=== PATIENT | female | born 1945 | race Caucasian/White ===

== ENCOUNTER 2016-10-05 11:56 | Emergency (ER) | payer MEDICARE, MEDICAID ==
[2016-10-05 12:11] VITALS: BP 107/79
[2016-10-05] MEDS ORDERED: LIDOCAINE 5 APPL TUBE TP ONE (12:59)
--- NOTE | 2016-10-05 13:12 | ERNOTE ---
Integumentary HPI - Narrative Date of Service: 10/05/16 - General Presenting Symptoms: rash Time Seen by Provider: 10/05/16 12:42 Source: patient Exam Limitations: no limitations - Immun/Allergies/Home Medications Immunizations: IMMUNIZATION HX Immunizations Up to Date Yes History of Influenza Vaccine No Hx Pneumococcal Vaccination Yes Allergies/Adverse Reactions: Allergies Allergy/AdvReac Type Severity Reaction Status Date / Time ciprofloxacin Allergy Intermediate BRONCHOSPAS Verified 10/05/16 12:11 M codeine [Codeine] AdvReac Mild ABD PAIN Verified 10/05/16 12:11 codeine phosphate AdvReac Mild ABD PAIN Verified 10/05/16 12:11 [From Codeine Phosphate Soluble] Home Medications: HOME MEDICATIONS Aspirin [Aspirin Chewable] 81 mg PO DAILY 02/05/15 [Last Taken 03/10/15 07:00] DULoxetine HCL [Cymbalta] 60 mg PO DAILY #0 03/06/15 [Last Taken 03/10/15 07:00 ] Acetaminophen [Tylenol] 650 mg PO Q4H PRN 04/18/15 [Last Taken Unknown] Ascorbic Acid [Vitamin C] 500 mg PO DAILY 04/18/15 [Last Taken Unknown] Calcium Carb/D3/Magnesium/Zinc [Ryan Mag Zinc + D Tablet] 1 each PO TID 04/18/15 [Last Taken Unknown] Cholecalciferol [Vitamin D] 1,000 unit PO DAILY 04/18/15 [Last Taken Unknown] Insulin Glargine,Hum.rec.anlog [Lantus] 8 units SC DAILY 04/18/15 [Last Taken Unknown] Insulin Lispro [Humalog] 8 unit SQ 1700 04/18/15 [Last Taken Unknown] Insulin Lispro [Humalog] 16 unit SQ BID 04/18/15 [Last Taken Unknown] oxyCODONE HCL/ACETAMINOPHEN [Percocet 5 MG/325 MG] 1 - 2 tab PO Q4H PRN #30 tab 04/24/15 [Last Taken Unknown] Oxycodone HCl/Acetaminophen [Percocet 10-325 mg Tablet] 1 each PO QID #20 tablet 08/07/15 [Last Taken Unknown] diphenhydrAMINE HCL [Benadryl] 25 mg PO Q6H PRN #30 cap 09/20/16 [Last Taken Unknown] Amlodipine Besylate [Norvasc] 2.5 mg PO DAILY 10/05/16 [Last Taken Unknown] Bisacodyl [Dulcolax] 5 mg PO DAILY PRN 10/05/16 [Last Taken Unknown] Gabapentin [Neurontin] 300 mg PO QID 10/05/16 [Last Taken Unknown] Ibuprofen [Motrin] 800 mg PO QID PRN 10/05/16 [Last Taken Unknown] Lamotrigine [Lamictal Xr] 100 mg PO BID 10/05/16 [Last Taken Unknown] Levothyroxine Sodium [Synthroid] 25 mcg PO DAILY 10/05/16 [Last Taken Unknown] Lidocaine [Lc-5] 45 gm TP BID #1 cream..g. 10/05/16 [Last Taken Unknown] Losartan Potassium [Cozaar] 25 mg PO DAILY 10/05/16 [Last Taken Unknown] Magnesium 250 mg PO TID 10/05/16 [Last Taken Unknown] Methotrexate Sodium [Methotrexate] 2.5 mg PO DAILY 10/05/16 [Last Taken Unknown] Metoprolol Tartrate [Lopressor] 25 mg PO BID 10/05/16 [Last Taken Unknown] Miconazole Nitrate 1 appl TP BID #1 tube 10/05/16 [Last Taken Unknown] Mirtazapine [Mirtazapine (Remeron)] 15 mg PO DAILY 10/05/16 [Last Taken Unknown] Multivitamin [One Daily Essential] 1 each PO DAILY 10/05/16 [Last Taken Unknown] Omeprazole [Prilosec] 20 mg PO DAILY 10/05/16 [Last Taken Unknown] Prednisone [Moon] 5 mg PO DAILY 10/05/16 [Last Taken Unknown] Simvastatin [Zocor] 40 mg PO HS 10/05/16 [Last Taken Unknown] - History of Present Illness Narrative: Pt. comes in with c/o increase pain from ringworm on her back. Pt. was diagnosed with ring worm three weeks ago and was started on a cream and pill and is unsure of what medications she has been on for this but states that the pain has worsened over the rash. Review of Systems - Review of Systems Constitutional: Present: no symptoms reported. Absent: recent illness, fever, chills, fatigue, malaise EYE: Present: no symptoms reported ENT: Present: no symptoms reported Respiratory: Present: no symptoms reported. Absent: shortness of breath, cough , wheezing Cardiology: Present: no symptoms reported. Absent: chest pain, palpitations, edema Gastrointestinal/Abdominal: Present: no symptoms reported. Absent: nausea, vomiting, diarrhea Genitourinary: Present: no symptoms reported Musculoskeletal: Present: no symptoms reported. Absent: back pain, joint pain Skin: Present: rash - middle of back and in spots on R and L side of spine Neurological: Present: no symptoms reported. Absent: headache, dizziness/light- headedness, numbness, tingling All Other Systems: All systems neg except as marked - Patient's Past Medical History Patient History - Medical: Anxiety, Arthritis, Cataracts, Chronic Pain, Diabetes Type 2, Depression, UTI'S Patient History - Cardiac/Respiratory: Hypertension, Hyperlipidemia Patient History - Cancer: No Hx of Cancer Patient History - Surgical Procedures: Back Surgery, Cataracts, Cholecystectomy , Other - Family History Mother Family History - Medical: Family History - Cardiac/Respiratory: CHF, Myocardial Infarction Brother Family History - Medical: - Social History Living Situations: home Alcohol Use: none Drug Use: none Physical Exam - Physical Exam General Appearance: Present: wd/wn, alert, no apparent distress Eye Exam: Normal inspection: bilateral, PERRL: bilateral, EOMI: bilateral Ears, Nose, Throat: Present: normal ENT inspection, hearing grossly normal, normal pharynx Neck: Present: normal inspection, nontender. Absent: lymphadenopathy (R), lymphadenopathy (L) Respiratory: Present: no respiratory distress, normal breath sounds, no accessory muscle use, chest nontender, lungs clear Cardiovascular/Chest: Present: regular rate, rhythm, no murmur, normal peripheral pulses Gastrointestinal/Abdominal: Present: normal bowel sounds, nontender, nondistended, soft, no organomegaly Back Exam: Present: normal range of motion, no CVA tenderness, no vertebral tenderness Extremity Exam: Present: normal inspection, non-tender, no edema, normal range of motion Neurological Exam: Present: alert, oriented, normal mood/affect, no motor/ sensory deficits, 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 Vital Signs: Vital Signs 10/05/16 12:05 Temperature 36.2 C L Pulse Rate 97 Respiratory 12 Rate Blood Pressure 107/79 O2 Sat by Pulse 96 Oximetry - Progress/Reassessment Chief Complaint: Rash Departure Clinical Impression: Ringworm - Departure Disposition: Home self-care Condition: Good Instructions: Body Ringworm Additional Instructions: Please stop the turbinafine and start miconazole cream and lidocaine cream. Referrals: Michael Small MD [Primary Care Provider] - Prescriptions: Lidocaine [Lc-5] 45 gm TP BID #1 cream..g. Miconazole Nitrate 1 appl TP BID #1 tube
[2016-10-05] MEDS ORDERED: LIDOCAINE 35 APPL TUBE TP ONE (13:13)
== END 2016-10-05 13:23 | disposition home or self-care (01) ==
LOC: ER 11:56
DX: B35.8 Other dermatophytoses (principal); Z90.49 Acquired absence of other specified parts of digestive tract; E11.9 Type 2 diabetes mellitus without complications; Z79.4 Long term (current) use of insulin; F41.1 Generalized anxiety disorder

== ENCOUNTER 2016-10-16 10:35 | Emergency (ER) | payer MEDICARE, MEDICAID ==
[2016-10-16] MEDS ORDERED: NORMAL SALINE 1,000 ML IV ONE (13:10)
[2016-10-16] MEDS ORDERED: ONDANSETRON HCL/PF 2 MG/ML VIAL IV ONE (13:11)
--- NOTE | 2016-10-16 13:20 | ERNOTE ---
Integumentary HPI - Narrative Date of Service: 10/16/16 - General Presenting Symptoms: rash, other - weakness, SOB, abd pain, NVD Time Seen by Provider: 10/16/16 12:43 Source: patient, family Exam Limitations: no limitations - Immun/Allergies/Home Medications Immunizations: IMMUNIZATION HX Immunizations Up to Date Yes History of Influenza Vaccine No Hx Pneumococcal Vaccination Yes Allergies/Adverse Reactions: Allergies Allergy/AdvReac Type Severity Reaction Status Date / Time ciprofloxacin Allergy Intermediate BRONCHOSPAS Verified 10/16/16 11:17 M codeine [Codeine] AdvReac Mild ABD PAIN Verified 10/16/16 11:17 codeine phosphate AdvReac Mild ABD PAIN Verified 10/16/16 11:17 [From Codeine Phosphate Soluble] Home Medications: HOME MEDICATIONS Aspirin [Aspirin Chewable] 81 mg PO DAILY 02/05/15 [Last Taken 03/10/15 07:00] DULoxetine HCL [Cymbalta] 60 mg PO DAILY #0 03/06/15 [Last Taken 03/10/15 07:00 ] Acetaminophen [Tylenol] 650 mg PO Q4H PRN 04/18/15 [Last Taken Unknown] Ascorbic Acid [Vitamin C] 500 mg PO DAILY 04/18/15 [Last Taken Unknown] Calcium Carb/D3/Magnesium/Zinc [Ryan Mag Zinc + D Tablet] 1 each PO TID 04/18/15 [Last Taken Unknown] Cholecalciferol [Vitamin D] 1,000 unit PO DAILY 04/18/15 [Last Taken Unknown] Insulin Glargine,Hum.rec.anlog [Lantus] 8 units SC DAILY 04/18/15 [Last Taken Unknown] Insulin Lispro [Humalog] 8 unit SQ 1700 04/18/15 [Last Taken Unknown] Insulin Lispro [Humalog] 16 unit SQ BID 04/18/15 [Last Taken Unknown] oxyCODONE HCL/ACETAMINOPHEN [Percocet 5 MG/325 MG] 1 - 2 tab PO Q4H PRN #30 tab 04/24/15 [Last Taken Unknown] Oxycodone HCl/Acetaminophen [Percocet 10-325 mg Tablet] 1 each PO QID #20 tablet 08/07/15 [Last Taken Unknown] diphenhydrAMINE HCL [Benadryl] 25 mg PO Q6H PRN #30 cap 09/20/16 [Last Taken Unknown] Amlodipine Besylate [Norvasc] 2.5 mg PO DAILY 10/05/16 [Last Taken Unknown] Bisacodyl [Dulcolax] 5 mg PO DAILY PRN 10/05/16 [Last Taken Unknown] Gabapentin [Neurontin] 300 mg PO QID 10/05/16 [Last Taken Unknown] Ibuprofen [Motrin] 800 mg PO QID PRN 10/05/16 [Last Taken Unknown] Lamotrigine [Lamictal Xr] 100 mg PO BID 10/05/16 [Last Taken Unknown] Levothyroxine Sodium [Synthroid] 25 mcg PO DAILY 10/05/16 [Last Taken Unknown] Lidocaine [Lc-5] 45 gm TP BID #1 cream..g. 10/05/16 [Last Taken Unknown] Losartan Potassium [Cozaar] 25 mg PO DAILY 10/05/16 [Last Taken Unknown] Magnesium 250 mg PO TID 10/05/16 [Last Taken Unknown] Methotrexate Sodium [Methotrexate] 2.5 mg PO DAILY 10/05/16 [Last Taken Unknown] Metoprolol Tartrate [Lopressor] 25 mg PO BID 10/05/16 [Last Taken Unknown] Miconazole Nitrate 1 appl TP BID #1 tube 10/05/16 [Last Taken Unknown] Mirtazapine [Mirtazapine (Remeron)] 15 mg PO DAILY 10/05/16 [Last Taken Unknown] Multivitamin [One Daily Essential] 1 each PO DAILY 10/05/16 [Last Taken Unknown] Omeprazole [Prilosec] 20 mg PO DAILY 10/05/16 [Last Taken Unknown] Prednisone [Moon] 5 mg PO DAILY 10/05/16 [Last Taken Unknown] Simvastatin [Zocor] 40 mg PO HS 10/05/16 [Last Taken Unknown] hydrOXYzine HCL [Atarax] 25 mg PO Q4H PRN #40 tab 10/16/16 [Last Taken Unknown] - History of Present Illness Narrative: Pt. comes in with c/o abd pain, nausea, vomiting, weakness, SOB, cough, generalized rash, and malaise. Pt. states that there were bed bugs recently found in her couch and in her home. Pt. denies any fevers but states that she took her insulin this morning and has not been able to eat or drink this morning and keep it down. Pt. has been undergoing treatment for ringworm without resolution. Review of Systems - Review of Systems Constitutional: Present: weakness, fatigue, malaise. Absent: recent illness, fever, chills EYE: Present: no symptoms reported ENT: Present: no symptoms reported Respiratory: Present: shortness of breath, cough, orthopnea. Absent: wheezing Cardiology: Present: no symptoms reported. Absent: chest pain, palpitations, edema Gastrointestinal/Abdominal: Present: nausea, vomiting, diarrhea, abdominal pain - BUQ Genitourinary: Present: no symptoms reported. Absent: frequency, decreased urinary output Musculoskeletal: Present: no symptoms reported. Absent: back pain, joint pain Skin: Present: rash - B arms chest and back. Absent: change in color, change in hair/nails Neurological: Present: dizziness/light-headedness. Absent: headache, numbness, tingling Endocrine: Present: no symptoms reported Hematologic/Lymphatic: Present: no symptoms reported All Other Systems: All systems neg except as marked - Patient's Past Medical History Patient History - Medical: Anxiety, Arthritis, Cataracts, Chronic Pain, Diabetes Type 2, Depression, UTI'S Patient History - Cardiac/Respiratory: Hypertension, Hyperlipidemia Patient History - Cancer: No Hx of Cancer Patient History - Surgical Procedures: Back Surgery, Cataracts, Cholecystectomy , Other - Family History Mother Family History - Medical: Family History - Cardiac/Respiratory: CHF, Myocardial Infarction Brother Family History - Medical: - Social History Living Situations: home Smoking Status: Former smoker Have you smoked in the past 12 months: No Do you dip or chew tobacco: No Alcohol Use: none Drug Use: none Physical Exam - Physical Exam General Appearance: Present: wd/wn, alert, no apparent distress Eye Exam: Normal inspection: bilateral, PERRL: bilateral, EOMI: bilateral Ears, Nose, Throat: Present: normal ENT inspection, hearing grossly normal, normal pharynx Neck: Present: normal inspection, nontender. Absent: lymphadenopathy (R), lymphadenopathy (L) Respiratory: Present: no respiratory distress, no accessory muscle use, chest nontender, decreased breath sounds. Absent: rhonchi Cardiovascular/Chest: Present: regular rate, rhythm, normal peripheral pulses, systolic murmur Gastrointestinal/Abdominal: Present: tenderness - BUQ, abnormal bowel sounds - hyper. 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 - Vital Signs Patient's Vital Signs:: I have reviewed the patient's vital signs. Vital Signs: Vital Signs 10/16/16 11:13 Temperature 36.2 C L Pulse Rate 99 Respiratory 14 Rate Blood Pressure 129/56 O2 Sat by Pulse 98 Oximetry - EKG EKG: NSR, unchanged from, other - ivcd EKG read: Interp. by me - X-Ray X-Ray #1 X-Ray: chest Interpretation: Interp. by me X-ray Comments: no acute CP process X-Ray #2 X-Ray: abdomen Interpretation: Interp. by me X-ray Comments: prominent gastrum and small bowel some mild air fluid levels non obstructive. - Progress/Reassessment Chief Complaint: Rash Progress:: Unchanged Departure Clinical Impression: Gastroenteritis, Infestation by bed bug COPD (chronic obstructive pulmonary disease) Qualifiers: COPD type: unspecified COPD Qualified Code(s): J44.9 - Chronic obstructive pulmonary disease, unspecified - Departure Disposition: Home self-care Condition: Good Instructions: Rehydration, Elderly, Viral Gastroenteritis, Adult, [id number] Additional Instructions: Please follow up with primary provider in 2-3 days. Increase fluid intake. Referrals: Michael Small MD [Primary Care Provider] - Prescriptions: hydrOXYzine HCL [Atarax] 25 mg PO Q4H PRN #40 tab PRN Reason: Itching
[2016-10-16 13:32] LABS: Hematocrit 39.7 % (37.0-47.0); Hemoglobin 12.8 gm/dL (12.5-16.0); Mean Corpuscular Hemoglobin 32.2 pg (27-31); Mean Corpuscular Hgb Conc 32.2 g/dl (32-36); Mean Platelet Volume 8.6 fl (6.0-9.5); Neutrophil # 10.1 K/mm3 (1.3-6.0); Neutrophil % 90.6 % (42-75.0); Platelet Count 332 K/mm3 (150-450); Red Blood Count 3.97 M/mm3 (4.2-5.4); Red Cell Distribution Width 14.3 % (11.5-14.0); White Blood Count 11.2 K/mm3 (4.0-10.5)
[2016-10-16 13:52] LABS: ALT 27 U/L (19-67); AST 17 U/L (0-48); Albumin * 3.8 gm/dl (3.4-5.0); Alkaline Phosphatase * 76 U/L (50-170); Amylase * 50 U/L (25-115); Anion Gap 12.7 mmol/L (6.8-13.8); BNP * 60 pg/mL (5-325); BUN/Creatinine Ratio 27.1 (9.0-21.6); Bilirubin, Total 0.4 mg/dL (0.0-1.1); Blood Urea Nitrogen 23 mg/dL (3-23); Calcium * 9.2 mg/dL (7.9-10.9); Carbon Dioxide 28.7 mmol/L (24-32.6); Chloride 106 mmol/L (97-106); Glucose * 93 mg/dL (70-110); Lipase 114 U/L (73-393); Potassium 4.4 mmol/L (3.4-4.6); Sodium 143 mmol/L (132-142); Total Protein 7.5 gm/dL (6.2-8.2); Troponin I Less than 0.017 ng/ml (0.00-0.10)
[2016-10-16 16:19] LABS: Urine Appearance Slightly Cloudy; Urine Bilirubin Negative (NEGATIVE); Urine Blood Negative /ul (NEGATIVE); Urine Color Yellow; Urine Ketone 5 mg/dL (NEGATIVE)
[2016-10-16 16:20] LABS: Urine Nitrite Negative (NEGATIVE); Urine Protein Negative (NEGATIVE); Urine Urobilinogen Normal (NORMAL)
[2016-10-16] MEDS ORDERED: ONDANSETRON 4 MG TAB.RAPDIS PO ONE (16:20)
[2016-10-16 16:22] LABS: Urine Bacteria 1+; Urine RBC None Seen /hpf (0-5)
[2016-10-16 16:23] LABS: Urine Mucus Few - 1+
[2016-10-16] MEDS ORDERED: ONDANSETRON 4 MG TAB.RAPDIS ONE (16:25)
[2016-10-16 18:14] VITALS: BP 110/81
== END 2016-10-16 18:18 | disposition home or self-care (01) ==
LOC: ER 10:35
DX: K52.9 Noninfective gastroenteritis and colitis, unspecified (principal); B88.8 Other specified infestations; J44.9 Chronic obstructive pulmonary disease, unspecified; N39.0 Urinary tract infection, site not specified; Z87.891 Personal history of nicotine dependence; Z90.49 Acquired absence of other specified parts of digestive tract; I10 Essential (primary) hypertension; E11.9 Type 2 diabetes mellitus without complications; Z79.4 Long term (current) use of insulin

== ENCOUNTER 2016-12-22 08:32 | Observation (INO) | payer MEDICARE, MEDICAID ==
--- OUTSIDE RECORDS SUMMARY | 2016-12-22 08:58 | XMS REPORT | Continuity of Care Document ---
:1945 Author Organization [facility] ([facility]) Address [address] [place] [address] Phone [phone] Care Team Providers Name Role Phone Michael Brothers Primary Care Provider [phone] Source Comments This disclosure is being made pursuant to the Care Everywhere program, applicable federal and state laws, and may not contain all informaitonavailable regarding this patient.[facility] ([facility]) Active Allergies and Adverse Reactions Allergen Noted Date Severity Reactions Comments Ciprofloxacin 02/24/2015 Rash Codeine OTHER hyper Topiramate Urticaria (Hives) Current Medications Prescription Sig. Disp. Refills Start End Date Status Date lamoTRIgine 100 mg Take 100 mg by Active tablet mouth 2 times daily. aspirin 81 mg Take 81 mg by Active tablet mouth daily. Calcium-Magnesium- Take 1 Tab by Active Zinc Tab mouth 3 times daily CHOLECALCIFEROL, Take 1,000 mg by Active VITAMIN D3, mouth daily. (VITAMIN D-3 PO) DULoxetine 30 mg Take 60 mg by Active XR capsule mouth daily losartan 25 mg Take 25 mg by Active tablet mouth daily acetaminophen 325 Take 2 Tabs (650 30 Tab 0 Active mg tablet mg total) by mouth 5 every 6 hours as needed Do no exceed 3000 mg tylenol in 24 hours insulin glargine Inject 20 Units 10 mL 1 Active (LanTUS) 100 subcutaneously 5 unit/mL injection daily In morning vial insulin lispro INJECT 16 UNITS 10 mL 1 Active (HumaLOG) 100 SUBCUTANEOUSLY AT 5 unit/mL injection BREAKFAST AND vial LUNCH, 12 UNITS AT DINNER AND PER SLIDING SCALE 3 TIMES DAILY WITH MEALS polyethylene DISSOLVE 17 G (1 527 g 1 Active glycol 3350 CAPFUL) IN 8 5 (MIRALAX) 17 OUNCES OF LIQUID gram/dose powder AND DRINK DAILY SUPPLY insulin Inject 100 Syringe 2 Active syringe w/ needle subcutaneously 4 5 U-100 0.3 mL 31 g times daily x 02/07" metoPROLol Take 25 mg by Active tartrate 25 mg mouth 2 times tablet daily magnesium 250 mg Take 250 mg by Active tablet mouth 3 times daily simvastatin 40 mg Take 40 mg by Active tablet mouth every evening ALPRAZolam 1 mg Take 1 mg by mouth Active tablet 3 times daily as needed CALCIUM CARBONATE Take 1 tablet by Active (CALCIUM 600 PO) mouth daily vitamin E PO Take 1 tablet by Active mouth daily oxyCODONE-acetamin Take 1 tablet by Active ophen 7.5-325 mg mouth every 4 per tablet hours as needed ibuprofen 200 mg Take 800 mg by Active tablet mouth every 6 hours as needed omeprazole 20 mg Take 20 mg by Active enteric coated mouth daily capsule amLODIPine 2.5 mg Take 2.5 mg by Active tablet mouth daily multivitamin Take 1 tablet by Active tablet mouth daily. bisacodyl 5 mg EC Take 5 mg by mouth Active tablet daily. gabapentin 300 mg Take 600 mg by Active capsule mouth 3 times daily. denosumab (PROLIA) Inject 60 mg Active 60 mg/mL injection subcutaneously once. mirtazapine 15 mg Take 15 mg by Active tablet mouth at bedtime. methotrexate 2.5 Take 6 tablets (15 24 tablet 1 Active mg tablet mg total) by mouth 6 every week. folic acid 1 mg Take 1 tablet (1 90 tablet 1 Active tablet mg total) by mouth 6 daily. lidocaine 5 % Apply 1 Active ointment application topically 2 times daily as needed. clotrimazole-betam Apply topically 2 Active ethasone 1-0.05% times daily. cream calcium carbonate Take 300 mg by Active (TUMS) (300 mg Ca) mouth 2 times 750 mg chewable daily. tablet levothyroxine 25 Take 25 mcg by Active mcg tablet mouth daily. Synthroid predniSONE 5 mg Take 1 Tab (5 mg 30 Tab 0 12/21/19 Discontinued tablet total) by mouth 5 17 daily methotrexate 2.5 Take 8 tablets (20 32 tablet 2 12/15/19 Discontinued mg tablet mg total) by mouth 6 17 every week. Can take 4 tablet in the morning and 4 tablets in the evening of the same day. insulin aspart mix Inject 12/15/19 Discontinued (NovoLOG 70-30 subcutaneously 2 17 FLEXPEN) 100 times daily with unit/mL injection meals. 16 units pen before breakfast, 8 units before supper Active Problems Problem Noted Date Osteoporosis 06/17/2015 Compression fracture of Thoracic spine T11 02/24/2015 Back pain 02/24/2015 Seizure disorder 02/24/2015 Temporal arteritis 02/24/2015 Drug-induced hyperglycemia 02/24/2015 Acute, but ill-defined, cerebrovascular disease 02/01/2008 Most Recent Encounters Date Type Specialty Providers Description 12/20/2016 Telephone Med Endocrinology Kendy Escalante MD 12/14/2016 Office Visit Pathology Kendy Escalante Chief Comp: Patient MD Guillermo Reported Reason For Lab Services, Pfp Visit 12/14/2016 Office Visit Med Endocrinology Kendy Escalante Dx: Araceli Li MD (Primary Dx) Social History Tobacco Use Types Packs/Day Years Used Date Former Smoker Cigarettes 1.5 Quit: 02/20/1994 Smokeless Tobacco: Never Used Tobacco Cessation:Counseling Given: Yes Comments:Quit in 1979 Alcohol Use Drinks/Week oz/Week Comments No 0 Standard drinks or equivalent 0.0 Last Filed Vital Signs Vital Sign Reading Time Taken Blood Pressure 113/68 12/14/2016 1:07 PM CDT Pulse 74 12/14/2016 1:07 PM CDT Temperature 36.5 C (97.7 F) 12/14/2016 1:07 PM CDT Respiratory Rate 20 04/13/2015 12:15 PM CDT Height 1.626 m (5' 4.02") 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 Weight 83.5 kg (184 lb 1.4 oz) 12/14/2016 1:07 PM CDT Body Mass Index 31.58 12/14/2016 1:07 PM CDT Oxygen Saturation 98% 04/13/2015 12:15 PM CDT Plan of Care Date Type Specialty Providers Description 02/06/2017 Appointment Med Rheumatology Natacha Ennis, Chief Comp: Patient Reported Reason For [address] [place] [address] [phone] (Fax) 12/20/2017 Appointment [facility] Default, Other Bill[facility] - [facility] [address] [place] [address] [phone] (Fax) Chief Comp: Patient Krystina Barcenas MD [address] [place] [address] [phone] (Fax) Reported Reason For Visit 12/20/2017 Appointment Med Endocrinology Kendy Escalante Chief Comp: Alfred Li MD Reported Reason For [address] [facility] [place] [address] [phone] (Fax) Health Maintenance Due Date Last Done Comments Hepatitis B Vaccine (1 of 3 - Primary 1945 Series) Tdap Vaccine 12/03/1954 DIABETIC: Microalbumin 12/03/1961 Td Vaccine 12/03/1961 Mammogram 1983 Colonoscopy 12/03/1993 Zoster Vaccine 2003 Pneumococcal Vaccine (1 of 2 - PCV13) 12/03/2008 DIABETIC: Cholesterol 02/01/2009 02/02/2008 Diabetic: Hdl 02/01/2009 02/02/2008 Diabetic: Ldl 02/01/2009 02/02/2008 DIABETIC: Triglycerides 02/01/2009 02/02/2008 DIABETIC: Foot Exam 02/24/2015 DIABETIC: Retinal Eye Exam 02/24/2015 DIABETIC: Hemoglobin A1C 08/27/2015 02/25/2015, 02/02/2008 Influenza Vaccine: Seasonal (#1) 04/25/2016 Osteoporosis Screening (DXA Bone Density) Completed 06/24/2015 Results from Last 3 Months VITAMIN D, 25-HYDROXY (12/14/2016 2:15 PM) Component Value Range Vitamin D, 25-OH 32Comment: 20-80 ng/mL This assay accurately quantifies the sum of 25-hydroxyvitamin D3 and 25- hydroxyvitamin D2. Endocrine Society, [place] of [employer] (IOM), and World Health Organization (WHO) guidelines designate 25-h ydroxyvitamin D plasma concentrations below 20 ng/mL as deficient, based on increased frequency of adverse outcomes (e.g., osteoporotic fractures). 25-Hydroxyvitamin D reference ranges are a controversial topic, with some authorities suggesting optimal concentrations should be 30 ng/mL or higher based on correlations of 25-hydroxyvitamin D plasma concentrations with physiological parameters such as parathyroid hormone or calcium concentrations. However, optimal 25-hydroxyvitamin D concentrations greater than 20 ng/mL may be considered for specific disease conditions. Vitamin D toxicity is uncommon but may be seen at 25-hydroxyvitamin D concentrations greater than 150 ng/mL. Specimen Blood CREATININE (12/14/2016 2:15 PM) Component Value Range Creatinine 0.9Comment: 0.5-1.0 mg/dL Creatinine switched to enzymatic method on 02/01/2011.GFR equation switched to IDMS-traceable MDRD equation on 02/01/2011. Calculated GFR values are not valid in clinical settings where serum creatinine is changing. Calculated GFR 61 >60 mL/min/1.73 m2 Specimen Blood CALCIUM (12/14/2016 2:15 PM) Component Value Range Calcium 9.5 8.5-10.5 mg/dL Specimen Blood EXTERNAL MISCELLANEOUS LAB (11/28/2016) Component Value Range Ext Albumin 3.9 3.4-5.0 G/DL Ext ALT 29 19-67 U/L Ext AST 21 0-48 U/L Ext TSH 3.087 0.358-3.74 UIU/ML Ext Sedimentation Rate 30(A) 0-15 MM/HR Ext Creatinine 0.97 0.4-1.4 MG/DL Ext CRP <0.2 0.0-0.9 MG/DL Ext WBC Count 7.3 4.0-10.5 K/MM3 Ext Hemoglobin 12.8 12.5-16.0 G/DL Ext MCV (Mean Corpuscular Volume) 99 78-100 FL Ext Platelet Count 333 150-450 K/MM3
[2016-12-22 09:02] LABS: Urine Bilirubin Negative (NEGATIVE); Urine Ketone Negative (NEGATIVE); Urine Nitrite Negative (NEGATIVE); Urine Protein 15 mg/dL (NEGATIVE); Urine Specific Gravity 1.025 SP.GR. (1.005-1.010); Urine Urobilinogen Normal (NORMAL)
[2016-12-22 09:09] LABS: Urine Appearance Cloudy; Urine Bacteria 3+; Urine Blood 10 /ul (NEGATIVE); Urine Color Yellow; Urine RBC 0-5 /hpf (0-5); Urine Renal Epithelial Cell Few - 1+ /hpf; Urine WBC 25-50 /hpf (0-5)
--- NOTE | 2016-12-22 09:11 | ERNOTE ---
Medical Problem HPI - General Chief Complaint: General Assessment Time Seen by Provider: 12/22/16 08:46 Source: patient, family, EMS Exam Limitations: no limitations - Immun/Allergies/Home Medications Immunizations: IMMUNIZATION HX Immunizations Up to Date Yes History of Influenza Vaccine No Hx Pneumococcal Vaccination Yes Allergies/Adverse Reactions: Allergies ciprofloxacin Allergy (Intermediate, Verified 12/22/16 08:45) BRONCHOSPASM codeine [Codeine] Adverse Reaction (Mild, Verified 12/22/16 08:45) ABD PAIN codeine phosphate [From Codeine Phosphate Soluble] Adverse Reaction (Mild, Verified 12/22/16 08:45) ABD PAIN Home Medications: HOME MEDICATIONS Aspirin [Aspirin Chewable] 81 mg PO DAILY 02/05/15 [Last Taken 03/10/15 07:00] DULoxetine HCL [Cymbalta] 60 mg PO DAILY #0 03/06/15 [Last Taken 03/10/15 07:00 ] Acetaminophen [Tylenol] 650 mg PO Q4H PRN 04/18/15 [Last Taken Unknown] Ascorbic Acid [Vitamin C] 500 mg PO DAILY 04/18/15 [Last Taken Unknown] Calcium Carb/D3/Magnesium/Zinc [Ryan Mag Zinc + D Tablet] 1 each PO TID 04/18/15 [Last Taken Unknown] Cholecalciferol [Vitamin D] 1,000 unit PO DAILY 04/18/15 [Last Taken Unknown] Insulin Glargine,Hum.rec.anlog [Lantus] 8 units SC DAILY 04/18/15 [Last Taken Unknown] Insulin Lispro [Humalog] 8 unit SQ 1700 04/18/15 [Last Taken Unknown] Insulin Lispro [Humalog] 16 unit SQ BID 04/18/15 [Last Taken Unknown] oxyCODONE HCL/ACETAMINOPHEN [Percocet 5 MG/325 MG] 1 - 2 tab PO Q4H PRN #30 tab 04/24/15 [Last Taken Unknown] oxyCODONE HCL/ACETAMINOPHEN [Percocet 10-325 mg Tablet] 1 each PO QID #20 tablet 08/07/15 [Last Taken Unknown] Amlodipine Besylate [Norvasc] 2.5 mg PO DAILY 10/05/16 [Last Taken Unknown] Bisacodyl [Dulcolax] 5 mg PO DAILY PRN 10/05/16 [Last Taken Unknown] Gabapentin [Neurontin] 600 mg PO TID 10/05/16 [Last Taken Unknown] Ibuprofen [Motrin] 800 mg PO QID PRN 10/05/16 [Last Taken Unknown] Levothyroxine Sodium [Synthroid] 25 mcg PO DAILY 10/05/16 [Last Taken Unknown] Lidocaine [Lc-5] 45 gm TP BID #1 cream..g. 10/05/16 [Last Taken Unknown] Losartan Potassium [Cozaar] 25 mg PO DAILY 10/05/16 [Last Taken Unknown] Magnesium 250 mg PO TID 10/05/16 [Last Taken Unknown] Methotrexate Sodium [Methotrexate] 2.5 mg PO DAILY 10/05/16 [Last Taken Unknown] Metoprolol Tartrate [Lopressor] 25 mg PO BID 10/05/16 [Last Taken Unknown] Mirtazapine [Mirtazapine (Remeron)] 15 mg PO DAILY 10/05/16 [Last Taken Unknown] Multivitamin [One Daily Essential] 1 each PO DAILY 10/05/16 [Last Taken Unknown] Omeprazole [Prilosec] 20 mg PO DAILY 10/05/16 [Last Taken Unknown] Simvastatin [Zocor] 40 mg PO HS 10/05/16 [Last Taken Unknown] lamoTRIgine [Lamictal Xr] 100 mg PO BID 10/05/16 [Last Taken Unknown] Folic Acid 1 mg PO DAILY 12/22/16 [Last Taken Unknown] - History of Present History Narrative: Daughter states that her mother appears to be somewhat confused. She stated that the mother did not feel very well last night got up this morning and appeared to be unable to hold her balance very well and fell against the door jam. The ambulance people arrived she was found to be hypoglycemic and has apparently been improving very slowly after being given oral glucose. Timing: constant Severity: moderate Modifying Factors - (Improves): Present: other - glucose Review of Systems - Review of Systems Constitutional: Present: See HPI EYE: Present: no symptoms reported ENT: Present: no symptoms reported Respiratory: Present: no symptoms reported Cardiology: Present: no symptoms reported Gastrointestinal/Abdominal: Present: no symptoms reported Genitourinary: Present: no symptoms reported Musculoskeletal: Present: no symptoms reported Skin: Present: no symptoms reported Neurological: Present: other - pt is slow to respond Endocrine: Present: no symptoms reported Hematologic/Lymphatic: Present: no symptoms reported Psych: Present: no symptoms reported - Patient's Past Medical History Patient History - Medical: Anxiety, Arthritis, Cataracts, Chronic Pain, Diabetes Type 2, Depression, UTI'S Patient History - Cardiac/Respiratory: No pertinent hx Patient History - Cancer: No Hx of Cancer Patient History - Surgical Procedures: Back Surgery, Cataracts, Cholecystectomy , Other Patient History - Other: None - Family History Mother Family History - Medical: Family History - Cardiac/Respiratory: CHF, Myocardial Infarction Brother Family History - Medical: - Social History Living Situations: home Abuse History: No History of abuse Psych History: Hx of Anxiety, Hx of Depression Alcohol Use: none Drug Use: none - Immunizations Immunizations Up to Date: Yes Hx Pneumococcal Vaccination: Yes History of Influenza Vaccine: No Physical Exam - Physical Exam General Appearance: Present: wd/wn, alert, mild distress Eye Exam: Normal inspection: bilateral, PERRL: bilateral Ears, Nose, Throat: Present: normal ENT inspection, H, normal pharynx Neck: Present: normal inspection, nontender Respiratory: Present: no respiratory distress, normal breath sounds, no accessory muscle use, chest nontender, lungs clear Cardiovascular/Chest: Present: regular rate, rhythm, no murmur, normal peripheral pulses Gastrointestinal/Abdominal: Present: normal bowel sounds, nontender, nondistended, soft, no organomegaly Rectal Exam: Present: deferred Back Exam: Present: normal inspection, normal range of motion Extremity Exam: Present: normal inspection, non-tender, no edema, normal range of motion Neurological Exam: Present: alert, oriented, normal mood/affect, other - slow to respond but appears to respond appropriately Skin Exam: Present: normal color, warm/dry Lymphatic Exam: Present: no adenopathy ED Progress - Results and Orders Patient's Lab Results:: I have reviewed the patient's lab results. - Vital Signs Patient's Vital Signs:: I have reviewed the patient's vital signs. Vital Signs: Vital Signs 12/22/16 12/22/16 08:37 08:56 Temperature 36.8 C Pulse Rate 90 96 Respiratory 12 12 Rate Blood Pressure 134/75 119/64 O2 Sat by Pulse 92 96 Oximetry - X-Ray X-Ray #1 X-Ray: chest Interpretation: Reviewed by me - CT/Ultrasound CT/Ultrasound Narrative: CT results reviewed - Progress/Reassessment Chief Complaint: General Assessment Progress:: Unchanged Plan - Plan Plan: Patient appears to have a pyelonephritis and is somewhat confused and is worrisome for somebody who could possibly become septic. She will be given IV fluids IV antibiotics and be admitted to an observation bed. Patient is also struggling with getting her insulin dosage and her feeding right and showed up hypoglycemic as well, which indicates at least a low-grade level of confusion. Departure - Departure Clinical Impression: Pyelonephritis, acute Altered mental status, unspecified Qualifiers: Altered mental status type: unspecified Qualified Code(s): R41.82 - Altered mental status, unspecified Disposition: [facility] Condition: Fair
[2016-12-22 09:20] LABS: Hematocrit 38.1 % (37.0-47.0); Hemoglobin 12.1 gm/dL (12.5-16.0); Mean Cell Volume 101.6 fl (78-100); Mean Corpuscular Hemoglobin 32.3 pg (27-31); Mean Corpuscular Hgb Conc 31.8 g/dl (32-36); Mean Platelet Volume 8.8 fl (6.0-9.5); Platelet Count 287 K/mm3 (150-450); Red Blood Count 3.75 M/mm3 (4.2-5.4); Red Cell Distribution Width 13.3 % (11.5-14.0); White Blood Count 8.3 K/mm3 (4.0-10.5)
[2016-12-22] MEDS: NORMAL SALINE 1,000 ML in NORMAL SALINE 1,000 ML IV ONE ×2 (09:39→10:43)
[2016-12-22 09:49] LABS: Albumin * 3.5 gm/dl (3.4-5.0); Anion Gap 9.1 mmol/L (6.8-13.8); Bilirubin, Total 0.2 mg/dL (0.0-1.1); Ca. Corrected For Albumin 9.4 mg/dL (8.4-10.2); Calcium * 9.3 mg/dL (7.9-10.9); Carbon Dioxide 29.7 mmol/L (24-32.6); Potassium 3.8 mmol/L (3.4-4.6)
--- OUTSIDE RECORDS SUMMARY | 2016-12-22 10:50 | XMS REPORT | Continuity of Care Document ---
:1945 Author Organization [facility] ([facility]) Address [address] [place] [address] Phone [phone] Care Team Providers Name Role Phone Michael Brothers Primary Care Provider [phone] Source Comments This disclosure is being made pursuant to the Care Everywhere program, applicable federal and state laws, and may not contain all informaitonavailable regarding this patient.[facility] ([facility]) Active Allergies and Adverse Reactions Allergen Noted [...] 1.626 m (5' 4.02") 08/10/2016 10:45 AM [facility] Weight 83.5 kg (184 lb 1.4 oz) 12/14/2016 1:07 PM CDT Body Mass Index 31.58 12/14/2016 1:07 PM CDT Oxygen Saturation 98% 04/13/2015 12:15 PM CDT Plan of Care Date Type Specialty Providers Description 02/06/2017 Appointment Med Rheumatology Natacha Ennis, Chief Comp: Patient Reported Reason For [address] [place] [address] [phone] (Fax) 12/20/2017 Appointment [facility], Other Billg - [facility] [address] [place] [address] [phone] (Fax) Chief Comp: Patient Krystina Barcenas MD [address] [place] [address] [phone] (Fax) Reported Reason For Visit 12/20/2017 Appointment Med Endocrinology Kendy Escalante Chief Comp: Alfred Li MD Reported Reason For [address] [facility] [place] [address] [phone] (Fax) Health Maintenance Due Date Last Done [...] D3 and 25- hydroxyvitamin D2. Endocrine Society, [place] of [employer] (IOM), and World Health Organization [...]
[2016-12-22] MEDS ORDERED: ACETAMINOPHEN 325 MG TABLET PO PRN (12:03)
[2016-12-22] MEDS ORDERED: BISACODYL 5 MG TABLET.DR PO PRN (12:03)
[2016-12-22] MEDS ORDERED: ALPRAZolam 1 MG TABLET PO PRN (12:03)
[2016-12-22] MEDS ORDERED: ALBUTEROL SULFATE 2.5 MG/3 ML VIAL.NEB IH PRN (12:03)
[2016-12-22] MEDS ORDERED: CALCIUM CARBONATE 500 MG TAB.CHEW PO PRN (12:03)
[2016-12-22] MEDS ORDERED: NORMAL SALINE 1,000 ML IV PRN (12:07)
[2016-12-22] MEDS ORDERED: DENOSUMAB 60 MG SQ SCH (12:15)
[2016-12-22] MEDS: ENOXAPARIN SODIUM 40 MG/0.4 ML SYRG SC SCH (13:40)
[2016-12-22] MEDS: GABAPENTIN 300 MG CAPSULE PO SCH ×2 (13:41→21:00)
[2016-12-22] MEDS: CALCIUM CARBONATE/VITAMIN D3 1 TAB TABLET PO SCH ×2 (13:41→17:39)
[2016-12-22] MEDS: lamoTRIgine 100 MG TABLET PO SCH ×2 (13:45→20:57)
[2016-12-22] MEDS: MAGNESIUM OXIDE 400 MG TABLET PO SCH (17:42)
--- NOTE | 2016-12-22 20:48 | HP ---
Chief Complaint - Chief Complaint Date of Service: 12/22/16 Time of Service: 20:33 Chief Complaint: Alteration of mental status History of Present Illness: The patient relates she hasn't felt well for 3 to 4 days. In the [facility] ER this morning her daughter stated that her mother appeared to be somewhat confused. She said that her mother did not feel very well last night, got up this morning , appeared to be unable to hold her balance very well and fell against the door jam bruising her right upper lateral arm. When she fell at home this morning, the daughter called the ambulance. The EMS crew found her fingerstick bloodsugar to be 65 and gave her oral glucose, which seemed to help somewhat. Her blood sugar finger stick was 90 upon arrival in the ER. In the ER today, she was evaluated and thought to have pyelonephritis. Cultures were obtained, and she was started on IV antibiotics. She complains of right lateral elbow and right knee and calf pain, which have been present several weeks. The pain in her knee is behind the knee. She mentions that her daughter has two blood clots at the present time. She also mentions that even now she is wobbly and off balance, cannot ambulate well and is afraid of falling. - Patient's Past Medical History Patient History - Medical: Anxiety, Arthritis, Cataracts, Chronic Pain, Diabetes Type 2, Depression, GERD, Headache, Hypothyroidism, Osteoporosis, UTI'S , Other - chronic pain Patient History - Cardiac/Respiratory: No pertinent hx, Hypertension, Hyperlipidemia Patient History - Cancer: No Hx of Cancer Patient History - Surgical Procedures: Back Surgery, Cataracts, Cholecystectomy , Colonoscopy, Other Patient History - Other: None LMP (females 10-50): Menopausal - Family History Mother Family History - Medical: Family History - Cardiac/Respiratory: CHF, Myocardial Infarction Brother Family History - Medical: - Social History Living Situations: home Abuse History: No History of abuse Psych History: Hx of Anxiety, Hx of Depression Smoking Status: Former smoker Have you smoked in the past 12 months: No Alcohol Use: none Drug Use: none - Immunizations Immunizations Up to Date: Yes Hx Pneumococcal Vaccination: Yes History of Influenza Vaccine: No Review Of Systems (GEN) - Review of Systems Generalized/Overall Review: Present: Weakness - off balance and fall risk, Malaise EENTM: Present: No Symptoms Reported Respiratory: Present: No Symptoms Reported Cardiac: Present: No Symptoms Reported Abdominal: Present: No Symptoms Reported Genitourinary: Present: No Symptoms Reported Musculoskeletal: Present: Other Neurological: Present: Depressed Skin: Present: Bruising - right upper arm Endocrine: Present: No Symptoms Reported Misc: All systems neg except as marked Immunizations: IMMUNIZATION HX Immunizations Up to Date Yes History of Influenza Vaccine No Hx Pneumococcal Vaccination Yes Allergies/Adverse Reactions: Allergies Allergy/AdvReac Type Severity Reaction Status Date / Time ciprofloxacin Allergy Intermediate BRONCHOSPAS Verified 12/22/16 08:45 M codeine [Codeine] AdvReac Mild ABD PAIN Verified 12/22/16 08:45 codeine phosphate AdvReac Mild ABD PAIN Verified 12/22/16 08:45 [From Codeine Phosphate Soluble] Home Medications: HOME MEDICATIONS Aspirin [Aspirin Chewable] 81 mg PO DAILY 02/05/15 [Last Taken 03/10/15 07:00] DULoxetine HCL [Cymbalta] 60 mg PO DAILY #0 03/06/15 [Last Taken 03/10/15 07:00 ] Acetaminophen [Tylenol] 650 mg PO Q4H PRN 04/18/15 [Last Taken Unknown] Calcium Carb/D3/Magnesium/Zinc [Ryan Mag Zinc + D Tablet] 1 each PO TID 04/18/15 [Last Taken Unknown] Cholecalciferol [Vitamin D] 1,000 unit PO DAILY 04/18/15 [Last Taken Unknown] Insulin Glargine,Hum.rec.anlog [Lantus] 8 units SC HS 04/18/15 [Last Taken Unknown] Insulin Lispro [Humalog] 8 unit SQ 1700 04/18/15 [Last Taken Unknown] Insulin Lispro [Humalog] 16 unit SQ 0700 04/18/15 [Last Taken Unknown] Amlodipine Besylate [Norvasc] 2.5 mg PO DAILY 10/05/16 [Last Taken Unknown] Bisacodyl [Dulcolax] 10 - 15 mg PO DAILY PRN 10/05/16 [Last Taken Unknown] Gabapentin [Neurontin] 600 mg PO TID 10/05/16 [Last Taken Unknown] Ibuprofen [Motrin] 800 mg PO Q6H PRN 10/05/16 [Last Taken Unknown] Levothyroxine Sodium [Synthroid] 25 mcg PO DAILY 10/05/16 [Last Taken Unknown] Losartan Potassium [Cozaar] 25 mg PO DAILY 10/05/16 [Last Taken Unknown] Magnesium 250 mg PO TID 10/05/16 [Last Taken Unknown] Methotrexate Sodium [Methotrexate] 2.5 mg PO Q7D 10/05/16 [Last Taken Unknown] Metoprolol Tartrate [Lopressor] 25 mg PO BID 10/05/16 [Last Taken Unknown] Mirtazapine [Mirtazapine (Remeron)] 15 mg PO HS 10/05/16 [Last Taken Unknown] Multivitamin [One Daily Essential] 1 each PO DAILY 10/05/16 [Last Taken Unknown] Omeprazole [Prilosec] 20 mg PO DAILY 10/05/16 [Last Taken Unknown] Simvastatin [Zocor] 40 mg PO HS 10/05/16 [Last Taken Unknown] ALPRAZolam [Xanax] 1 mg PO TID PRN 12/22/16 [Last Taken Unknown] Albuterol Sulfate [Ventolin HFA] 2 puff IH Q6H PRN 12/22/16 [Last Taken Unknown] Calcium Carbonate [Tums] 500 mg PO TID PRN 12/22/16 [Last Taken Unknown] Denosumab [Prolia] 60 mg SQ Q180D 12/22/16 [Last Taken Unknown] Folic Acid 1 mg PO DAILY 12/22/16 [Last Taken Unknown] Lamotrigine [Lamictal] 100 mg PO BID 12/22/16 [Last Taken Unknown] Lidocaine [Lc-5] 1 appl TP BID 12/22/16 [Last Taken Unknown] Polyethylene Glycol 3350 [Miralax] 17 gm PO DAILY 12/22/16 [Last Taken Unknown] Vitamin E 1,000 unit PO DAILY 12/22/16 [Last Taken Unknown] oxyCODONE HCL/ACETAMINOPHEN [Percocet 7.5-325 mg Tablet] 1 each PO TID PRN 12/22 [Last Taken Unknown] Exam - Exam Vital Signs: Vital Signs - Last Taken Selected Entries 12/22/16 12/22/16 08:37 18:00 Temperature 36.8 C 37.4 C Temperature Tympanic Temporal Artery Source Scan Pulse Rate 90 103 H Pulse Rhythm Regular Pulse Strength Normal Respiratory 12 18 Rate Respiratory Normal Depth Respiratory Normal Effort Non-Labored Respiratory Normal Pattern Blood Pressure 134/75 124/79 Blood Pressure Sitting Supine Position O2 Sat by Pulse 92 96 Oximetry Oxygen Delivery Room Air Room Air Method Constitutional: Present: Alert, Oriented x3, Cooperative, Well developed, No distress, Obese ENT Exam: Present: normal ENT inspection, hearing grossly normal Eye Exam: bilateral eye: normal inspection, PERRL, EOMI Neck: Present: non-tender, normal inspection Back Exam: Present: normal inspection Respiratory: Present: lungs clear, no respiratory distress Cardiovascular/Chest: Present: regular rate, rhythm, no murmur Abdomen: Present: Normal bowel sounds, soft, nontender, nondistended, no rebound tenderness, no hepatospenomegaly, no masses, obese Extremity: Present: no pedal edema, calf tenderness - right, other - tender behind right knee, tender right elbow lateral epicondyle Skin Exam: Present: normal color, warm/dry, no cyanosis Neurologic: Present: alert, oriented x 3, motor weakness, other - off balance Appearance: Present: appropriate appearance, neat Eye contact: Present: cooperative, good eye contact Diagnostic Studies: Laboratory Results WBC 8.3 K/mm3 (4.0-10.5) 12/22/16 09:18 RBC 3.75 M/mm3 (4.2-5.4) L 12/22/16 09:18 Hgb 12.1 gm/dL (12.5-16.0) L 12/22/16 09:18 Hct 38.1 % (37.0-47.0) 12/22/16 09:18 MCV 101.6 fl (78-100) H 12/22/16 09:18 MCH 32.3 pg (27-31) H 12/22/16 09:18 MCHC 31.8 g/dl (32-36) L 12/22/16 09:18 RDW 13.3 % (11.5-14.0) 12/22/16 09:18 Plt Count 287 K/mm3 (150-450) 12/22/16 09:18 MPV 8.8 fl (6.0-9.5) 12/22/16 09:18 Immature Gran % (Auto) 0.20 % (0.001-0.429) 12/22/16 09:18 Immature Gran # (Auto) 0.02 K/mm3 (0.000-0.0310) 12/22/16 09:18 Neutrophils % 73.0 % (42-75.0) 12/22/16 09:18 Lymphocytes % 17.2 % (20-51) L 12/22/16 09:18 Monocytes % 7.4 % (0.0-9) 12/22/16 09:18 Eosinophils % 1.8 % (0.0-3.0) 12/22/16 09:18 Basophils % 0.4 % (0.0-1.0) 12/22/16 09:18 Nucleated RBC % 0.0 k/mm3 (0-1) 12/22/16 09:18 Neutrophils # 6.0 K/mm3 (1.3-6.0) 12/22/16 09:18 Lymphocytes # 1.4 k/mm3 (1.5-3.5) L 12/22/16 09:18 Monocytes # 0.6 k/mm3 (0.0-1.0) 12/22/16 09:18 Eosinophils # 0.2 k/mm3 (0.0-0.7) 12/22/16 09:18 Absolute Basophils 0.0 k/mm3 (0.0-0.1) 12/22/16 09:18 Sodium 142 mmol/L (132-142) 12/22/16 09:18 Plasma Sodium 142 mmol/L (130-142) 12/22/16 09:18 Potassium 3.8 mmol/L (3.4-4.6) 12/22/16 09:18 Chloride 107 mmol/L (97-106) H 12/22/16 09:18 Carbon Dioxide 29.7 mmol/L (24-32.6) 12/22/16 09:18 Anion Gap 9.1 mmol/L (6.8-13.8) 12/22/16 09:18 BUN 21 mg/dL (3-23) 12/22/16 09:18 Creatinine 1.00 mg/dL (0.4-1.4) 12/22/16 09:18 Est GFR (Non-Af Amer) 58 mL/min (60-130) L 12/22/16 09:18 BUN/Creatinine Ratio 21.0 (9.0-21.6) 12/22/16 09:18 Random Glucose 83 mg/dL (70-110) 12/22/16 09:18 Lactic Acid, Venous 1.5 mmol/L (0.4-2.0) 12/22/16 08:55 Calcium 9.3 mg/dL (7.9-10.9) 12/22/16 09:18 Calcium Adj for Albumin 9.4 mg/dL (8.4-10.2) 12/22/16 09:18 Total Bilirubin 0.2 mg/dL (0.0-1.1) 12/22/16 09:18 AST 48 U/L (0-48) 12/22/16 09:18 ALT 56 U/L (19-67) 12/22/16 09:18 Alkaline Phosphatase 89 U/L (50-170) 12/22/16 09:18 Total Protein 7.0 gm/dL (6.2-8.2) 12/22/16 09:18 Albumin 3.5 gm/dl (3.4-5.0) 12/22/16 09:18 Urine Color Yellow 12/22/16 08:56 Urine Appearance Cloudy 12/22/16 08:56 Urine pH 6.0 pH (5.0-7.0) 12/22/16 08:56 Ur Specific [place] 1.025 SP.GR. (1.005-1.010) 12/22/16 08:56 Urine Protein 15 mg/dL (NEGATIVE) H 12/22/16 08:56 Urine Glucose (UA) Negative mg/dL (NEGATIVE) 12/22/16 08:56 Urine Ketones Negative mg/dL (NEGATIVE) 12/22/16 08:56 Urine Blood 10 /ul (NEGATIVE) H 12/22/16 08:56 Urine Nitrate Negative (NEGATIVE) 12/22/16 08:56 Urine Bilirubin Negative mg/dl (NEGATIVE) 12/22/16 08:56 Prot Sulfosalicylic Acd Negative mg/dL (0) 12/22/16 08:56 Urine Urobilinogen Normal EU/dl (NORMAL) 12/22/16 08:56 Ur Leukocyte Esterase 500 /ul (NEGATIVE) H 12/22/16 08:56 Urine RBC 0-5 /hpf (0-5) 12/22/16 08:56 Urine WBC 25-50 /hpf (0-5) H 12/22/16 08:56 Ur Epithelial Cells 5-10 /hpf (0-5) H 12/22/16 08:56 Ur Renal Epithelial Cell Few - 1+ /hpf (NONE) H 12/22/16 08:56 Urine Bacteria 3+ (NONE) H 12/22/16 08:56 Urine Culture Comments Culture to follow 12/22/16 08:56 Assessment/Plan - Narrative Narrative: IV antibiotics. PT OT. stop insulin. adjust other meds. wait for cultures. ultrasound right leg veins. Estimated stay 3 days. - Assessment/Plan (1) Diabetes mellitus type 2, insulin dependent Problem: Chronic (2) Tennis elbow Problem: Acute Qualifiers: Laterality: right Qualified Code(s): M77.11 - Lateral epicondylitis, right elbow (3) Balance disorder Problem: Chronic (4) Falls frequently Problem: Chronic (5) Altered mental status, unspecified Problem: Acute Qualifiers: Altered mental status type: unspecified Qualified Code(s): R41.82 - Altered mental status, unspecified (6) Pyelonephritis, acute Problem: Acute (7) COPD (chronic obstructive pulmonary disease) Problem: Chronic Qualifiers: COPD type: chronic bronchitis Chronic bronchitis type: simple Qualified Code(s): J41.0 - Simple chronic bronchitis (8) Hypoglycemia Problem: Acute
[2016-12-22] MEDS: LIDOCAINE 35 APPL TUBE TP SCH (20:58)
[2016-12-22] MEDS: METOPROLOL TARTRATE 25 MG TABLET PO SCH (20:58)
[2016-12-22] MEDS ORDERED: SIMVASTATIN 40 MG TABLET PO SCH (21:00)
[2016-12-22] MEDS ORDERED: MIRTAZAPINE 15 MG TABLET PO SCH (21:00)
[2016-12-22] MEDS: TROLAMINE SALICYLATE 90 APPL TUBE TP SCH (21:12)
[2016-12-22] MEDS: ACETAMINOPHEN 325 MG TABLET PO PRN (21:15)
[2016-12-23 06:14] LABS: Hematocrit 36.7 % (37.0-47.0); Hemoglobin 11.6 gm/dL (12.5-16.0); Mean Cell Volume 100.8 fl (78-100); Mean Corpuscular Hemoglobin 31.9 pg (27-31); Mean Corpuscular Hgb Conc 31.6 g/dl (32-36); Mean Platelet Volume 8.7 fl (6.0-9.5); Neutrophil % 70.6 % (42-75.0); Platelet Count 280 K/mm3 (150-450); Red Blood Count 3.64 M/mm3 (4.2-5.4); Red Cell Distribution Width 13.3 % (11.5-14.0); White Blood Count 5.6 K/mm3 (4.0-10.5)
[2016-12-23 06:31] LABS: Albumin * 3.2 gm/dl (3.4-5.0); Anion Gap 10.8 mmol/L (6.8-13.8); BUN/Creatinine Ratio 21.1 (9.0-21.6); Bilirubin, Total 0.3 mg/dL (0.0-1.1); Ca. Corrected For Albumin 10.3 mg/dL (8.4-10.2); Carbon Dioxide 29.4 mmol/L (24-32.6); Potassium 4.2 mmol/L (3.4-4.6); Total Protein 6.7 gm/dL (6.2-8.2)
[2016-12-23] MEDS: ACETAMINOPHEN 325 MG TABLET PO PRN (06:52)
[2016-12-23] MEDS: GABAPENTIN 300 MG CAPSULE PO SCH ×2 (06:52→13:16)
[2016-12-23] MEDS ORDERED: LEVOTHYROXINE SODIUM 25 MCG TABLET PO SCH (07:00)
[2016-12-23] MEDS ORDERED: PANTOPRAZOLE SODIUM 20 MG TABLET.DR PO SCH (07:00)
[2016-12-23] MEDS: CALCIUM CARBONATE/VITAMIN D3 1 TAB TABLET PO SCH ×2 (08:52→13:16)
[2016-12-23] MEDS: LIDOCAINE 35 APPL TUBE TP SCH (08:53)
[2016-12-23] MEDS: lamoTRIgine 100 MG TABLET PO SCH (08:53)
[2016-12-23] MEDS: METOPROLOL TARTRATE 25 MG TABLET PO SCH (08:53)
[2016-12-23] MEDS ORDERED: amLODIPine BESYLATE 5 MG TABLET PO SCH (09:00)
[2016-12-23] MEDS ORDERED: FOLIC ACID 1 MG TABLET PO SCH (09:00)
[2016-12-23] MEDS ORDERED: DULoxetine HCL 30 MG CAPSULE.SA PO SCH (09:00)
[2016-12-23] MEDS ORDERED: MULTIVITAMINS 1 CAP CAPSULE PO SCH (09:00)
[2016-12-23] MEDS ORDERED: ASPIRIN 81 MG TAB.CHEW PO SCH (09:00)
[2016-12-23] MEDS ORDERED: CHOLECALCIFEROL 1,000 UNIT CAPSULE PO SCH (09:00)
[2016-12-23] MEDS ORDERED: POLYETHYLENE GLYCOL 3350 119 GM BTL PO SCH (09:00)
[2016-12-23] MEDS ORDERED: VITAMIN E 1000 UNIT PO SCH (09:00)
[2016-12-23] MEDS ORDERED: LOSARTAN POTASSIUM 50 MG TABLET PO SCH (09:00)
[2016-12-23] MEDS: MAGNESIUM OXIDE 400 MG TABLET PO SCH (09:01)
[2016-12-23] MEDS: TROLAMINE SALICYLATE 90 APPL TUBE TP SCH ×2 (09:02→13:06)
[2016-12-23 10:43] VITALS: BP 154/80
--- NOTE | 2016-12-23 11:48 | DS ---
(1) Diabetes mellitus type 2, insulin dependent Problem: Chronic (2) Tennis elbow Problem: Acute Qualifiers: Laterality: right Qualified Code(s): M77.11 - Lateral epicondylitis, right elbow (3) Balance disorder Problem: Chronic (4) Falls frequently Problem: Chronic (5) Altered mental status, unspecified Problem: Resolved Qualifiers: Altered mental status type: unspecified Qualified Code(s): R41.82 - Altered mental status, unspecified (6) Pyelonephritis, acute Problem: Acute (7) COPD (chronic obstructive pulmonary disease) Problem: Chronic Qualifiers: COPD type: chronic bronchitis Chronic bronchitis type: simple Qualified Code(s): J41.0 - Simple chronic bronchitis (8) Hypoglycemia Problem: Acute (9) Right tennis elbow Problem: Acute (10) Osteoarthritis of right knee Problem: Chronic Qualifiers: Osteoarthritis type: primary Qualified Code(s): M17.11 - Unilateral primary osteoarthritis, right knee (11) Osteoporosis Problem: Chronic Description of Stay: Patient is much improved. Diabetes medications decreased. On antibiotics for UTI, culture still pending. Finances markedly limited. Uses a cane at home, is mobile, but because of her weakness and balance issues, the cane is inadequate and requires a walker with two wheels. She needs a two wheeled walker because she is too weak and off balance to lift a walker. A walker will allow her to be safely mobile at home, which she is not now using a cane. Procedures Performed: none Discharge Disposition: Home self care Disposition: Home self-care Condition: Good Discharge Activity: Activity as tolerated Discharge Diet: Consistent carbs Problem Oriented Discharge Instructions to Patient/Family: Pyelonephritis, Adult, [id number], Hypoglycemia, [id number], Delirium, Fall Prevention in the Home, [id number] Additional Patient Instructions (free text): Please schedule for prolia injection in [facility] on discharge. CH new. Please fax orders, face to face and call report upon discharge. Walker with wheels. Followup Dr. Brothers, 1 week. Prescriptions (Any new or edited meds): Wheeled Walker 1 unit .ROUTE DAILY #1 Cephalexin Monohydrate [Keflex] 500 mg PO QID #28 cap Complete Home Medications List: Complete Home Medication List: Aspirin [Aspirin Chewable] 81 mg PO DAILY 02/05/15 DULoxetine HCL [Cymbalta] 60 mg PO DAILY #0 03/06/15 Acetaminophen [Tylenol] 650 mg PO Q4H PRN 04/18/15 Calcium Carb/D3/Magnesium/Zinc [Ryan Mag Zinc + D Tablet] 1 each PO TID 04/18/15 Cholecalciferol [Vitamin D] 1,000 unit PO DAILY 04/18/15 Amlodipine Besylate [Norvasc] 2.5 mg PO DAILY 10/05/16 Bisacodyl [Dulcolax] 10 - 15 mg PO DAILY PRN 10/05/16 Levothyroxine Sodium [Synthroid] 25 mcg PO DAILY 10/05/16 Losartan Potassium [Cozaar] 25 mg PO DAILY 10/05/16 Magnesium 250 mg PO TID 10/05/16 Methotrexate Sodium [Methotrexate] 2.5 mg PO Q7D 10/05/16 Metoprolol Tartrate [Lopressor] 25 mg PO BID 10/05/16 Mirtazapine [Remeron] 15 mg PO HS 10/05/16 Multivitamin [One Daily Essential] 1 each PO DAILY 10/05/16 Omeprazole [Prilosec] 20 mg PO DAILY 10/05/16 Simvastatin [Zocor] 40 mg PO HS 10/05/16 ALPRAZolam [Xanax] 1 mg PO TID PRN 12/22/16 Albuterol Sulfate [Ventolin HFA] 2 puff IH Q6H PRN 12/22/16 Calcium Carbonate [Tums] 500 mg PO TID PRN 12/22/16 Denosumab [Prolia] 60 mg SQ Q180D 12/22/16 Folic Acid 1 mg PO DAILY 12/22/16 Lamotrigine [Lamictal] 100 mg PO BID 12/22/16 Lidocaine [Lc-5] 1 appl TP BID 12/22/16 Polyethylene Glycol 3350 [Miralax] 17 gm PO DAILY 12/22/16 Vitamin E 1,000 unit PO DAILY 12/22/16 Cephalexin Monohydrate [Keflex] 500 mg PO QID #28 cap 12/23/16 Trolamine Salicylate [Aspercreme] 1 appl TP QID tube 12/23/16 Wheeled Walker 1 unit .ROUTE DAILY #1 12/23/16
[2016-12-23] MEDS: ENOXAPARIN SODIUM 40 MG/0.4 ML SYRG SC SCH (13:16)
[2016-12-27] MEDS ORDERED: METHOTREXATE SODIUM 2.5 MG TABLET PO SCH (09:00)
== END 2016-12-23 14:43 | disposition home health service (06) ==
LOC: ER 08:32 → MS 10:45
PROVIDERS: ADMIT Allergy & Immunology; ATTEND Allergy & Immunology
DX: N10 Acute pyelonephritis (principal); E11.649 Type 2 diabetes mellitus with hypoglycemia without coma; R41.82 Altered mental status, unspecified; M77.11 Lateral epicondylitis, right elbow; J44.9 Chronic obstructive pulmonary disease, unspecified; Z87.891 Personal history of nicotine dependence; M17.11 Unilateral primary osteoarthritis, right knee; M81.0 Age-related osteoporosis without current pathological fracture; M79.661 Pain in right lower leg
CPT/HCPCS: 36415; 70450; 71010; 80053; 81001; 83605; 85025; 87040; 87086; 93971; 96365; 96372; 97110; 97116; 97161; 97530; 99284; G0378; G8978; G8979; G8980

== ENCOUNTER 2017-03-05 19:10 | Inpatient (IN) | payer MEDICARE, MEDICAID ==
[2017-03-05] MEDS ORDERED: NORMAL SALINE 1,000 ML IV ONE (19:20)
--- OUTSIDE RECORDS SUMMARY | 2017-03-05 19:46 | XMS REPORT | Continuity of Care Document ---
:1945 Author Organization [facility] ([facility]) Address [address] [place] [address] Phone [phone] Care Team Providers Name Role Phone Michael Brothers Primary Care Provider [phone] Source Comments This disclosure is being made pursuant to the Care Everywhere program, applicable federal and state laws, and may not contain all informaitonavailable regarding this patient.[facility] ([facility]) Active Allergies and Adverse Reactions Allergen Noted [...] mg by Active tablet mouth at bedtime. folic acid 1 mg Take 1 tablet [...] by Active mcg tablet mouth daily. Synthroid methotrexate 2.5 Take 6 tablets (15 24 tablet 2 Active mg tablet mg total) by mouth 7 every week. nitrofurantoin Take 1 capsule 10 capsule 0 Active (MACROBID) 100 mg (100 mg total) by 7 capsule mouth 2 times daily. methotrexate 2.5 Take 6 tablets (15 24 tablet 1 02/07/20 Discontinued mg tablet mg total) by mouth 6 17 every week. Active Problems Problem Noted Date Osteoporosis 06/17/2015 Compression fracture of Thoracic spine T11 02/24/2015 Back pain 02/24/2015 Seizure disorder 02/24/2015 Temporal arteritis 02/24/2015 Drug-induced hyperglycemia 02/24/2015 Acute, but ill-defined, cerebrovascular disease 02/01/2008 Most Recent Encounters Date Type Specialty Providers Description 02/16/2017 Telephone Med Rheumatology Natacha Ennis, Chief Comp: Other 02/06/2017 Office Visit Pathology Natacha Ennis, Chief Comp: Patient Reported Reason For Lab Services, Pfp Visit 02/06/2017 Office Visit Med Rheumatology Natacha Ennis, Dx: GCA ( giant cell MD arteritis) (Primary Dx) 02/06/2017 Refill Med Rheumatology Natacha Ennis, Dx: GCA (giant cell MD arteritis) (Primary Dx) 12/20/2016 Telephone Med Endocrinology Kendy Esaclante MD 12/14/2016 Office Visit Pathology Kendy Escalante Chief Comp: Patient MD Guillermo Reported Reason For Lab Services, Pfp Visit 12/14/2016 Office Visit Med Endocrinology Kendy Escalante Dx: Osteoporosis MD Guillermo (Primary Dx) Social History Tobacco Use Types Packs/Day Years Used Date Former Smoker Cigarettes 1.5 Quit: 02/20/1994 Smokeless Tobacco: Never Used Tobacco Cessation:Counseling Given: Yes Comments:Quit in 1979 Alcohol Use Drinks/Week oz/Week Comments No 0 Standard drinks or equivalent 0.0 Last Filed Vital Signs Vital Sign Reading Time Taken Blood Pressure 126/69 02/06/2017 11:24 AM CDT Pulse 76 02/06/2017 11:24 AM CDT Temperature 36.9 C (98.4 F) 02/06/2017 11:24 AM CDT Respiratory Rate 20 04/13/2015 12:15 PM CDT Height 1.626 m (5' 4.02") 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 Weight 82.5 kg (181 lb 14.1 oz) 02/06/2017 11:24 AM CDT Body Mass Index 31.2 02/06/2017 11:24 AM CDT Oxygen Saturation 98% 04/13/2015 12:15 PM CDT Plan of Care Date Type Specialty Providers Description 08/21/2017 Appointment Med Rheumatology Natacha Ennis, Chief Comp: Patient Reported Reason For [address] [place] [address] [phone] (Fax) 12/20/2017 Appointment [facility] Default, Other [facility] - [facility] [address] [place] [address] [phone] (Fax) Chief Comp: Patient Krystina Barcenas MD [address] [place] [address] [phone] (Fax) Reported Reason For Visit 12/20/2017 Appointment Med Endocrinology Kendy Escalante Chief Comp: Patient MD Guillermo Reported Reason For [address] [place] [address] [phone] (Fax) Health Maintenance Due Date Last Done [...] A1C 08/27/2015 02/25/2015, 02/02/2008 Influenza Vaccine: Seasonal (Season Ended) 2017 Osteoporosis Screening (DXA Bone Density) Completed 06/24/2015 Results from Last 3 Months DIFFERENTIAL (02/06/2017 12:27 PM) Component Value Range % Neutrophils-Auto Diff 50.3 % Neutrophils-Auto Diff 4520 0846-6979 /MM3 % Lymphocytes-Auto Diff 21.7 % Lymphocytes-Auto Diff 5985 655-5563 /MM3 % Monocytes-Auto Diff 7.3 % Monocytes-Auto Diff 660 130-860 /MM3 % Eosinophils-Auto Diff 20.2 % Eosinophils-Auto Diff 1820(H) 40-390 /MM3 % Basophils 0.2 % Basophils-Auto Diff 20 10-136 /MM3 % Immature Granulocytes-Auto Diff 0.3 % Immature Granulocytes-Auto Diff 30 /MM3 Specimen Whole Blood CBC (COMPLETE BLOOD COUNT) (02/06/2017 12:27 PM) Component Value Range WBC Count 9.0 3.7-10.5 K/MM3 RBC Count 3.83(L) 4.00-5.20 M/MM3 Hemoglobin 12.2 11.9-15.5 g/dL Hematocrit 38 35-47 % MCV (Mean Corpuscular Volume) 98 82-99 FL MCH (Mean Corpuscular Hemoglobin) 32 25-35 PG MCHC (Mean Corpuscular Hemoglobin Concentration) 32 32-36 % Platelet Count 347 150-400 K/MM3 MPV (Mean Platelet Volume) 8.6(L) 9.4-12.3 FL RBC Dist Width-STD 52.0(H) 36.4-46.3 FL RBC Distrib Width 14.7(H) 9.0-14.5 % Nucleated RBC 0 /100 WBC Specimen Whole Blood C-REACTIVE PROTEIN (02/06/2017 12:27 PM) Component Value Range CRP (C-Reactive Protein) <0.5 <=0.5 mg/dL Specimen Blood ERYTHROCYTE SEDIMENTATION RATE (02/06/2017 12:27 PM) Component Value Range ESR (Erythrocyte Sedimentation Rate) 35(H) 0-20 mm/Hr Specimen Whole Blood ALBUMIN (02/06/2017 12:27 PM) Component Value Range Albumin 4.2 3.4-4.8 g/dL Specimen Blood ASPARTATE AMINOTRANSFERASE (02/06/2017 12:27 PM) Component Value Range AST 21Comment: 0-32 U/L Adult reference ranges updated on 08/20/13 at 830am Specimen Blood ALANINE AMINOTRANSFERASE (02/06/2017 12:27 PM) Component Value Range ALT 19Comment: 0-33 U/L The upper limit of normal for alanine aminotransferase (ALT) reference ranges for adults is controversial with some authorities recommending limit as low as 30 U/L for males and 19 U/L for females. Th ere is increased incidence of subclinical liver disease (e.g., early steatohepatitis) in patients with ALT values in the range of 31-41 U/L for males and 20-33 U/L for females. ALT values should alway s be interpreted in conjunction with clinical history, physical examination findings, and, if applicable, data from other diagnostic tests. Specimen Blood CREATININE (02/06/2017 12:27 PM)Only the most recent of2 resultswithin the time period is included. Component Value Range Creatinine 0.9Comment: 0.5-1.0 mg/dL Creatinine switched to enzymatic method on 02/01/2011.GFR equation switched to IDMS-traceable MDRD equation on 02/01/2011. Calculated GFR values are not valid in clinical settings where serum creatinine is changing. Calculated GFR 61 >60 mL/min/1.73 m2 Specimen Blood CBC WITH DIFFERENTIAL (02/06/2017 12:27 PM) Specimen Whole Blood Narrative The following orders were created for panel order CBC WITH DIFFERENTIAL. Procedure Abnormality Status --------- ------ CBC (COMPLETE BLOOD COUNT)[[id number]] AbnormalFinal result DIFFERENTIAL[[id number]] AbnormalFinal result Please view results for these tests on the individual orders. URINE MICROSCOPIC (02/06/2017 12:16 PM) Component Value Range White Blood Cells, Urine >180(H) 0-5 /HPF Red Blood Cells, Urine 8(H) 0-2 /HPF Bacteria, Urine Many(A) /HPF Squamous Epithelial Cells, Urine 107(H) <=10 /LPF Mucous-Urine Moderate(A) None, Rare WBC Clumps-Urine Present(A) /HPF Specimen Urine URINALYSIS (02/06/2017 12:16 PM) Component Value Range Color, Urine Yellow Straw, Pale Yellow, Yellow, Clear, None Clarity, Urine Cloudy(A) Clear pH, Urine 5.0 <9.0 Glucose, Urine Negative Negative Blood, Urine Negative Negative Ketones, Urine Negative Negative Protein, Urine 1+(A) Negative Urobilinogen, Urine Normal Normal Bilirubin, Urine Negative Negative Leukocyte Esterase, Urine 3+(A) Negative Nitrite, Urine Positive(A) Negative Spec Williams, Urine 1.020 1.000-1.030 Specimen Urine URINE CULTURE, ROUTINE AEROBIC (02/06/2017 12:16 PM) Component Value Range Quantitative Culture >100,000 CFU/mL Escherichia coli(A)Comment: Quantitative Culture 10,000-100,000 CFU/mL Klebsiella pneumoniae(A) Specimen Culture - Urine, Midstream clean catch Narrative Identification performed by MALDI-TOF mass spectrometry (MS).The performance characteristics of MALDI-TOF MS were determined by the [facility].It has not been cleared orApproved by the FDA. The FDA has determined that such clearance or approval is not necessary.This test is for clinical purposes. It should not be regarded as investigational or for research.The laboratory is certified under the Clinical Laboratory Improvement Amendments of 1988 (CLIA) as qualified to perform high complexity clinical laboratory testing. Organism Antibiotic Method Susceptibility Escherichia coli AMPICILLIN <=2: Susceptible Escherichia coli CEFTRIAXONE <=1: Susceptible Escherichia coli CIPROFLOXACIN <=0.25: Susceptible Escherichia coli GENTAMICIN <=1: Susceptible Escherichia coli NITROFURANTOIN <=16: Susceptible Escherichia coli PIPERACILLIN/TAZOBACTAM <=4: Susceptible Escherichia coli TRIMETHOPRIM/SULFA <=1: Susceptible Escherichia coli CEFAZOLIN <=4: Susceptible VITAMIN D, 25-HYDROXY (12/14/2016 2:15 PM) Component Value Range Vitamin D, 25-OH 32Comment: 20-80 ng/mL This assay accurately quantifies the sum of 25-hydroxyvitamin D3 and 25- hydroxyvitamin D2. Endocrine Society, [place] of [employer] (IOM), and World Health Organization [...] concentrations greater than 150 ng/mL. Specimen Blood CALCIUM (12/14/2016 2:15 PM) Component Value Range Calcium 9.5 8.5-10.5 mg/dL Specimen Blood
[2017-03-05 19:52] LABS: Hematocrit 32.4 % (37.0-47.0); Hemoglobin 10.6 gm/dL (12.5-16.0); Mean Cell Volume 97.9 fl (78-100); Mean Corpuscular Hgb Conc 32.7 g/dl (32-36); Mean Platelet Volume 8.7 fl (6.0-9.5); Neutrophil % 71.4 % (42-75.0); Platelet Count 238 K/mm3 (150-450); Red Blood Count 3.31 M/mm3 (4.2-5.4); Red Cell Distribution Width 14.5 % (11.5-14.0)
[2017-03-05 20:00] LABS: Urine Appearance Cloudy; Urine Bacteria 3+; Urine Bilirubin Negative (NEGATIVE); Urine Blood 50 /ul (NEGATIVE); Urine Color Pale Yellow; Urine Ketone Negative (NEGATIVE); Urine Nitrite Positive (NEGATIVE); Urine Protein 30 mg/dL (NEGATIVE); Urine RBC 0-5 /hpf (0-5); Urine Specific Gravity 1.015 SP.GR. (1.005-1.010); Urine Urobilinogen Normal (NORMAL); Urine WBC >50 /hpf (0-5); Urine pH 7.5 pH (5.0-7.0)
--- NOTE | 2017-03-05 20:01 | ERNOTE ---
Back Pain ER HPI Date of Service: 03/05/17 Presenting Symptoms: other - CONFUSED Time Seen by Provider: 03/05/17 19:34 Source: patient, family Exam Limitations: no limitations Immunizations: IMMUNIZATION HX Immunizations Up to Date Yes History of Influenza Vaccine No Hx Pneumococcal Vaccination Yes Allergies/Adverse Reactions: Allergies ciprofloxacin Allergy (Intermediate, Verified 03/05/17 19:20) BRONCHOSPASM codeine [Codeine] Adverse Reaction (Mild, Verified 03/05/17 19:20) ABD PAIN codeine phosphate [From Codeine Phosphate Soluble] Adverse Reaction (Mild, Verified 03/05/17 19:20) ABD PAIN Home Medications: HOME MEDICATIONS Acetaminophen 650 mg PO Q6H 03/05/17 [Last Taken Unknown] Amlodipine Besylate [Norvasc] 2.5 mg PO DAILY 03/05/17 [Last Taken Unknown] Aspirin [Aspirin EC] 81 mg PO DAILY 03/05/17 [Last Taken Unknown] Bisacodyl [Dulcolax] 5 mg PO DAILY 03/05/17 [Last Taken Unknown] Calcium Carbonate 600 mg PO DAILY 03/05/17 [Last Taken Unknown] Calcium Carbonate [Antacid Extra Strength] 750 mg PO BID 03/05/17 [Last Taken Unknown] Clotrimazole/Betamethasone Dip [Clotrimazole-Betamethasone Crm] 1 appl TP BID [Last Taken Unknown] Folic Acid 1 mg PO DAILY 03/05/17 [Last Taken Unknown] Ibuprofen 200 mg PO Q6H 03/05/17 [Last Taken Unknown] Lamotrigine [Lamictal] 100 mg PO BID 03/05/17 [Last Taken Unknown] Losartan Potassium [Cozaar] 25 mg PO DAILY 03/05/17 [Last Taken Unknown] Magnesium 250 mg PO TID 03/05/17 [Last Taken Unknown] Methotrexate Sodium [Methotrexate] 3 tab PO Q7D 03/05/17 [Last Taken Unknown] Multivitamin [One Daily Multivitamin] 1 each PO DAILY 03/05/17 [Last Taken Unknown] Trolamine Salicylate [Aspercreme] 1 appl TP QID 03/05/17 [Last Taken Unknown] Narrative: 71-year-old female presents to emergency room for increased confusion at home. Patient is alert to person and place but she does fall asleep during interview. States the patient was taken off of her Seroquel 2 days ago and started on Risperdal today. Also see this patient has had a hard time getting around at home as been stumbling and confused. Date (Duration): 03/05/17 Review of Systems - Review of Systems Constitutional: Present: See HPI, weakness, fatigue, decreased activity level. Absent: fever EYE: Present: no symptoms reported ENT: Present: no symptoms reported Respiratory: Present: no symptoms reported Cardiology: Present: no symptoms reported Gastrointestinal/Abdominal: Present: no symptoms reported Genitourinary: Present: no symptoms reported Musculoskeletal: Present: no symptoms reported Skin: Present: no symptoms reported Neurological: Present: See HPI, weakness Endocrine: Present: no symptoms reported Hematologic/Lymphatic: Present: no symptoms reported Psych: Present: no symptoms reported All Other Systems: All systems neg except as marked - Patient's Past Medical History Patient History - Medical: Anxiety, Arthritis, Cataracts, Chronic Pain, Diabetes Type 2, Depression, GERD, Headache, Hypothyroidism, Osteoporosis, UTI'S , Other Patient History - Cardiac/Respiratory: No pertinent hx, Hypertension, Hyperlipidemia Patient History - Cancer: No Hx of Cancer Patient History - Surgical Procedures: Back Surgery, Cataracts, Cholecystectomy , Colonoscopy, Other Patient History - Other: None - Family History Mother Family History - Medical: Family History - Cardiac/Respiratory: CHF, Myocardial Infarction Brother Family History - Medical: - Social History Living Situations: other Abuse History: No History of abuse Psych History: Hx of Anxiety, Hx of Depression Smoking Status: Former smoker Alcohol Use: none Drug Use: none - Immunizations Immunizations Up to Date: Yes Hx Pneumococcal Vaccination: Yes History of Influenza Vaccine: No Physical Exam - Physical Exam Narrative: Patient appears dehydrated, patient unable to answer questions, she does fall asleep during interview. Patient is confused. General Appearance: Present: wd/wn Eye Exam: Normal inspection: bilateral Ears, Nose, Throat: Present: normal ENT inspection Neck: Present: normal inspection Respiratory: Present: no respiratory distress, no accessory muscle use, decreased breath sounds Cardiovascular/Chest: Present: regular rate, rhythm, no murmur, normal peripheral pulses Gastrointestinal/Abdominal: Present: normal bowel sounds, soft Back Exam: Present: vertebral tenderness, decreased range of motion - OLD BACK INJURY Extremity Exam: Present: normal inspection, decreased range of motion Neurological Exam: Present: alert, disoriented to time, disoriented to place, disoriented to situation Skin Exam: Present: normal color, warm/dry Lymphatic Exam: Present: no adenopathy ED Progress - Results and Orders Patient's Lab Results:: I have reviewed the patient's lab results. Results and Orders: UTI + - Vital Signs Vital Signs: Vital Signs 03/05/17 03/05/17 03/05/17 19:15 19:34 19:45 Temperature 37.1 C 37.0 C Pulse Rate 85 82 83 Respiratory 18 24 H 18 Rate Blood Pressure 105/65 87/66 99/66 O2 Sat by Pulse 95 96 98 Oximetry - CT/Ultrasound CT/Ultrasound Narrative: head CT negative - Progress/Reassessment Chief Complaint: Back Pain Progress:: Unchanged Plan - Plan Plan: admit to the floor for further tx Departure Clinical Impression: UTI (urinary tract infection) Qualifiers: Urinary tract infection type: site unspecified Hematuria presence: with hematuria Qualified Code(s): N39.0 - Urinary tract infection, site not specified ; R31.9 - Hematuria, unspecified - Departure Disposition: [facility] Condition: Fair
[2017-03-05 20:02] LABS: INR 0.96 INR (0.90-1.10)
[2017-03-05 20:04] LABS: Albumin * 3.2 gm/dl (3.4-5.0); Anion Gap 13.4 mmol/L (6.8-13.8); BUN/Creatinine Ratio 22.4 (9.0-21.6); Bilirubin, Total 0.2 mg/dL (0.0-1.1); Ca. Corrected For Albumin 8.9 mg/dL (8.4-10.2); Calcium * 8.6 mg/dL (7.9-10.9); Carbon Dioxide 25.6 mmol/L (24-32.6); Total Protein 6.7 gm/dL (6.2-8.2)
[2017-03-05 20:16] LABS: Cocaine Ur Negative (NEGATIVE); Urine Barbiturate Negative (NEGATIVE); Urine Opiates Negative (NEGATIVE); Urine PCP Negative (NEGATIVE); Urine THC Negative (NEGATIVE)
[2017-03-05 20:17] LABS: Urine Benzodiazepines Positive (NEGATIVE)
--- OUTSIDE RECORDS SUMMARY | 2017-03-05 20:59 | XMS REPORT | Continuity of Care Document ---
:1945 Author Organization [facility] ([facility]) Address [address] [place] [address] Phone [phone] Care Team Providers Name Role Phone Michael Brothers Primary Care Provider [phone] Source Comments This disclosure is being made pursuant to the Care Everywhere program, applicable federal and state laws, and may not contain all informaitonavailable regarding this patient.[facility] ([facility]) Active Allergies and Adverse Reactions Allergen [...] (Primary Dx) 12/20/2016 Telephone Med Endocrinology Kendy Escalante MD [...] 1.626 m (5' 4.02") 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 Weight 82.5 kg (181 lb 14.1 oz) 02/06/2017 11:24 AM CDT Body Mass Index 31.2 02/06/2017 11:24 AM CDT Oxygen Saturation 98% 04/13/2015 12:15 PM CDT Plan of Care Date Type Specialty Providers Description 08/21/2017 Appointment Med Rheumatology Natacha Ennis, Chief Comp: Patient Reported Reason For [address] [place] [address] [phone] (Fax) 12/20/2017 Appointment [facility] Default, Other [facility] - [facility] [address] [place] [address] [phone] (Fax) Chief Comp: Patient Krystina Barcenas MD [address] [place] [address] [phone] (Fax) Reported Reason For Visit 12/20/2017 Appointment Med Endocrinology Kendy Escalante Chief Comp: Patient MD Guillermo Reported Reason For [address] [place] [address] [phone] (Fax) Health Maintenance Due Date Last Done [...] Neutrophils-Auto Diff 50.3 % Neutrophils-Auto Diff 4520 [id number] /MM3 % Lymphocytes-Auto Diff 21.7 % Lymphocytes-Auto Diff 0366 493-8362 /MM3 % Monocytes-Auto Diff 7.3 % Monocytes-Auto [...] Abnormality Status --------- ------ CBC (COMPLETE BLOOD COUNT)[[id number]] AbnormalFinal result DIFFERENTIAL[[id number]] AbnormalFinal result Please view results for these [...] 3+(A) Negative Nitrite, Urine Positive(A) Negative Spec [place], Urine 1.020 1.000-1.030 Specimen Urine URINE CULTURE, ROUTINE AEROBIC (02/06/2017 12:16 PM) Component Value Range Quantitative Culture >100,000 CFU/mL Escherichia coli(A)Comment: Quantitative Culture 10,000-100,000 CFU/mL Klebsiella pneumoniae(A) Specimen Culture - Urine, Midstream clean catch Narrative Identification performed by MALDI-TOF mass spectrometry (MS).The performance characteristics of MALDI-TOF MS were determined by the [email or web address].It has not been cleared orApproved by [...] D3 and 25- hydroxyvitamin D2. Endocrine Society, [place] of Medicine (IOM), and World Health Organization [...]
[2017-03-05] MEDS ORDERED: ENOXAPARIN SODIUM 40 MG/0.4 ML SYRG SC SCH (22:00)
[2017-03-05] MEDS ORDERED: HALOPERIDOL LACTATE 5 MG/ML VIAL IM PRN (22:18)
[2017-03-05] MEDS: DEXTROSE 5%-LACTATED RINGERS 1,000 ML IV PRN (22:34)
[2017-03-05] MEDS: CIPROFLOXACIN HCL 25 DROP BTL RIGHTEYE SCH (22:35)
--- NOTE | 2017-03-05 22:38 | HP ---
<Nayana Day - Last Filed: 03/06/17 03:18> Chief Complaint - Chief Complaint Date of Service: 03/05/17 Time of Service: 21:55 Chief Complaint: confusion, UTI History of Present Illness: Janelle is a 71 year old female patient of Dr Brothers with a PMH of DM, recurrent UTIs, HTN, HLD, anxiety, depression, bipolar, and GERD who presented to the ER with confusion and lethargy. There was some confusion regarding change in medications done by psychiatry. Daughter (POGuillermo) was giving her xanax 1 mg tid but psychiatry changed this to 2 mg with supper. In the confusion, it appears that the daughter may have been giving her 2 mg tid. In addition, psychiatry's note indicates that patient was to stop naltrexone and topamax and am not entirely sure this has been done. ER evaluation revealed UTI with hypotension, although lactic acid was wnl. patient was started on IV fluids and given one dose of rocephin 1 gm iv. Patient will be admitted with UTI and confusion. - Patient's Past Medical History Patient History - Medical: Anxiety, Arthritis, Cataracts, Chronic Pain, Diabetes Type 2, Depression, GERD, Headache, Hypothyroidism, Osteoporosis, UTI'S , Other Patient History - Cardiac/Respiratory: No pertinent hx, Hypertension, Hyperlipidemia Patient History - Cancer: No Hx of Cancer Patient History - Surgical Procedures: Back Surgery, Cataracts, Cholecystectomy , Colonoscopy, Other Patient History - Other: None - Family History Mother Family History - Medical: Family History - Cardiac/Respiratory: CHF, Myocardial Infarction Brother Family History - Medical: - Social History Living Situations: other Abuse History: No History of abuse Psych History: Hx of Anxiety, Hx of Depression Smoking Status: Former smoker Have you smoked in the past 12 months: No - quit 30 years ago Do you dip or chew tobacco: No Alcohol Use: none Drug Use: none - Immunizations Immunizations Up to Date: Yes Hx Pneumococcal Vaccination: Yes History of Influenza Vaccine: No Review Of Systems (GEN) - Review of Systems Generalized/Overall Review: Present: No Symptoms Reported - unable to obtain ROS due to patient's condition Immunizations: IMMUNIZATION HX Immunizations Up to Date Yes History of Influenza Vaccine No Hx Pneumococcal Vaccination Yes Allergies/Adverse Reactions: Allergies Allergy/AdvReac Type Severity Reaction Status Date / Time ciprofloxacin Allergy Intermediate BRONCHOSPAS Verified 03/05/17 19:20 M codeine [Codeine] AdvReac Mild ABD PAIN Verified 03/05/17 19:20 codeine phosphate AdvReac Mild ABD PAIN Verified 03/05/17 19:20 [From Codeine Phosphate Soluble] Home Medications: HOME MEDICATIONS ALPRAZolam [Xanax] 2 mg PO TID PRN 03/05/17 [Last Taken Unknown] Acetaminophen 650 mg PO Q6H 03/05/17 [Last Taken Unknown] Albuterol Sulfate [Ventolin HFA] 2 puff IH Q6H 03/05/17 [Last Taken Unknown] Amlodipine Besylate [Norvasc] 2.5 mg PO DAILY 03/05/17 [Last Taken Unknown] Aspirin [Aspirin EC] 81 mg PO DAILY 03/05/17 [Last Taken Unknown] Bisacodyl [Dulcolax] 5 mg PO DAILY 03/05/17 [Last Taken Unknown] Calcium Carbonate 600 mg PO DAILY 03/05/17 [Last Taken Unknown] Calcium Carbonate [Antacid Extra Strength] 750 mg PO BID 03/05/17 [Last Taken Unknown] Cetirizine HCl [Zyrtec] 10 mg PO DAILY 03/05/17 [Last Taken Unknown] Cholecalciferol (Vitamin D3) [Vitamin D3] 1,000 unit PO DAILY 03/05/17 [Last Taken Unknown] Clotrimazole/Betamethasone Dip [Clotrimazole-Betamethasone Crm] 1 appl TP BID [Last Taken Unknown] Denosumab [Prolia] 60 mg SQ Q6M 03/05/17 [Last Taken Unknown] Folic Acid 1 mg PO DAILY 03/05/17 [Last Taken Unknown] Ibuprofen 200 mg PO Q6H 03/05/17 [Last Taken Unknown] Lamotrigine [Lamictal] 100 mg PO DAILY 03/05/17 [Last Taken Unknown] Levothyroxine Sodium [Synthroid] 25 mcg PO DAILY 03/05/17 [Last Taken Unknown] Losartan Potassium [Cozaar] 25 mg PO DAILY 03/05/17 [Last Taken Unknown] Magnesium 250 mg PO TID 03/05/17 [Last Taken Unknown] Methotrexate Sodium [Methotrexate] 3 tab PO Q7D 03/05/17 [Last Taken Unknown] Metoprolol Tartrate [Lopressor] 25 mg PO BID 03/05/17 [Last Taken Unknown] Multivitamin [One Daily Multivitamin] 1 each PO DAILY 03/05/17 [Last Taken Unknown] Naltrexone HCl [ReVia] 50 mg PO DAILY 03/05/17 [Last Taken Unknown] Omeprazole 20 mg PO DAILY 03/05/17 [Last Taken Unknown] Oxybutynin Chloride [Ditropan Xl] 5 mg PO HS 03/05/17 [Last Taken Unknown] Polyethylene Glycol 3350 [Miralax] 17 gm PO DAILY 03/05/17 [Last Taken Unknown] QUEtiapine FUMARATE [Seroquel] 25 mg PO HS 03/05/17 [Last Taken Unknown] Simvastatin [Zocor] 40 mg PO HS 03/05/17 [Last Taken Unknown] Topiramate [Topamax] 25 mg PO HS 03/05/17 [Last Taken Unknown] Trolamine Salicylate [Aspercreme] 1 appl TP QID 03/05/17 [Last Taken Unknown] Vitamin E 1,000 unit PO DAILY 03/05/17 [Last Taken Unknown] risperiDONE [Risperdal] 4 mg PO HS 03/05/17 [Last Taken Unknown] Exam - Exam Vital Signs: Vital Signs - Last Taken Temp 37.4 C 03/05/17 21:31 Pulse 88 03/05/17 21:31 Resp 24 H 03/05/17 21:31 BP 111/64 03/05/17 21:31 Pulse Ox 92 03/05/17 21:31 Constitutional: Present: No distress, Lethargic, Somnolent, Elderly Eye Exam: bilateral eye: PERRL, right eye: other - purulent drainage from right eye Neck: Present: supple Respiratory: Present: chest non-tender, lungs clear, normal breath sounds, no respiratory distress Cardiovascular/Chest: Present: normal peripheral pulses, regular rate, rhythm, no chest tenderness Peripheral Pulses: dorsalis-pedis (R): 2+, dorsalis-pedis (L): 2+, radial (R): 2 +, radial (L): 2+ Abdomen: Present: Normal bowel sounds, soft, nontender, nondistended /Rectal: Present: Exam deferred Extremity: Present: non-tender, no pedal edema Skin Exam: Present: warm/dry, no cyanosis, pallor Diagnostic Studies: Laboratory Results WBC 7.0 K/mm3 (4.0-10.5) 03/05/17 19:25 RBC 3.31 M/mm3 (4.2-5.4) L 03/05/17 19:25 Hgb 10.6 gm/dL (12.5-16.0) L 03/05/17 19:25 Hct 32.4 % (37.0-47.0) L 03/05/17 19:25 MCV 97.9 fl (78-100) 03/05/17 19:25 MCH 32.0 pg (27-31) H 03/05/17 19:25 MCHC 32.7 g/dl (32-36) 03/05/17 19:25 RDW 14.5 % (11.5-14.0) H 03/05/17 19:25 Plt Count 238 K/mm3 (150-450) 03/05/17 19:25 MPV 8.7 fl (6.0-9.5) 03/05/17 19:25 Immature Gran % (Auto) 0.60 % (0.001-0.429) H 03/05/17 19:25 Immature Gran # (Auto) 0.04 K/mm3 (0.000-0.0310) H 03/05/17 19:25 Neutrophils % 71.4 % (42-75.0) 03/05/17 19:25 Lymphocytes % 16.8 % (20-51) L 03/05/17 19:25 Monocytes % 8.2 % (0.0-9) 03/05/17 19:25 Eosinophils % 2.6 % (0.0-3.0) 03/05/17 19:25 Basophils % 0.4 % (0.0-1.0) 03/05/17 19:25 Nucleated RBC % 0.0 k/mm3 (0-1) 03/05/17 19:25 Neutrophils # 5.0 K/mm3 (1.3-6.0) 03/05/17 19:25 Lymphocytes # 1.2 k/mm3 (1.5-3.5) L 03/05/17 19:25 Monocytes # 0.6 k/mm3 (0.0-1.0) 03/05/17 19:25 Eosinophils # 0.2 k/mm3 (0.0-0.7) 03/05/17 19:25 Absolute Basophils 0.0 k/mm3 (0.0-0.1) 03/05/17 19:25 PT 10.0 Seconds (9.4-11.4) 03/05/17 19:25 INR (Anticoag Therapy) 0.96 INR (0.90-1.10) 03/05/17 19:25 pCO2 33.7 mmHg (32.0-45.0) 03/05/17 19:40 pO2 66.8 mmHg (83.0-108.0) L 03/05/17 19:40 HCO3 20.3 mmol/L (21.0-28.0) L 03/05/17 19:40 Total CO2 21.3 mmol/L (19.0-24.0) 03/05/17 19:40 Base Excess -3.6 mmol/L (-2.0-3.0) L 03/05/17 19:40 ABG pH 7.40 (7.35-7.45) 03/05/17 19:40 ABG O2 Sat (Measured) 93.5 % (94.0-98.0) L 03/05/17 19:40 Sodium 142 mmol/L (132-142) 03/05/17 19:25 Plasma Sodium 142 mmol/L (130-142) 03/05/17 19:25 Potassium 4.0 mmol/L (3.4-4.6) 03/05/17 19:25 Chloride 107 mmol/L (97-106) H 03/05/17 19:25 Carbon Dioxide 25.6 mmol/L (24-32.6) 03/05/17 19:25 Anion Gap 13.4 mmol/L (6.8-13.8) 03/05/17 19:25 BUN 24 mg/dL (3-23) H 03/05/17 19:25 Creatinine 1.07 mg/dL (0.4-1.4) 03/05/17 19:25 Est GFR (Non-Af Amer) 53 mL/min (60-130) L 03/05/17 19:25 BUN/Creatinine Ratio 22.4 (9.0-21.6) H 03/05/17 19:25 Random Glucose 118 mg/dL (70-110) H 03/05/17 19:25 Lactic Acid, Venous 1.0 mmol/L (0.4-1.9) 03/05/17 19:25 Calcium 8.6 mg/dL (7.9-10.9) 03/05/17 19:25 Calcium Adj for Albumin 8.9 mg/dL (8.4-10.2) 03/05/17 19:25 Total Bilirubin 0.2 mg/dL (0.0-1.1) 03/05/17 19:25 AST 18 U/L (0-48) 03/05/17 19:25 ALT 26 U/L (19-67) 03/05/17 19:25 Alkaline Phosphatase 93 U/L (50-170) 03/05/17 19:25 Total Protein 6.7 gm/dL (6.2-8.2) 03/05/17 19:25 Albumin 3.2 gm/dl (3.4-5.0) L 03/05/17 19:25 Procalcitonin Less than 0.05 ng/mL (0.05-0.50) L 03/05/17 19:25 Urine Color Pale yellow 03/05/17 19:25 Urine Appearance Cloudy 03/05/17 19:25 Urine pH 7.5 pH (5.0-7.0) 03/05/17 19:25 Ur Specific [place] 1.015 SP.GR. (1.005-1.010) 03/05/17 19:25 Urine Protein 30 mg/dL (NEGATIVE) H 03/05/17 19:25 Urine Glucose (UA) Negative mg/dL (NEGATIVE) 03/05/17 19:25 Urine Ketones Negative mg/dL (NEGATIVE) 03/05/17 19:25 Urine Blood 50 /ul (NEGATIVE) H 03/05/17 19:25 Urine Nitrate Positive (NEGATIVE) H 03/05/17 19:25 Urine Bilirubin Negative mg/dl (NEGATIVE) 03/05/17 19:25 Prot Sulfosalicylic Acd 1+ mg/dL (0) 03/05/17 19:25 Urine Urobilinogen Normal EU/dl (NORMAL) 03/05/17 19:25 Ur Leukocyte Esterase 500 /ul (NEGATIVE) H 03/05/17 19:25 Urine RBC 0-5 /hpf (0-5) 03/05/17 19:25 Urine WBC >50 /hpf (0-5) H 03/05/17 19:25 Ur Epithelial Cells 0-5 /hpf (0-5) 03/05/17 19:25 Urine Bacteria 3+ (NONE) H 03/05/17 19:25 Urine Culture Comments Culture to follow 03/05/17 19:25 Urine Opiates Screen Negative (NEGATIVE) 03/05/17 19:25 Barbiturate Screen Negative (NEGATIVE) 03/05/17 19:25 Ur Phencyclidine Scrn Negative (NEGATIVE) 03/05/17 19:25 Urine Amphetamine Negative (NEGATIVE) 03/05/17 19:25 U Benzodiazepines Scrn Positive (NEGATIVE) H 03/05/17 19:25 Urine Cocaine Screen Negative (NEGATIVE) 03/05/17 19:25 Urine Marijuana (THC) Negative (NEGATIVE) 03/05/17 19:25 Assessment/Plan - Narrative Narrative: Altered Mental status - likely multi-factorial including UTI and medication induced. - supportive measure - abx for uti. UTI - history of recurrent UTIs - urology following outpt - rocephin 1 gm iv daily - day #1 - urine culture pending. - iv fluids for rehydration due to poor oral intake depression/anxiety - per psychiatry note, correct meds should be - lamictal 100 mg daily - risperdal 4 mg daily - xanax 2 mg at supper - synthroid 25 mcg daily - Stop naltrexone - Stop seroquel - Stop topamax HTN - vital signs q 4 hours Code status: full code with restrictions VTE: lovenox GI proph: omeprazole - Assessment/Plan (1) Altered mental status Problem: Acute QualifierTitle: Altered mental status type: unspecified Qualified Code(s) : R41.82 - Altered mental status, unspecified (2) UTI (urinary tract infection) Problem: Acute QualifierTitle: Urinary tract infection type: acute cystitis Hematuria presence: with hematuria Qualified Code(s): N30.01 - Acute cystitis with hematuria (3) Diabetes Problem: Chronic QualifierTitle: Diabetes mellitus type: type 2 Diabetes mellitus complication status: with unspecified complications Diabetes mellitus prison insulin use: without middle or intermediate school principal use Qualified Code(s): E11.8 - Type 2 diabetes mellitus with unspecified complications (4) HTN (hypertension) Problem: Chronic QualifierTitle: Hypertension type: essential hypertension Qualified Code( s): I10 - Essential (primary) hypertension (5) HLD (hyperlipidemia) Problem: Chronic QualifierTitle: Hyperlipidemia type: unspecified Qualified Code(s): E78.5 - Hyperlipidemia, unspecified (6) Depression Problem: Chronic QualifierTitle: Depression Type: major depressive disorder Major depression recurrence: recurrent Active/Remission status: remission status unspecified Qualified Code(s): F33.9 - Major depressive disorder, recurrent, unspecified (7) VARUN (generalized anxiety disorder) Problem: Chronic <Michael Small - Last Filed: 03/06/17 17:53> Immunizations: IMMUNIZATION HX Immunizations Up to Date Yes History of Influenza Vaccine No Hx Pneumococcal Vaccination Yes Exam - Exam Vital Signs: Vital Signs - Last Taken Temp 36.7 C 03/06/17 16:00 Pulse 100 03/06/17 16:00 Resp 16 03/06/17 16:00 BP 113/72 03/06/17 16:00 Pulse Ox 95 03/06/17 16:00 Diagnostic Studies: Laboratory Results WBC 7.0 K/mm3 (4.0-10.5) 03/05/17 19:25 RBC 3.31 M/mm3 (4.2-5.4) L 03/05/17 19:25 Hgb 10.6 gm/dL (12.5-16.0) L 03/05/17 19:25 Hct 32.4 % (37.0-47.0) L 03/05/17 19:25 MCV 97.9 fl (78-100) 03/05/17 19:25 MCH 32.0 pg (27-31) H 03/05/17 19:25 MCHC 32.7 g/dl (32-36) 03/05/17 19:25 RDW 14.5 % (11.5-14.0) H 03/05/17 19:25 Plt Count 238 K/mm3 (150-450) 03/05/17 19:25 MPV 8.7 fl (6.0-9.5) 03/05/17 19:25 Immature Gran % (Auto) 0.60 % (0.001-0.429) H 03/05/17 19:25 Immature Gran # (Auto) 0.04 K/mm3 (0.000-0.0310) H 03/05/17 19:25 Neutrophils % 71.4 % (42-75.0) 03/05/17 19:25 Lymphocytes % 16.8 % (20-51) L 03/05/17 19:25 Monocytes % 8.2 % (0.0-9) 03/05/17 19:25 Eosinophils % 2.6 % (0.0-3.0) 03/05/17 19:25 Basophils % 0.4 % (0.0-1.0) 03/05/17 19:25 Nucleated RBC % 0.0 k/mm3 (0-1) 03/05/17 19:25 Neutrophils # 5.0 K/mm3 (1.3-6.0) 03/05/17 19:25 Lymphocytes # 1.2 k/mm3 (1.5-3.5) L 03/05/17 19:25 Monocytes # 0.6 k/mm3 (0.0-1.0) 03/05/17:25 Eosinophils # 0.2 k/mm3 (0.0-0.7) 03/05/17 19:25 Absolute Basophils 0.0 k/mm3 (0.0-0.1) 03/05/17 19:25 PT 10.0 Seconds (9.4-11.4) 03/05/17 19:25 INR (Anticoag Therapy) 0.96 INR (0.90-1.10) 03/05/17 19:25 pCO2 33.7 mmHg (32.0-45.0) 03/05/17 19:40 pO2 66.8 mmHg (83.0-108.0) L 03/05/17 19:40 HCO3 20.3 mmol/L (21.0-28.0) L 03/05/17 19:40 Total CO2 21.3 mmol/L (19.0-24.0) 03/05/17 19:40 Base Excess -3.6 mmol/L (-2.0-3.0) L 03/05/17 19:40 ABG pH 7.40 (7.35-7.45) 03/05/17 19:40 ABG O2 Sat (Measured) 93.5 % (94.0-98.0) L 03/05/17 19:40 Sodium 142 mmol/L (132-142) 03/05/17 19:25 Plasma Sodium 142 mmol/L (130-142) 03/05/17 19:25 Potassium 4.0 mmol/L (3.4-4.6) 03/05/17 19:25 Chloride 107 mmol/L (97-106) H 03/05/17 19:25 Carbon Dioxide 25.6 mmol/L (24-32.6) 03/05/17 19:25 Anion Gap 13.4 mmol/L (6.8-13.8) 03/05/17 19:25 BUN 24 mg/dL (3-23) H 03/05/17 19:25 Creatinine 1.07 mg/dL (0.4-1.4) 03/05/17 19:25 Est GFR (Non-Af Amer) 53 mL/min (60-130) L 03/05/17 19:25 BUN/Creatinine Ratio 22.4 (9.0-21.6) H 03/05/17 19:25 Random Glucose 118 mg/dL (70-110) H 03/05/17 19:25 Lactic Acid, Venous 1.0 mmol/L (0.4-1.9) 03/05/17 19:25 Calcium 8.6 mg/dL (7.9-10.9) 03/05/17 19:25 Calcium Adj for Albumin 8.9 mg/dL (8.4-10.2) 03/05/17 19:25 Total Bilirubin 0.2 mg/dL (0.0-1.1) 03/05/17 19:25 AST 18 U/L (0-48) 03/05/17 19:25 ALT 26 U/L (19-67) 03/05/17 19:25 Alkaline Phosphatase 93 U/L (50-170) 03/05/17 19:25 Total Protein 6.7 gm/dL (6.2-8.2) 03/05/17 19:25 Albumin 3.2 gm/dl (3.4-5.0) L 03/05/17 19:25 Procalcitonin Less than 0.05 ng/mL (0.05-0.50) L 03/05/17 19:25 Urine Color Pale yellow 03/05/17 19:25 Urine Appearance Cloudy 03/05/17 19:25 Urine pH 7.5 pH (5.0-7.0) 03/05/17 19:25 Ur Specific [place] 1.015 SP.GR. (1.005-1.010) 03/05/17 19:25 Urine Protein 30 mg/dL (NEGATIVE) H 03/05/17 19:25 Urine Glucose (UA) Negative mg/dL (NEGATIVE) 03/05/17 19:25 Urine Ketones Negative mg/dL (NEGATIVE) 03/05/17 19:25 Urine Blood 50 /ul (NEGATIVE) H 03/05/17 19:25 Urine Nitrate Positive (NEGATIVE) H 03/05/17 19:25 Urine Bilirubin Negative mg/dl (NEGATIVE) 03/05/17 19:25 Prot Sulfosalicylic Acd 1+ mg/dL (0) 03/05/17 19:25 Urine Urobilinogen Normal EU/dl (NORMAL) 03/05/17 19:25 Ur Leukocyte Esterase 500 /ul (NEGATIVE) H 03/05/17 19:25 Urine RBC 0-5 /hpf (0-5) 03/05/17 19:25 Urine WBC >50 /hpf (0-5) H 03/05/17 19:25 Ur Epithelial Cells 0-5 /hpf (0-5) 03/05/17 19:25 Urine Bacteria 3+ (NONE) H 03/05/17 19:25 Urine Culture Comments Culture to follow 03/05/17 19:25 Urine Opiates Screen Negative (NEGATIVE) 03/05/17 19:25 Barbiturate Screen Negative (NEGATIVE) 03/05/17 19:25 Ur Phencyclidine Scrn Negative (NEGATIVE) 03/05/17 19:25 Urine Amphetamine Negative (NEGATIVE) 03/05/17 19:25 U Benzodiazepines Scrn Positive (NEGATIVE) H 03/05/17 19:25 Urine Cocaine Screen Negative (NEGATIVE) 03/05/17 19:25 Urine Marijuana (THC) Negative (NEGATIVE) 03/05/17 19:25 Assessment/Plan - Narrative Narrative: History of recurrent UTIs and will need urology referral at time of discharge. I directed our nurse practitioner hospitalist in her care of our patient.
[2017-03-06] MEDS ORDERED: DENOSUMAB 60 MG SQ SCH (03:15)
[2017-03-06] MEDS: CIPROFLOXACIN HCL 25 DROP BTL RIGHTEYE SCH ×4 (03:29→21:43)
[2017-03-06] MEDS ORDERED: ACETAMINOPHEN 325 MG TABLET PO SCH (06:00)
[2017-03-06] MEDS ORDERED: ALBUTEROL SULFATE 200 PUFF INHALER IH SCH (07:00)
[2017-03-06] MEDS: LEVOTHYROXINE SODIUM 25 MCG TABLET PO SCH (07:15)
[2017-03-06] MEDS: PANTOPRAZOLE SODIUM 20 MG TABLET.DR PO SCH (07:15)
[2017-03-06] MEDS: ENOXAPARIN SODIUM 40 MG/0.4 ML SYRG SC SCH (07:15)
[2017-03-06] MEDS ORDERED: VITAMIN E 100 UNIT PO SCH (09:00)
[2017-03-06] MEDS ORDERED: POLYETHYLENE GLYCOL 3350 119 GM BTL PO SCH (09:00)
[2017-03-06] MEDS: MAGNESIUM OXIDE 400 MG TABLET PO SCH ×3 (09:24→17:22)
[2017-03-06] MEDS: FOLIC ACID 1 MG TABLET PO SCH (09:24)
[2017-03-06] MEDS: MULTIVITAMINS 1 TAB TAB.CHEW PO SCH (09:24)
[2017-03-06] MEDS: BISACODYL 5 MG TABLET.DR PO SCH (09:25)
[2017-03-06] MEDS: LORATADINE 10 MG TABLET PO SCH (09:25)
[2017-03-06] MEDS: NYSTATIN 15 APPL BTL TP SCH ×2 (09:25→20:27)
[2017-03-06] MEDS: ASPIRIN 81 MG TABLET.DR PO SCH (09:25)
[2017-03-06] MEDS: CHOLECALCIFEROL 1,000 UNIT CAPSULE PO SCH (09:25)
[2017-03-06] MEDS: CALCIUM CARBONATE 500 MG TAB.CHEW PO SCH (09:26)
[2017-03-06] MEDS: CLOTRIMAZOLE/BETAMET DIPROP 15 APPL TUBE TP SCH ×2 (09:26→20:27)
[2017-03-06] MEDS: VITAMIN E (DL,TOCOPHERYL ACET) 400 UNITS CAPSULE PO SCH (09:26)
[2017-03-06] MEDS: lamoTRIgine 100 MG TABLET PO SCH (09:26)
[2017-03-06] MEDS: DEXTROSE 5%-LACTATED RINGERS 1,000 ML IV PRN ×2 (10:29→20:20)
[2017-03-06] MEDS: ALPRAZolam 1 MG TABLET PO SCH (17:02)
--- NOTE | 2017-03-06 18:23 | PN ---
Subjective - Date and Time Seen Date: 03/06/17 Time: 07:10 Subjective Narrative: Better this morning, less confuse, Wonders why she gets so many uti's. Just got over one. Hungry. Stronger. Objective - Review of Systems Generalized/Overall Review: Reports: Malaise EENTM: Reports: No Symptoms Reported Respiratory: Reports: No Symptoms Reported Cardiac: Reports: No Symptoms Reported Abdominal: Reports: No Symptoms Reported Genitourinary Symptoms: Reports: No Symptoms Reported Musculoskeletal Complaints: Reports: No Symptoms Reported Neurological: Reports: No Symptoms Reported Skin: Reports: No Symptoms Reported Endocrine: Reports: No Symptoms Reported Misc: All systems neg except as marked - Vitals Vitals: Last Vital Signs Selected Entries 03/06/17 06:25 Temperature 36.1 C L Temperature Oral Source Pulse Rate 86 Respiratory 20 Rate Blood Pressure 108/67 O2 Sat by Pulse 93 Oximetry Oxygen Delivery Room Air Method - Exam Constitutional: Present: Alert, Oriented x3, Cooperative, Well developed, Well nourished ENT Exam: Present: normal ENT inspection, hearing grossly normal Neck: Present: normal inspection Respiratory: Present: normal breath sounds, no respiratory distress Cardiovascular/Chest: Present: regular rate, rhythm, no edema Abdomen: Present: Normal bowel sounds, soft, nontender, nondistended, no rebound tenderness, no hepatospenomegaly, no masses Extremity: Present: normal inspection, no pedal edema Skin Exam: Present: normal color, warm/dry, no cyanosis Neurologic: Present: alert, oriented x 3 Appearance: Present: appropriate appearance, appropriate insight, neat, no memory impairment Eye contact: Present: cooperative, good eye contact, normal speech Thoughts: Present: normal thought pattern Assessment/Plan Plan Narrative: Follow labs, await culture, Iv antibiotics, estimate stay of 3 days, ultimate urology referral. - Problems/Diagnosis (1) UTI (urinary tract infection) Problem: Acute Qualifiers: Urinary tract infection type: acute cystitis Hematuria presence: with hematuria Qualified Code(s): N30.01 - Acute cystitis with hematuria (2) Depression Problem: Chronic Qualifiers: Depression Type: major depressive disorder Major depression recurrence: recurrent Active/Remission status: remission status unspecified Qualified Code(s): F33.9 - Major depressive disorder, recurrent, unspecified (3) Diabetes Problem: Chronic Qualifiers: Diabetes mellitus type: type 2 Diabetes mellitus complication status: with unspecified complications Diabetes mellitus elementary school principal insulin use: without senior living use Qualified Code(s): E11.8 - Type 2 diabetes mellitus with unspecified complications (4) VARUN (generalized anxiety disorder) Problem: Chronic (5) HLD (hyperlipidemia) Problem: Chronic Qualifiers: Hyperlipidemia type: unspecified Qualified Code(s): E78.5 - Hyperlipidemia , unspecified (6) HTN (hypertension) Problem: Chronic Qualifiers: Hypertension type: essential hypertension Qualified Code(s): I10 - Essential (primary) hypertension (7) Altered mental status Problem: Acute Qualifiers: Altered mental status type: unspecified Qualified Code(s): R41.82 - Altered mental status, unspecified (8) Back pain Problem: Acute (9) COPD (chronic obstructive pulmonary disease) Problem: Chronic Qualifiers: COPD type: chronic bronchitis Chronic bronchitis type: simple Qualified Code(s): J41.0 - Simple chronic bronchitis
[2017-03-06] MEDS: OXYBUTYNIN CHLORIDE 5 MG TABLET PO SCH (20:25)
[2017-03-06] MEDS: risperiDONE 1 MG TABLET PO SCH (20:26)
[2017-03-06] MEDS: SIMVASTATIN 40 MG TABLET PO SCH (20:28)
[2017-03-06] MEDS: QUEtiapine FUMARATE 25 MG TABLET PO SCH (20:30)
[2017-03-06] MEDS: METOPROLOL TARTRATE 25 MG TABLET PO SCH (20:33)
[2017-03-06] MEDS ORDERED: NON-FORMULARY 1 DOSE DOSE (Topiramate [Topamax] 25 MG) PO SCH (21:00)
[2017-03-06] MEDS: ALBUTEROL SULFATE 2.5 MG/3 ML VIAL.NEB IH SCH (21:03)
[2017-03-06] MEDS: TROLAMINE SALICYLATE 90 APPL TUBE TP SCH (21:44)
[2017-03-07] MEDS: ALBUTEROL SULFATE 2.5 MG/3 ML VIAL.NEB IH SCH ×4 (01:13→19:51)
[2017-03-07] MEDS: ACETAMINOPHEN 325 MG TABLET PO PRN ×2 (03:13→19:02)
[2017-03-07] MEDS: CIPROFLOXACIN HCL 25 DROP BTL RIGHTEYE SCH ×4 (03:15→21:21)
[2017-03-07 05:42] LABS: Hematocrit 31.2 % (37.0-47.0); Hemoglobin 10.3 gm/dL (12.5-16.0); Mean Cell Volume 98.1 fl (78-100); Mean Corpuscular Hemoglobin 32.4 pg (27-31); Mean Platelet Volume 8.6 fl (6.0-9.5); Neutrophil # 4.8 K/mm3 (1.3-6.0); Neutrophil % 68.6 % (42-75.0); Platelet Count 219 K/mm3 (150-450); Red Blood Count 3.18 M/mm3 (4.2-5.4); Red Cell Distribution Width 14.1 % (11.5-14.0); White Blood Count 6.9 K/mm3 (4.0-10.5)
[2017-03-07 05:49] LABS: Anion Gap 10.9 mmol/L (6.8-13.8); BUN/Creatinine Ratio 13.2 (9.0-21.6); Calcium * 8.9 mg/dL (7.9-10.9); Carbon Dioxide 26.1 mmol/L (24-32.6); Estimated Creat Clear 47.5
[2017-03-07] MEDS: PANTOPRAZOLE SODIUM 20 MG TABLET.DR PO SCH (06:48)
[2017-03-07] MEDS: ENOXAPARIN SODIUM 40 MG/0.4 ML SYRG SC SCH (06:48)
[2017-03-07] MEDS: LEVOTHYROXINE SODIUM 25 MCG TABLET PO SCH (06:48)
[2017-03-07] MEDS: DEXTROSE 5%-LACTATED RINGERS 1,000 ML IV PRN ×2 (06:49→18:56)
[2017-03-07] MEDS: ASPIRIN 81 MG TABLET.DR PO SCH (08:39)
[2017-03-07] MEDS: FOLIC ACID 1 MG TABLET PO SCH (08:40)
[2017-03-07] MEDS: lamoTRIgine 100 MG TABLET PO SCH (08:40)
[2017-03-07] MEDS: CLOTRIMAZOLE/BETAMET DIPROP 15 APPL TUBE TP SCH ×2 (08:40→21:20)
[2017-03-07] MEDS: LORATADINE 10 MG TABLET PO SCH (08:40)
[2017-03-07] MEDS: MULTIVITAMINS 1 TAB TAB.CHEW PO SCH (08:40)
[2017-03-07] MEDS: BISACODYL 5 MG TABLET.DR PO SCH (08:40)
[2017-03-07] MEDS: CHOLECALCIFEROL 1,000 UNIT CAPSULE PO SCH (08:41)
[2017-03-07] MEDS: POLYETHYLENE GLYCOL 3350 119 GM BTL PO SCH (08:41)
[2017-03-07] MEDS: CALCIUM CARBONATE 500 MG TAB.CHEW PO SCH (08:41)
[2017-03-07] MEDS: NYSTATIN 15 APPL BTL TP SCH ×2 (08:41→21:19)
[2017-03-07] MEDS: MAGNESIUM OXIDE 400 MG TABLET PO SCH ×3 (08:41→16:47)
[2017-03-07] MEDS: VITAMIN E (DL,TOCOPHERYL ACET) 400 UNITS CAPSULE PO SCH (08:42)
[2017-03-07] MEDS: METOPROLOL TARTRATE 25 MG TABLET PO SCH ×2 (08:49→21:20)
[2017-03-07] MEDS: TROLAMINE SALICYLATE 90 APPL TUBE TP SCH ×4 (08:59→21:18)
[2017-03-07] MEDS ORDERED: NALTREXONE HCL 50 MG TABLET PO SCH (09:00)
[2017-03-07] MEDS ORDERED: METHOTREXATE SODIUM 2.5 MG TABLET PO SCH ×2 (09:00→21:00)
[2017-03-07] MEDS: ALPRAZolam 1 MG TABLET PO SCH (16:47)
--- NOTE | 2017-03-07 17:58 | PN ---
Subjective - Date and Time Seen Date: 03/07/17 Time: 07:00 Subjective Narrative: Better this morning, less confuse, Wonders why she gets so many uti's. Just got over one. Hungry. Stronger. Objective - Review of Systems Generalized/Overall Review: Reports: No Symptoms Reported EENTM: Reports: No Symptoms Reported Respiratory: Reports: No Symptoms Reported Cardiac: Reports: No Symptoms Reported Abdominal: Reports: No Symptoms Reported Genitourinary Symptoms: Reports: No Symptoms Reported Musculoskeletal Complaints: Reports: No Symptoms Reported Neurological: Reports: No Symptoms Reported Skin: Reports: No Symptoms Reported Endocrine: Reports: No Symptoms Reported Misc: All systems neg except as marked - Vitals Vitals: Last Vital Signs Selected Entries 03/06/17 03/07/17 03/07/17 23:00 01:13 01:23 Temperature 36.7 C Temperature Oral Source Pulse Rate 100 20 L 80 Respiratory 20 16 24 H Rate Blood Pressure 106/53 Blood Pressure 70 Mean O2 Sat by Pulse 93 Oximetry 03/07/17 02:02 Temperature Temperature Source Pulse Rate 87 Respiratory Rate Blood Pressure Blood Pressure Mean O2 Sat by Pulse Oximetry - Abnormal Lab Findings Abnormal Lab Findings: Abnormal Lab Results 03/07/17 03/07/17 Range/Units 05:15 05:15 RBC 3.18 L (4.2-5.4) M/mm3 Hgb 10.3 L (12.5-16.0) gm/dL Hct 31.2 L (37.0-47.0) % MCH 32.4 H (27-31) pg RDW 14.1 H (11.5-14.0) % Immature Gran % (Auto) 0.60 H (0.001-0.429) % Immature Gran # (Auto) 0.04 H (0.000-0.0310) K/mm3 Lymphocytes % 15.3 L (20-51) % Monocytes % 10.2 H (0.0-9) % Eosinophils % 5.2 H (0.0-3.0) % Lymphocytes # 1.1 L (1.5-3.5) k/mm3 Plasma Sodium 143 H (130-142) mmol/L Chloride 109 H (97-106) mmol/L Random Glucose 145 H (70-110) mg/dL - Exam Constitutional: Present: Alert, Oriented x3, Cooperative, Well developed, Well nourished, No distress ENT Exam: Present: normal ENT inspection, hearing grossly normal, pharynx normal Neck: Present: non-tender, full range of motion, supple, normal inspection Respiratory: Present: normal breath sounds, no respiratory distress Cardiovascular/Chest: Present: normal peripheral pulses, regular rate, rhythm, no chest tenderness, no edema, no gallop, no JVD, no murmur Abdomen: Present: Normal bowel sounds, soft, nontender, nondistended, no rebound tenderness, no hepatospenomegaly, no masses Extremity: Present: normal inspection, no pedal edema Skin Exam: Present: normal color, warm/dry, no cyanosis Neurologic: Present: alert, oriented x 3 Appearance: Present: appropriate appearance, appropriate insight, neat Eye contact: Present: cooperative, good eye contact, normal speech Thoughts: Present: normal thought pattern Assessment/Plan Plan Narrative: Antibiotics. labs. wait for culture. - Problems/Diagnosis (1) UTI (urinary tract infection) Problem: Acute Qualifiers: Urinary tract infection type: acute cystitis Hematuria presence: with hematuria Qualified Code(s): N30.01 - Acute cystitis with hematuria (2) Depression Problem: Chronic Qualifiers: Depression Type: major depressive disorder Major depression recurrence: recurrent Active/Remission status: remission status unspecified Qualified Code(s): F33.9 - Major depressive disorder, recurrent, unspecified (3) Diabetes Problem: Chronic Qualifiers: Diabetes mellitus type: type 2 Diabetes mellitus complication status: with unspecified complications Diabetes mellitus [employer] insulin use: without assisted use Qualified Code(s): E11.8 - Type 2 diabetes mellitus with unspecified complications (4) VARUN (generalized anxiety disorder) Problem: Chronic (5) HLD (hyperlipidemia) Problem: Chronic Qualifiers: Hyperlipidemia type: unspecified Qualified Code(s): E78.5 - Hyperlipidemia , unspecified (6) HTN (hypertension) Problem: Chronic Qualifiers: Hypertension type: essential hypertension Qualified Code(s): I10 - Essential (primary) hypertension (7) Altered mental status Problem: Acute Qualifiers: Altered mental status type: unspecified Qualified Code(s): R41.82 - Altered mental status, unspecified (8) Back pain Problem: Acute (9) COPD (chronic obstructive pulmonary disease) Problem: Chronic Qualifiers: COPD type: chronic bronchitis Chronic bronchitis type: simple Qualified Code(s): J41.0 - Simple chronic bronchitis
[2017-03-07] MEDS: QUEtiapine FUMARATE 25 MG TABLET PO SCH (20:45)
[2017-03-07] MEDS: risperiDONE 1 MG TABLET PO SCH (21:20)
[2017-03-07] MEDS: OXYBUTYNIN CHLORIDE 5 MG TABLET PO SCH (21:20)
[2017-03-07] MEDS: SIMVASTATIN 40 MG TABLET PO SCH (21:21)
[2017-03-08] MEDS: ALBUTEROL SULFATE 2.5 MG/3 ML VIAL.NEB IH SCH ×2 (01:06→06:02)
[2017-03-08] MEDS: ACETAMINOPHEN 325 MG TABLET PO PRN (02:21)
[2017-03-08] MEDS: CIPROFLOXACIN HCL 25 DROP BTL RIGHTEYE SCH ×2 (04:57→09:56)
[2017-03-08 05:26] LABS: Hematocrit 32.1 % (37.0-47.0); Hemoglobin 10.4 gm/dL (12.5-16.0); Mean Cell Volume 98.8 fl (78-100); Mean Corpuscular Hgb Conc 32.4 g/dl (32-36); Mean Platelet Volume 8.8 fl (6.0-9.5); Neutrophil # 4.9 K/mm3 (1.3-6.0); Neutrophil % 70.4 % (42-75.0); Platelet Count 240 K/mm3 (150-450); Red Blood Count 3.25 M/mm3 (4.2-5.4); White Blood Count 6.9 K/mm3 (4.0-10.5)
[2017-03-08] MEDS: DEXTROSE 5%-LACTATED RINGERS 1,000 ML IV PRN (05:31)
[2017-03-08 05:36] LABS: Anion Gap 10.2 mmol/L (6.8-13.8); BUN/Creatinine Ratio 10.1 (9.0-21.6); Calcium * 9.5 mg/dL (7.9-10.9); Carbon Dioxide 28.9 mmol/L (24-32.6); Estimated Creat Clear 48.6; Potassium 4.1 mmol/L (3.4-4.6)
[2017-03-08 06:36] VITALS: BP 110/68
[2017-03-08] MEDS: ENOXAPARIN SODIUM 40 MG/0.4 ML SYRG SC SCH (07:12)
[2017-03-08] MEDS: PANTOPRAZOLE SODIUM 20 MG TABLET.DR PO SCH (07:13)
[2017-03-08] MEDS: LEVOTHYROXINE SODIUM 25 MCG TABLET PO SCH (07:13)
--- NOTE | 2017-03-08 08:11 | DS ---
(1) UTI (urinary tract infection) Diagnosis(s): E. Coli Problem: Acute Qualifiers: Urinary tract infection type: acute cystitis Hematuria presence: with hematuria Qualified Code(s): N30.01 - Acute cystitis with hematuria (2) Depression Problem: Chronic Qualifiers: Depression Type: major depressive disorder Major depression recurrence: recurrent Active/Remission status: remission status unspecified Qualified Code(s): F33.9 - Major depressive disorder, recurrent, unspecified (3) Diabetes Problem: Chronic Qualifiers: Diabetes mellitus type: type 2 Diabetes mellitus complication status: with unspecified complications Diabetes mellitus buttermaker continuous churn insulin use: without buttermaker continuous churn use Qualified Code(s): E11.8 - Type 2 diabetes mellitus with unspecified complications (4) VARUN (generalized anxiety disorder) Problem: Chronic (5) HLD (hyperlipidemia) Problem: Chronic Qualifiers: Hyperlipidemia type: unspecified Qualified Code(s): E78.5 - Hyperlipidemia , unspecified (6) HTN (hypertension) Problem: Chronic Qualifiers: Hypertension type: essential hypertension Qualified Code(s): I10 - Essential (primary) hypertension (7) Altered mental status Problem: Acute Qualifiers: Altered mental status type: unspecified Qualified Code(s): R41.82 - Altered mental status, unspecified (8) Back pain Problem: Acute (9) COPD (chronic obstructive pulmonary disease) Problem: Chronic Qualifiers: COPD type: chronic bronchitis Chronic bronchitis type: simple Qualified Code(s): J41.0 - Simple chronic bronchitis Description of Stay: Improved dramatically with IV antibiotics. Appetite good. Ambulating well. Will evaluate as an outpatient for recurrent UTIs. Procedures Performed: none Discharge Disposition: Home self care Disposition: Home self-care Condition: Good Discharge Activity: Activity as tolerated Discharge Diet: Consistent carbs Problem Oriented Discharge Instructions to Patient/Family: Urinary Tract Infection, Adult, [id number] Additional Patient Instructions (free text): TCM appointment at discharge. Call Dara at [phone] when discharged. Keep all previously scheduled appts Prior to discharge, arrange for her an outpatient urology appt. Ask them to answer the following two questions: 1) why does she continue to get UTIs? 2) what can we do to prevent this? Prescriptions (Any new or edited meds): Nystatin [Mycostatin Powder] 1 appl TP BID #1 btl Sulfamethoxazole/Trimethoprim [Bactrim Ds] 1 tab PO BID #60 tab Complete Home Medications List: Complete Home Medication List: ALPRAZolam [Xanax] 2 mg PO TID PRN 03/05/17 Acetaminophen 650 mg PO Q6H 03/05/17 Albuterol Sulfate [Ventolin HFA] 2 puff IH Q6H 03/05/17 Amlodipine Besylate [Norvasc] 2.5 mg PO DAILY 03/05/17 Aspirin [Aspirin EC] 81 mg PO DAILY 03/05/17 Bisacodyl [Dulcolax] 5 mg PO DAILY 03/05/17 Calcium Carbonate 600 mg PO DAILY 03/05/17 Calcium Carbonate [Antacid Extra Strength] 750 mg PO BID 03/05/17 Cetirizine HCl [Zyrtec] 10 mg PO DAILY 03/05/17 Cholecalciferol (Vitamin D3) [Vitamin D3] 1,000 unit PO DAILY 03/05/17 Clotrimazole/Betamethasone Dip [Clotrimazole-Betamethasone Crm] 1 appl TP BID Denosumab [Prolia] 60 mg SQ Q6M 03/05/17 Folic Acid 1 mg PO DAILY 03/05/17 Ibuprofen 200 mg PO Q6H 03/05/17 Lamotrigine [Lamictal] 100 mg PO DAILY 03/05/17 Levothyroxine Sodium [Synthroid] 25 mcg PO DAILY 03/05/17 Losartan Potassium [Cozaar] 25 mg PO DAILY 03/05/17 Magnesium 250 mg PO TID 03/05/17 Methotrexate Sodium [Methotrexate] 3 tab PO BID 03/05/17 Metoprolol Tartrate [Lopressor] 25 mg PO BID 03/05/17 Multivitamin [One Daily Multivitamin] 1 each PO DAILY 03/05/17 Naltrexone HCl [ReVia] 50 mg PO DAILY 03/05/17 Omeprazole 20 mg PO DAILY 03/05/17 Oxybutynin Chloride [Ditropan Xl] 5 mg PO HS 03/05/17 QUEtiapine FUMARATE [Seroquel] 25 mg PO HS 03/05/17 Simvastatin [Zocor] 40 mg PO HS 03/05/17 Topiramate [Topamax] 25 mg PO HS 03/05/17 Trolamine Salicylate [Aspercreme] 1 appl TP QID 03/05/17 Vitamin E 1,000 unit PO DAILY 03/05/17 risperiDONE [Risperdal] 4 mg PO HS 03/05/17 Ciprofloxacin HCl [Ciloxan 0.3% Ophthalmic Solution] 1 drop RIGHTEYE Q6H btl Nystatin [Mycostatin Powder] 1 appl TP BID #1 btl 03/08/17 Polyethylene Glycol 3350 [Miralax] 17 gm PO DAILY btl 03/08/17 Sulfamethoxazole/Trimethoprim [Bactrim Ds] 1 tab PO BID #60 tab 03/08/17
[2017-03-08] MEDS: TROLAMINE SALICYLATE 90 APPL TUBE TP SCH (09:00)
[2017-03-08] MEDS: ASPIRIN 81 MG TABLET.DR PO SCH (09:02)
[2017-03-08] MEDS: lamoTRIgine 100 MG TABLET PO SCH (09:03)
[2017-03-08] MEDS: BISACODYL 5 MG TABLET.DR PO SCH (09:03)
[2017-03-08] MEDS: METOPROLOL TARTRATE 25 MG TABLET PO SCH (09:03)
[2017-03-08] MEDS: CHOLECALCIFEROL 1,000 UNIT CAPSULE PO SCH (09:05)
[2017-03-08] MEDS: FOLIC ACID 1 MG TABLET PO SCH (09:05)
[2017-03-08] MEDS: MAGNESIUM OXIDE 400 MG TABLET PO SCH (09:05)
[2017-03-08] MEDS: NYSTATIN 15 APPL BTL TP SCH (09:06)
[2017-03-08] MEDS: POLYETHYLENE GLYCOL 3350 119 GM BTL PO SCH (09:06)
[2017-03-08] MEDS: CALCIUM CARBONATE 500 MG TAB.CHEW PO SCH (09:06)
[2017-03-08] MEDS: MULTIVITAMINS 1 TAB TAB.CHEW PO SCH (09:07)
[2017-03-08] MEDS: CLOTRIMAZOLE/BETAMET DIPROP 15 APPL TUBE TP SCH (09:08)
[2017-03-08] MEDS: LORATADINE 10 MG TABLET PO SCH (09:08)
[2017-03-08] MEDS: VITAMIN E (DL,TOCOPHERYL ACET) 400 UNITS CAPSULE PO SCH (09:08)
== END 2017-03-08 10:41 | disposition home or self-care (01) | DRG 690 ==
LOC: ER 19:10 → MS 20:55
PROVIDERS: ADMIT Nurse Practitioner Critical Care Medicine; ATTEND Allergy & Immunology
PROC: 0T9B7ZZ Drainage of Bladder, Via Natural or Artificial Opening (ICD-10-PCS; principal; 2017-03-05)
PROC: 4A033R1 Measurement of Arterial Saturation, Peripheral, Percutaneous Approach (ICD-10-PCS; 2017-03-05)
DX: N30.01 Acute cystitis with hematuria (principal); F33.9 Major depressive disorder, recurrent, unspecified; R41.82 Altered mental status, unspecified; B96.20 Unspecified Escherichia coli [E. coli] as the cause of diseases classified elsewhere; J41.0 Simple chronic bronchitis; E11.9 Type 2 diabetes mellitus without complications; I10 Essential (primary) hypertension; E78.5 Hyperlipidemia, unspecified; F41.1 Generalized anxiety disorder; Z79.82 Long term (current) use of aspirin; Z87.891 Personal history of nicotine dependence; Z87.440 Personal history of urinary (tract) infections
CPT/HCPCS: 36415; 36600; 51701; 70450; 71020; 80048; 80053; 80307; 81001; 82803; 83605; 84145; 85025; 85610; 87040; 87077; 87086; 87186; 93005; 94640; 96365; 99284; J8610

== ENCOUNTER 2017-04-14 10:10 | Observation (INO) | payer MEDICARE, MEDICAID ==
[2017-04-14 10:32] LABS: Urine Bilirubin Negative (NEGATIVE); Urine Blood Negative /ul (NEGATIVE); Urine Ketone Negative (NEGATIVE); Urine Nitrite Negative (NEGATIVE); Urine Protein Negative (NEGATIVE); Urine Urobilinogen Normal (NORMAL)
[2017-04-14 10:33] LABS: Urine Appearance Clear; Urine Color Yellow
[2017-04-14 10:48] LABS: Urine Bacteria None Seen; Urine RBC None Seen /hpf (0-5); Urine WBC None Seen /hpf (0-5)
[2017-04-14] MEDS ORDERED: NORMAL SALINE 1,000 ML IV PRN (10:54)
--- NOTE | 2017-04-14 10:54 | ERNOTE ---
Neuro HPI ER Record Date of Service: 04/14/17 Presenting Symptoms: weakness, other - hallucinations Time Seen by Provider: 04/14/17 10:41 Source: patient, family Exam Limitations: clinical condition Immunizations: IMMUNIZATION HX Immunizations Up to Date Yes History of Influenza Vaccine More Information Required Hx Pneumococcal Vaccination Yes Allergies/Adverse Reactions: Allergies Allergy/AdvReac Type Severity Reaction Status Date / Time ciprofloxacin Allergy Intermediate BRONCHOSPAS Verified 04/14/17 10:27 M codeine [Codeine] AdvReac Mild ABD PAIN Verified 04/14/17 10:27 codeine phosphate AdvReac Mild ABD PAIN Verified 04/14/17 10:27 [From Codeine Phosphate Soluble] Home Medications: HOME MEDICATIONS ALPRAZolam [Xanax] 2 mg PO TID PRN 03/05/17 [Last Taken Unknown] Acetaminophen 650 mg PO Q6H 03/05/17 [Last Taken Unknown] Albuterol Sulfate [Ventolin HFA] 2 puff IH Q6H 03/05/17 [Last Taken Unknown] Aspirin [Aspirin EC] 81 mg PO DAILY 03/05/17 [Last Taken Unknown] Bisacodyl [Dulcolax] 5 mg PO DAILY 03/05/17 [Last Taken Unknown] Calcium Carbonate 600 mg PO DAILY 03/05/17 [Last Taken Unknown] Calcium Carbonate [Antacid Extra Strength] 750 mg PO BID 03/05/17 [Last Taken Unknown] Cetirizine HCl [Zyrtec] 10 mg PO DAILY 03/05/17 [Last Taken Unknown] Cholecalciferol (Vitamin D3) [Vitamin D3] 1,000 unit PO DAILY 03/05/17 [Last Taken Unknown] Clotrimazole/Betamethasone Dip [Clotrimazole-Betamethasone Crm] 1 appl TP BID [Last Taken Unknown] Denosumab [Prolia] 60 mg SQ Q6M 03/05/17 [Last Taken Unknown] Folic Acid 1 mg PO DAILY 03/05/17 [Last Taken Unknown] Ibuprofen 200 mg PO Q6H PRN 03/05/17 [Last Taken Unknown] Lamotrigine [Lamictal] 100 mg PO DAILY 03/05/17 [Last Taken Unknown] Levothyroxine Sodium [Synthroid] 25 mcg PO DAILY 03/05/17 [Last Taken Unknown] Losartan Potassium [Cozaar] 25 mg PO DAILY 03/05/17 [Last Taken Unknown] Magnesium 250 mg PO TID 03/05/17 [Last Taken Unknown] Methotrexate Sodium [Methotrexate] 3 tab PO BID 03/05/17 [Last Taken Unknown] Metoprolol Tartrate [Lopressor] 25 mg PO BID 03/05/17 [Last Taken Unknown] Multivitamin [One Daily Multivitamin] 1 each PO DAILY 03/05/17 [Last Taken Unknown] Naltrexone HCl [ReVia] 50 mg PO DAILY 03/05/17 [Last Taken Unknown] Omeprazole 20 mg PO DAILY 03/05/17 [Last Taken Unknown] Oxybutynin Chloride [Ditropan Xl] 5 mg PO HS 03/05/17 [Last Taken Unknown] QUEtiapine FUMARATE [Seroquel] 25 mg PO HS 03/05/17 [Last Taken Unknown] Simvastatin [Zocor] 40 mg PO HS 03/05/17 [Last Taken Unknown] Topiramate [Topamax] 25 mg PO HS 03/05/17 [Last Taken Unknown] Trolamine Salicylate [Aspercreme] 1 appl TP QID 03/05/17 [Last Taken Unknown] Vitamin E 1,000 unit PO DAILY 03/05/17 [Last Taken Unknown] risperiDONE [Risperdal] 4 mg PO HS 03/05/17 [Last Taken Unknown] Polyethylene Glycol 3350 [Miralax] 17 gm PO DAILY btl 03/08/17 [Last Taken Unknown] Alendronate Sodium [Fosamax] 70 mg PO Q7D 04/14/17 [Last Taken Unknown] Cyclobenzaprine HCl [Flexeril] 10 mg PO TID PRN 04/14/17 [Last Taken Unknown] Furosemide [Lasix] 40 mg PO DAILY 04/14/17 [Last Taken Unknown] - History of Present Illness Narrative: 71-year-old white female brought to the ED by private car by her daughter. Daughter presents with patient due to generalized weakness and hallucinations. Apparently patient has had visual hallucinations the past couple day. Family had reported this to patient psychiatrist and he had made a change in her Topamax from 50 mg twice daily to 25 mg daily daily at bedtime. Patient apparently was difficult to arouse this morning. Family report no new medications. She was difficult to arouse and did not want to get out of bed. This apparently is abnormal for the patient. They assisted her to the car. Daughter went into an office for medical appointment return to the car and found patient with increasing weakness. Patient was able to verbalize that she needed to go to the hospital. On presentation patient is lethargic. She will answer simple questions. She is alert and orientated. There is no other detailed history. Patient is unable to provide detailed history due to her medical condition. Daughter is a poor historian. Review of Systems - Narrative Narrative: Review of systems as reported in the HPI. Unable to obtain full review of systems due to patient's underlying medical condition. - Patient's Past Medical History Patient History - Medical: Diabetes Type 2, Depression, UTI'S Patient History - Cardiac/Respiratory: TIA Patient History - Cancer: No Hx of Cancer Patient History - Surgical Procedures: Back Surgery Patient History - Other: None - Family History Mother Family History - Medical: Family History - Cardiac/Respiratory: CHF, Myocardial Infarction Brother Family History - Medical: - Social History Living Situations: home Abuse History: No History of abuse Psych History: Hx of Anxiety, Hx of Depression Have you smoked in the past 12 months: No Do you dip or chew tobacco: No Alcohol Use: none Drug Use: none - Immunizations Immunizations Up to Date: Yes Hx Pneumococcal Vaccination: Yes History of Influenza Vaccine: More Information Required to Determine Physical Exam - Physical Exam General Appearance: Present: severe distress Head Exam: Present: no evidence of injury Eye Exam: PERRL: bilateral, EOMI: bilateral Ears, Nose, Throat: Present: dry mucous membranes Neck: Present: normal inspection, nontender Respiratory: Present: no respiratory distress, normal breath sounds, no accessory muscle use Cardiovascular/Chest: Present: regular rate, rhythm, no murmur, normal peripheral pulses Peripheral Pulses: N=norm/S=strong/W=weak/B=bound/A=absent: Carotid (R): Normal , Carotid (L): Normal, Radial (R): Normal, Radial (L): Normal, Dorsalis-pedis (R ): Normal, Dorsalis-pedis (L): Normal Gastrointestinal/Abdominal: Present: normal bowel sounds, nontender, nondistended. Absent: tenderness, abnormal bowel sounds, distended Extremity Exam: Present: normal inspection Neurological Exam: Present: instrumentation engineering technician II-XII nml as tested, motor weakness, other - patient has eyes closed. She will open eyes. She will answer simple questions. She will move all 4 extremities equally with significant weakness. Skin Exam: Present: warm/dry, pallor ED Progress - Results and Orders Patient's Lab Results:: I have reviewed the patient's lab results. - Vital Signs Patient's Vital Signs:: I have reviewed the patient's vital signs. Vital Signs: Vital Signs 04/14/17 10:21 Temperature 37.4 C Pulse Rate 82 Respiratory 19 Rate Blood Pressure 97/70 O2 Sat by Pulse 93 Oximetry - EKG EKG: NSR EKG read: Interp. by me - X-Ray X-Ray #1 X-Ray: chest Interpretation: Reviewed by me - CT/Ultrasound CT/Ultrasound Narrative: ABDOMEN/PELVIS: Exam is limited by noncontrast technique. Additionally, there is beam hardening artifact related to a surgical construct at the lower thoracic/upper lumbar spine. There is atelectasis at the lung bases. Severe coronary artery calcifications are noted in the distribution of the left anterior descending coronary artery. There are calcified hepatic and splenic granulomas. There is abnormal segmental intrahepatic biliary ductal dilatation at the posterior superior medial right hepatic lobe , better demonstrated on prior exams. Changes from cholecystectomy. The adrenal glands are unremarkable. No obvious urolithiasis. No evidence of obstructive uropathy. Limited to assess for renal mass or cyst. There is limited evaluation of the unopacified hollow viscera. Stool retention. Sigmoid colon diverticulosis. No evidence of diverticulitis. There is a indwelling Hernández catheter within the urinary bladder with internal air-fluid level; correlate for instrumentation versus emphysematous cystitis. Pelvic structures are otherwise grossly unremarkable. Atherosclerotic calcifications are noted throughout the normal caliber aorta and branching vessels. No free air. No free fluid. No significant lymphadenopathy. Small fat-containing umbilical hernia. There are degenerative changes. Changes from L3 kyphoplasty. Changes from lower thoracic/upper lumbar posterior fusion. IMPRESSION: No obvious evidence of urolithiasis or obstructive uropathy. Additional findings and comments are as above. CT brain no acute findings per radiologist Electronically signed by Man Hernandes D.O.. - Progress/Reassessment Chief Complaint: Altered Mental Status Progress:: Re-examined Progress Note-Subjective: 04/14/17 14:[address] Sim Lehman. Advised physician patient will need to be admitted to intensive care unit under close observation. If her mental status deteriorated she will need to be placed on mechanical ventilation to protect her airway. He verbalized understanding of this. Most likely etiology for this patient's presentation would be medication or illicit drug usage. However at this time all of this is unknown. Departure Clinical Impression: Hallucinations, Somnolence, History of depression, Dehydration Altered mental status, unspecified Qualifiers: Altered mental status type: somnolence Qualified Code(s): R40.0 - Somnolence Morbid obesity Qualifiers: Obesity type: due to excess calories Qualified Code(s): E66.01 - Morbid (severe ) obesity due to excess calories Diabetes Qualifiers: Diabetes mellitus type: type 2 Diabetes mellitus complication status: with unspecified complications Diabetes mellitus intermediate accountant insulin use: unspecified care home insulin use status Qualified Code(s): E11.8 - Type 2 diabetes mellitus with unspecified complications - Departure Disposition: [facility] Condition: Critical Referrals: Michael Small MD [Primary Care Provider] -
[2017-04-14 10:57] LABS: Hematocrit 34.1 % (37.0-47.0); Hemoglobin 11.4 gm/dL (12.5-16.0); Mean Cell Volume 96.1 fl (78-100); Mean Corpuscular Hemoglobin 32.1 pg (27-31); Mean Corpuscular Hgb Conc 33.4 g/dl (32-36); Mean Platelet Volume 8.8 fl (6.0-9.5); Neutrophil # 3.4 K/mm3 (1.3-6.0); Neutrophil % 68.2 % (42-75.0); Platelet Count 280 K/mm3 (150-450); Red Blood Count 3.55 M/mm3 (4.2-5.4)
[2017-04-14 11:09] LABS: Cocaine Ur Negative (NEGATIVE); Urine Barbiturate Negative (NEGATIVE); Urine Benzodiazepines Negative (NEGATIVE); Urine Opiates Negative (NEGATIVE); Urine PCP Negative (NEGATIVE); Urine THC Negative (NEGATIVE)
[2017-04-14 11:18] LABS: Troponin I Less than 0.017 ng/ml (0.00-0.10)
[2017-04-14 11:22] LABS: ALT 26 U/L (19-67); AST 17 U/L (0-48); Albumin * 3.6 gm/dl (3.4-5.0); Alkaline Phosphatase * 91 U/L (50-170); Anion Gap 13.7 mmol/L (6.8-13.8); BUN/Creatinine Ratio 19.5 (9.0-21.6); Bilirubin, Total 0.5 mg/dL (0.0-1.1); Blood Urea Nitrogen 24 mg/dL (3-23); Ca. Corrected For Albumin 9.8 mg/dL (8.4-10.2); Calcium * 9.8 mg/dL (7.9-10.9); Carbon Dioxide 25.5 mmol/L (24-32.6); Chloride 103 mmol/L (97-106); Glucose * 127 mg/dL (70-110); Potassium 4.2 mmol/L (3.4-4.6); Sodium 138 mmol/L (132-142); TSH * 6.231 uIU/mL (0.358-3.74); Total Protein 6.8 gm/dL (6.2-8.2)
[2017-04-14 11:52] LABS: CK Total * 136 U/L (0-259)
[2017-04-14] MEDS: DEXTROSE 5%-0.5 NORMAL SALINE 1,000 ML IV PRN ×2 (14:17→21:30)
[2017-04-14] MEDS: ACETAMINOPHEN 325 MG TABLET PO SCH (16:47)
[2017-04-14] MEDS: TROLAMINE SALICYLATE 90 APPL TUBE TP SCH ×2 (16:47→20:04)
[2017-04-14] MEDS: MAGNESIUM OXIDE 400 MG TABLET PO SCH (16:47)
--- NOTE | 2017-04-14 18:51 | HP ---
Chief Complaint - Chief Complaint Date of Service: 04/14/17 Time of Service: 18:38 Chief Complaint: Sedation History of Present Illness: This is a 71-year-old white female who was brought to the [facility] ED in a private car by her daughter. Her daughter presented with the patient due to generalized weakness, somnolence and hallucinations. Apparently, the patient has had visual hallucinations for at least the past couple of days. The family had reported this to the patient's psychiatrist, and he had made a change in her Topamax, which had been successfully prescribed for her headaches, from 50 mg twice daily to 25 mg daily at bedtime. In spite of this reduction, the patient was still apparently difficult to arouse this morning. The family reported no other new medications. In addition, she did not want to get out of bed. This apparently is abnormal for the patient. They assisted her with great effort to the car. Her daughter then went into an office for her own medical appointment. Upon return to the car, she found the patient with increasing weakness and still lethargic. The patient was able to verbalize that she needed to go to the hospital. Upon presentation to the [facility] ED the patient was in fact quite lethargic and remained so. She would answer simple questions. She was oriented however. There is no other detailed history. Her daughter is also, unfortunately, a poor historian. - Patient's Past Medical History Patient History - Medical: Anxiety, Bipolar, Diabetes Type 2, Depression, GERD, Headache, Hypothyroidism, Osteoporosis, UTI'S Patient History - Cardiac/Respiratory: Hypertension, Hyperlipidemia, TIA Patient History - Cancer: No Hx of Cancer Patient History - Surgical Procedures: Back Surgery Patient History - Other: None - Family History Mother Family History - Medical: Family History - Cardiac/Respiratory: CHF, Myocardial Infarction Brother Family History - Medical: - Social History Living Situations: home Abuse History: No History of abuse Psych History: Hx of Anxiety, Hx of Depression Smoking Status: Never smoker Have you smoked in the past 12 months: No Do you dip or chew tobacco: No Alcohol Use: none Drug Use: none - Immunizations Immunizations Up to Date: Yes Hx Pneumococcal Vaccination: Yes History of Influenza Vaccine: More Information Required to Determine Review Of Systems (GEN) - Review of Systems Generalized/Overall Review: Present: No Symptoms Reported - poor historian due to lethargy Allergies/Adverse Reactions: Allergies Allergy/AdvReac Type Severity Reaction Status Date / Time ciprofloxacin Allergy Intermediate BRON[place]AS Verified 04/14/17 15:34 M codeine [Codeine] AdvReac Mild ABD PAIN Verified 04/14/17 15:34 codeine phosphate AdvReac Mild ABD PAIN Verified 04/14/17 15:34 [From Codeine Phosphate Soluble] duloxetine [From Cymbalta] AdvReac Other Verified 04/14/17 15:34 mirtazapine AdvReac Other Verified 04/14/17 15:34 Home Medications: HOME MEDICATIONS ALPRAZolam [Xanax] 2 mg PO TID PRN 03/05/17 [Last Taken Unknown] Acetaminophen 650 mg PO Q6H 03/05/17 [Last Taken Unknown] Albuterol Sulfate [Ventolin HFA] 2 puff IH Q6H 03/05/17 [Last Taken Unknown] Aspirin [Aspirin EC] 81 mg PO DAILY 03/05/17 [Last Taken Unknown] Bisacodyl [Dulcolax] 5 mg PO DAILY 03/05/17 [Last Taken Unknown] Calcium Carbonate 600 mg PO DAILY 03/05/17 [Last Taken Unknown] Calcium Carbonate [Antacid Extra Strength] 750 mg PO BID 03/05/17 [Last Taken Unknown] Cetirizine HCl [Zyrtec] 10 mg PO DAILY 03/05/17 [Last Taken Unknown] Cholecalciferol (Vitamin D3) [Vitamin D3] 1,000 unit PO DAILY 03/05/17 [Last Taken Unknown] Clotrimazole/Betamethasone Dip [Clotrimazole-Betamethasone Crm] 1 appl TP BID [Last Taken Unknown] Denosumab [Prolia] 60 mg SQ Q6M 03/05/17 [Last Taken Unknown] Folic Acid 1 mg PO DAILY 03/05/17 [Last Taken Unknown] Ibuprofen 200 mg PO Q6H PRN 03/05/17 [Last Taken Unknown] Lamotrigine [Lamictal] 100 mg PO DAILY 03/05/17 [Last Taken Unknown] Levothyroxine Sodium [Synthroid] 25 mcg PO DAILY 03/05/17 [Last Taken Unknown] Losartan Potassium [Cozaar] 25 mg PO DAILY 03/05/17 [Last Taken Unknown] Magnesium 250 mg PO TID 03/05/17 [Last Taken Unknown] Methotrexate Sodium [Methotrexate] 3 tab PO BID 03/05/17 [Last Taken Unknown] Metoprolol Tartrate [Lopressor] 25 mg PO BID 03/05/17 [Last Taken Unknown] Multivitamin [One Daily Multivitamin] 1 each PO DAILY 03/05/17 [Last Taken Unknown] Naltrexone HCl [ReVia] 50 mg PO DAILY 03/05/17 [Last Taken Unknown] Omeprazole 20 mg PO DAILY 03/05/17 [Last Taken Unknown] Oxybutynin Chloride [Ditropan Xl] 5 mg PO HS 03/05/17 [Last Taken Unknown] QUEtiapine FUMARATE [Seroquel] 25 mg PO HS 03/05/17 [Last Taken Unknown] Simvastatin [Zocor] 40 mg PO HS 03/05/17 [Last Taken Unknown] Topiramate [Topamax] 25 mg PO HS 03/05/17 [Last Taken Unknown] Trolamine Salicylate [Aspercreme] 1 appl TP QID 03/05/17 [Last Taken Unknown] Vitamin E 1,000 unit PO DAILY 03/05/17 [Last Taken Unknown] risperiDONE [Risperdal] 4 mg PO HS 03/05/17 [Last Taken Unknown] Polyethylene Glycol 3350 [Miralax] 17 gm PO DAILY btl 03/08/17 [Last Taken Unknown] Alendronate Sodium [Fosamax] 70 mg PO Q7D 04/14/17 [Last Taken Unknown] Cyclobenzaprine HCl [Flexeril] 10 mg PO TID PRN 04/14/17 [Last Taken Unknown] Furosemide [Lasix] 40 mg PO DAILY 04/14/17 [Last Taken Unknown] Exam - Exam Vital Signs: Vital Signs - Last Taken Selected Entries 04/14/17 04/14/17 04/14/17 15:05 16:02 17:12 Temperature 36.8 C Temperature Temporal Artery Source Scan Pulse Rate Pulse Rhythm Pulse Strength Respiratory 17 17 15 Rate Respiratory Effort Respiratory Pattern Blood Pressure Blood Pressure Position O2 Sat by Pulse Oximetry Oxygen Delivery Method 04/14/17 18:00 Temperature Temperature Source Pulse Rate 83 Pulse Rhythm Regular Pulse Strength Normal Respiratory 25 H Rate Respiratory Normal Effort Respiratory Normal Pattern Blood Pressure 112/82 Blood Pressure Supine Position O2 Sat by Pulse 95 Oximetry Oxygen Delivery Room Air Method Constitutional: Present: Cooperative, Well developed, Well nourished, No distress, Lethargic ENT Exam: Present: normal ENT inspection Eye Exam: bilateral eye: normal inspection, PERRL, EOMI Neck: Present: normal inspection Back Exam: Present: normal inspection Respiratory: Present: normal breath sounds, no respiratory distress Cardiovascular/Chest: Present: regular rate, rhythm, no murmur Abdomen: Present: Normal bowel sounds, soft, nontender, nondistended, no rebound tenderness, no hepatospenomegaly, no masses Extremity: Present: normal inspection, no pedal edema Skin Exam: Present: no cyanosis, cool/dry Neurologic: Present: other - lethargic Eye contact: Present: cooperative Diagnostic Studies: Laboratory Results WBC 5.0 K/mm3 (4.0-10.5) 04/14/17 10:45 RBC 3.55 M/mm3 (4.2-5.4) L 04/14/17 10:45 Hgb 11.4 gm/dL (12.5-16.0) L 04/14/17 10:45 Hct 34.1 % (37.0-47.0) L 04/14/17 10:45 MCV 96.1 fl (78-100) 04/14/17 10:45 MCH 32.1 pg (27-31) H 04/14/17 10:45 MCHC 33.4 g/dl (32-36) 04/14/17 10:45 RDW 14.0 % (11.5-14.0) 04/14/17 10:45 Plt Count 280 K/mm3 (150-450) 04/14/17 10:45 MPV 8.8 fl (6.0-9.5) 04/14/17 10:45 Immature Gran % (Auto) 0.20 % (0.001-0.429) 04/14/17 10:45 Immature Gran # (Auto) 0.01 K/mm3 (0.000-0.0310) 04/14/17 10:45 Neutrophils % 68.2 % (42-75.0) 04/14/17 10:45 Lymphocytes % 23.8 % (20-51) 04/14/17 10:45 Monocytes % 5.0 % (0.0-9) 04/14/17 10:45 Eosinophils % 2.4 % (0.0-3.0) 04/14/17 10:45 Basophils % 0.4 % (0.0-1.0) 04/14/17 10:45 Nucleated RBC % 0.0 k/mm3 (0-1) 04/14/17 10:45 Neutrophils # 3.4 K/mm3 (1.3-6.0) 04/14/17 10:45 Lymphocytes # 1.2 k/mm3 (1.5-3.5) L 04/14/17 10:45 Monocytes # 0.3 k/mm3 (0.0-1.0) 04/14/17 10:45 Eosinophils # 0.1 k/mm3 (0.0-0.7) 04/14/17 10:45 Absolute Basophils 0.0 k/mm3 (0.0-0.1) 04/14/17 10:45 pCO2 35.1 mmHg (32.0-45.0) 04/14/17 14:06 pO2 79.4 mmHg (83.0-108.0) L 04/14/17 14:06 HCO3 20.5 mmol/L (21.0-28.0) L 04/14/17 14:06 Total CO2 21.6 mmol/L (19.0-24.0) 04/14/17 14:06 Base Excess -3.9 mmol/L (-2.0-3.0) L 04/14/17 14:06 ABG pH 7.39 (7.35-7.45) 04/14/17 14:06 ABG O2 Sat (Measured) 95.7 % (94.0-98.0) 04/14/17 14:06 Sodium 138 mmol/L (132-142) 04/14/17 10:45 Plasma Sodium 138 mmol/L (130-142) 04/14/17 10:45 Potassium 4.2 mmol/L (3.4-4.6) 04/14/17 10:45 Chloride 103 mmol/L (97-106) 04/14/17 10:45 Carbon Dioxide 25.5 mmol/L (24-32.6) 04/14/17 10:45 Anion Gap 13.7 mmol/L (6.8-13.8) 04/14/17 10:45 BUN 24 mg/dL (3-23) H D 04/14/17 10:45 Creatinine 1.23 mg/dL (0.4-1.4) 04/14/17 10:45 Est GFR (Non-Af Amer) 45 mL/min (60-130) L D 04/14/17 10:45 BUN/Creatinine Ratio 19.5 (9.0-21.6) 04/14/17 10:45 Random Glucose 127 mg/dL (70-110) H 04/14/17 10:45 Lactic Acid, Venous 1.0 mmol/L (0.4-1.9) 04/14/17 10:45 Calcium 9.8 mg/dL (7.9-10.9) 04/14/17 10:45 Calcium Adj for Albumin 9.8 mg/dL (8.4-10.2) 04/14/17 10:45 Total Bilirubin 0.5 mg/dL (0.0-1.1) 04/14/17 10:45 AST 17 U/L (0-48) 04/14/17 10:45 ALT 26 U/L (19-67) 04/14/17 10:45 Alkaline Phosphatase 91 U/L (50-170) 04/14/17 10:45 Creatine Kinase 136 U/L (0-259) 04/14/17 10:45 Troponin I Less than 0.017 ng/ml (0.00-0.10) 04/14/17 10:45 Total Protein 6.8 gm/dL (6.2-8.2) 04/14/17 10:45 Albumin 3.6 gm/dl (3.4-5.0) 04/14/17 10:45 TSH 6.231 uIU/mL (0.358-3.74) H 04/14/17 10:45 Urine Color Yellow 04/14/17 10:27 Urine Appearance Clear 04/14/17 10:27 Urine pH 6.0 pH (5.0-7.0) 04/14/17 10:27 Ur Specific [place] 1.020 SP.GR. (1.005-1.010) 04/14/17 10:27 Urine Protein Negative mg/dL (NEGATIVE) 04/14/17 10:27 Urine Glucose (UA) Negative mg/dL (NEGATIVE) 04/14/17 10:27 Urine Ketones Negative mg/dL (NEGATIVE) 04/14/17 10:27 Urine Blood Negative /ul (NEGATIVE) 04/14/17 10:27 Urine Nitrate Negative (NEGATIVE) 04/14/17 10:27 Urine Bilirubin Negative mg/dl (NEGATIVE) 04/14/17 10:27 Urine Urobilinogen Normal EU/dl (NORMAL) 04/14/17 10:27 Ur Leukocyte Esterase Negative /ul (NEGATIVE) 04/14/17 10:27 Urine RBC None seen /hpf (0-5) 04/14/17 10:27 Urine WBC None seen /hpf (0-5) 04/14/17 10:27 Ur Epithelial Cells None seen /hpf (0-5) 04/14/17 10:27 Urine Bacteria None seen (NONE) 04/14/17 10:27 Urine Culture Comments Culture to follow 04/14/17 10:27 Urine Opiates Screen Negative (NEGATIVE) 04/14/17 10:27 Barbiturate Screen Negative (NEGATIVE) 04/14/17 10:27 Ur Phencyclidine Scrn Negative (NEGATIVE) 04/14/17 10:27 Urine Amphetamine Negative (NEGATIVE) 04/14/17 10:27 U Benzodiazepines Scrn Negative (NEGATIVE) 04/14/17 10:27 Urine Cocaine Screen Negative (NEGATIVE) 04/14/17 10:27 Urine Marijuana (THC) Negative (NEGATIVE) 04/14/17 10:27 Ethyl Alcohol Less than 3.0 mg/dL (0.0-10.0) 04/14/17 10:45 Assessment/Plan - Narrative Narrative: Adjust medications. Monitor in SCU. Avoid topamax in the future. Estimate at least one midnight stay. - Assessment/Plan (1) Migraine Problem: Acute Qualifiers: Migraine type: without aura Status migrainosus presence: without status migrainosus Intractability: not intractable Qualified Code(s): G43.009 - Migraine without aura, not intractable, without status migrainosus (2) Bipolar 1 disorder Problem: Chronic (3) GERD (gastroesophageal reflux disease) Problem: Chronic Qualifiers: Esophagitis presence: without esophagitis Qualified Code(s): K21.9 - Gastro -esophageal reflux disease without esophagitis (4) Osteoporosis Problem: Chronic Qualifiers: Osteoporosis type: unspecified Presence of current pathological fracture: without current pathological fracture Qualified Code(s): M81.0 - Age-related osteoporosis without current pathological fracture (5) Low back pain Problem: Chronic Qualifiers: Chronicity: chronic Back pain laterality: midline Sciatica presence: without sciatica Qualified Code(s): M54.5 - Low back pain; G89.29 - Other chronic pain (6) Altered mental status, unspecified Problem: Acute Qualifiers: Altered mental status type: unspecified Qualified Code(s): R41.82 - Altered mental status, unspecified (7) Hallucinations Problem: Acute (8) Diabetes Problem: Chronic Qualifiers: Diabetes mellitus type: type 2 Diabetes mellitus complication status: with unspecified complications Diabetes mellitus terminal gauger supervisor insulin use: unspecified detention insulin use status Qualified Code(s): E11.8 - Type 2 diabetes mellitus with unspecified complications (9) HLD (hyperlipidemia) Problem: Chronic Qualifiers: Qualified Code(s): E78.5 - Hyperlipidemia, unspecified (10) HTN (hypertension) Problem: Chronic Qualifiers: Hypertension type: essential hypertension
[2017-04-14] MEDS ORDERED: ENOXAPARIN SODIUM 40 MG/0.4 ML SYRG SC SCH (19:00)
[2017-04-14] MEDS: METOPROLOL TARTRATE 25 MG TABLET PO SCH (20:04)
[2017-04-14] MEDS: CLOTRIMAZOLE/BETAMET DIPROP 15 APPL TUBE TP SCH (20:05)
[2017-04-14] MEDS: CALCIUM CARBONATE 500 MG TAB.CHEW PO SCH (20:10)
[2017-04-14] MEDS: ALBUTEROL SULFATE 2.5 MG/3 ML VIAL.NEB IH SCH (20:30)
[2017-04-14] MEDS ORDERED: SIMVASTATIN 40 MG TABLET PO SCH (21:00)
[2017-04-15] MEDS: ACETAMINOPHEN 325 MG TABLET PO SCH ×3 (00:07→11:35)
[2017-04-15] MEDS: ALBUTEROL SULFATE 2.5 MG/3 ML VIAL.NEB IH SCH ×2 (00:46→06:03)
[2017-04-15] MEDS: DEXTROSE 5%-0.5 NORMAL SALINE 1,000 ML IV PRN (04:14)
[2017-04-15 06:10] LABS: Hematocrit 32.8 % (37.0-47.0); Hemoglobin 10.7 gm/dL (12.5-16.0); Mean Cell Volume 99.4 fl (78-100); Mean Corpuscular Hemoglobin 32.4 pg (27-31); Mean Corpuscular Hgb Conc 32.6 g/dl (32-36); Mean Platelet Volume 8.7 fl (6.0-9.5); Neutrophil # 4.4 K/mm3 (1.3-6.0); Neutrophil % 73.4 % (42-75.0); Platelet Count 249 K/mm3 (150-450)
[2017-04-15 06:24] LABS: Anion Gap 12.1 mmol/L (6.8-13.8); Calcium * 8.9 mg/dL (7.9-10.9); Carbon Dioxide 27.7 mmol/L (24-32.6); Estimated Creat Clear 43.6; Potassium 3.8 mmol/L (3.4-4.6)
[2017-04-15] MEDS ORDERED: PANTOPRAZOLE SODIUM 20 MG TABLET.DR PO SCH (07:00)
[2017-04-15] MEDS ORDERED: LEVOTHYROXINE SODIUM 25 MCG TABLET PO SCH (07:00)
[2017-04-15] MEDS: METOPROLOL TARTRATE 25 MG TABLET PO SCH (08:52)
[2017-04-15] MEDS: CALCIUM CARBONATE 500 MG TAB.CHEW PO SCH (08:53)
[2017-04-15] MEDS: MAGNESIUM OXIDE 400 MG TABLET PO SCH ×2 (08:53→14:18)
[2017-04-15] MEDS: CLOTRIMAZOLE/BETAMET DIPROP 15 APPL TUBE TP SCH (08:53)
[2017-04-15] MEDS: TROLAMINE SALICYLATE 90 APPL TUBE TP SCH ×2 (08:54→14:18)
[2017-04-15] MEDS ORDERED: LOSARTAN POTASSIUM 50 MG TABLET PO SCH (09:00)
[2017-04-15] MEDS ORDERED: CHOLECALCIFEROL 1,000 UNIT CAPSULE PO SCH (09:00)
[2017-04-15] MEDS ORDERED: MULTIVITAMINS 1 CAP CAPSULE PO SCH (09:00)
[2017-04-15] MEDS ORDERED: VITAMIN E 1000 UNIT PO SCH (09:00)
[2017-04-15] MEDS ORDERED: FOLIC ACID 1 MG TABLET PO SCH (09:00)
[2017-04-15] MEDS ORDERED: ASPIRIN 81 MG TABLET.DR PO SCH (09:00)
[2017-04-15] MEDS ORDERED: NALTREXONE HCL 50 MG TABLET PO SCH (09:00)
[2017-04-15] MEDS ORDERED: BISACODYL 5 MG TABLET.DR PO SCH (09:00)
[2017-04-15 13:18] LABS: Iron 26 mcg/dL (35-120); Transferrin Sat. (% Sat.) 13 % (15-55)
--- NOTE | 2017-04-15 14:00 | DS ---
(1) Altered mental status, unspecified Problem: Acute Qualifiers: Altered mental status type: unspecified Qualified Code(s): R41.82 - Altered mental status, unspecified (2) Anemia Problem: Chronic Qualifiers: Anemia type: unspecified type Qualified Code(s): D64.9 - Anemia, unspecified (3) Osteoporosis Diagnosis(s): D/C alendronate. Patient is on Denosumab. Problem: Chronic Qualifiers: Osteoporosis type: unspecified Presence of current pathological fracture: unspecified Qualified Code(s): M81.0 - Age-related osteoporosis without current pathological fracture (4) Bipolar affective Problem: Chronic Qualifiers: Current episode severity: unspecified Description of Stay: DATE OF ADMISSION: 04/14/2017. DATE OF DISCHARGE: 04/15/2017. DIAGNOSTICS: CT HEAD W/O:04/14/17. CT ABD/PELVIS W/O: 04/14/17. DISCHARGE SUMMARY: Janelle Hendricks is a 71 yr old WF with a H/O HTN, HLD, GERD, RA, hypothyroidism, osteoporosis, anxiety/depression, bipolar disease who was admitted into observation on 04/14/17 because of increasing confusion and lethargy. She was apparently started on topiramate for a history of migraines which occur occasionally and she continued to have the above symptoms after her topiramate was decreased from 50 mg PO BID to 25 mg PO HS. Patient and her daughter are poor historians. She received IV fluids with improvement in her symptoms. She was able to ambulate well the next day. A CT of her head and CT of abdomen/pelvis done in the ER were unremarkable. Several of her medications were adjusted at the time of her discharge. She is being discharged in a stable condition with a follow-up with PCP and home health care. More than 40 minutes was spent with the patient discussing plan of care, treatment options, discharging the patient which included reconciliation of medications, preparing and dictating discharge summary. Procedures Performed: none Results and Findings: Laboratory Tests 04/14/17 04/15/17 10:45 06:00 WBC 5.0 6.0 Hgb 11.4 L 10.7 L Hct 34.1 L 32.8 L Plt Count 280 249 04/14/17 04/15/17 10:45 06:00 Plasma Sodium 138 144 H Potassium 4.2 3.8 Chloride 103 107 H Carbon Dioxide 25.5 27.7 BUN 24 H D 15 Creatinine 1.23 1.00 Est GFR (Non-Af Amer) 45 L D 58 Random Glucose 127 H 135 H 04/15/17 06:00 Iron 26 L TIBC 198 L Transferrin % Sat 13 L Vitamin B12 716 04/14/17 10:[address] head W/O: 04/14/2017: Impression: No acute intracranial hemorrhage or mass effect. Chronic microvascular ischemic white matter disease present. Benign intracranial calcifications present. Hyperostosis frontalis internus. There is a possible small area of exostosis at the outer table of the RT frontal bone new the vertex measuring [address] abdomen/pelvis W/O: 04/14/2017: Impression: No obvious evidence of urolithiasis/obstructive uropathy. Severe coronary artery calcifications noted in the distribution of the LAD artery. Calcified hepatic and splenic granulomas present. Abnormal segmental intrahepatic biliary ductal dilatation in the posterior superior and medial right hepatic lobe. Changes from cholecystectomy. Stool retention present. Sigmoid colon diverticulosis without diverticulitis. Indwelling Fole[place] catheter present with internal air-fluid level; correlate for instrumentation versus emphysematous cystitis. Small fat-containing umbilical hernia; DJD. Changes from L3 kyphoplasty. Changes from lower thoracic/upper lumbar posterior fusion. Discharge Disposition: Home self care Disposition: [facility] Home Health Condition: Undetermined Discharge Activity: Activity as tolerated Discharge Diet: Low fat/chol, High Fiber Referrals: Michael Small MD [Primary Care Provider] - Problem Oriented Discharge Instructions to Patient/Family: Confusion Additional Patient Instructions (free text): TCM appointment for f/u. Call [phone] when discharged. [facility] new at discharge. Please fax orders and face to face and call report at discharge. NEW/CHANGED MEDICATIONS: Vitamin D3 -1000 to 2000 units daily with food. levothyroxine 25 mcg to 50 mcg po daily. [ can double up on 25 mcg till gone]. decrease furosemide from 40 to 20 mg PO daily. decrease flexeril 10 mg PO TID PRN to 10 mg PO HS prn. MEDS DISCONTINUED: Alendronate as patient is on prolia. ibuprofen. alton.corbonate 600. Vitamin E. Prescriptions (Any new or edited meds): Cholecalciferol (Vitamin D3) [Vitamin D3] 2,000 unit PO DAILY #100 capsule Cyclobenzaprine HCl [Flexeril] 10 mg PO HS PRN #.1 tablet PRN Reason: MUSCLE SPASMS Furosemide [Lasix] 20 mg PO DAILY #.1 tablet Levothyroxine Sodium [Levo-T] 50 mcg PO DAILY@0630 #60 tablet Complete Home Medications List: Complete Home Medication List: ALPRAZolam [Xanax] 2 mg PO TID PRN 03/05/17 Acetaminophen 650 mg PO Q6H 03/05/17 Albuterol Sulfate [Ventolin HFA] 2 puff IH Q6H 03/05/17 Aspirin [Aspirin EC] 81 mg PO DAILY 03/05/17 Bisacodyl [Dulcolax] 5 mg PO DAILY 03/05/17 Calcium Carbonate [Antacid Extra Strength] 750 mg PO BID 03/05/17 Cetirizine HCl [Zyrtec] 10 mg PO DAILY 03/05/17 Clotrimazole/Betamethasone Dip [Clotrimazole-Betamethasone Crm] 1 appl TP BID Denosumab [Prolia] 60 mg SQ Q6M 03/05/17 Folic Acid 1 mg PO DAILY 03/05/17 Lamotrigine [Lamictal] 100 mg PO DAILY 03/05/17 Losartan Potassium [Cozaar] 25 mg PO DAILY 03/05/17 Magnesium 250 mg PO TID 03/05/17 Methotrexate Sodium [Methotrexate] 3 tab PO BID 03/05/17 Metoprolol Tartrate [Lopressor] 25 mg PO BID 03/05/17 Multivitamin [One Daily Multivitamin] 1 each PO DAILY 03/05/17 Naltrexone HCl [ReVia] 50 mg PO DAILY 03/05/17 Omeprazole 20 mg PO DAILY 03/05/17 Oxybutynin Chloride [Ditropan Xl] 5 mg PO HS 03/05/17 QUEtiapine FUMARATE [Seroquel] 25 mg PO HS 03/05/17 Simvastatin [Zocor] 40 mg PO HS 03/05/17 Trolamine Salicylate [Aspercreme] 1 appl TP QID 03/05/17 risperiDONE [Risperdal] 4 mg PO HS 03/05/17 Polyethylene Glycol 3350 [Miralax] 17 gm PO DAILY btl 03/08/17 Cholecalciferol (Vitamin D3) [Vitamin D3] 2,000 unit PO DAILY #100 capsule 04/15 Cyclobenzaprine HCl [Flexeril] 10 mg PO HS PRN #.1 tablet 04/15/17 Furosemide [Lasix] 20 mg PO DAILY #.1 tablet 04/15/17 Levothyroxine Sodium [Levo-T] 50 mcg PO DAILY@0630 #60 tablet 04/15/17
[2017-04-15 14:19] VITALS: BP 112/84
[2017-04-21] MEDS ORDERED: ALENDRONATE SODIUM 70 MG TABLET PO SCH (06:00)
[2017-10-11] MEDS ORDERED: DENOSUMAB 60 MG/ML SC SCH (06:00)
== END 2017-04-15 15:00 | disposition home health service (06) ==
LOC: ER 10:10 → SCU 14:36
PROVIDERS: ADMIT Allergy & Immunology; ATTEND Allergy & Immunology
DX: R41.82 Altered mental status, unspecified (principal); G43.009 Migraine without aura, not intractable, without status migrainosus; E66.01 Morbid (severe) obesity due to excess calories; E11.8 Type 2 diabetes mellitus with unspecified complications; I10 Essential (primary) hypertension; M54.5 Low back pain; D64.9 Anemia, unspecified; M81.0 Age-related osteoporosis without current pathological fracture; F31.9 Bipolar disorder, unspecified; E03.9 Hypothyroidism, unspecified; F41.9 Anxiety disorder, unspecified
CPT/HCPCS: 36415; 36600; 51702; 70450; 71010; 74176; 80048; 80053; 80307; 81001; 82550; 82607; 82803; 83540; 83550; 83605; 84443; 84484; 85025; 87040; 87086; 93005; 94640; 94762; 96372; 99285; G0378; G0481

== ENCOUNTER 2017-06-08 11:40 | Emergency (ER) | payer MEDICARE, MEDICAID ==
[2017-06-08] MEDS ORDERED: KETOROLAC TROMETHAMINE 60 MG/2 ML VIAL IM ONE ×2 (11:55→12:02)
--- NOTE | 2017-06-08 12:27 | ERNOTE ---
Lower Extremity HPI - General Time Seen by Provider: 06/08/17 11:53 Source: patient Exam Limitations: no limitations - Immun/Allergies/Home Medications Immunizations: IMMUNIZATION HX Immunizations Up to Date Yes History of Influenza Vaccine More Information Required Hx Pneumococcal Vaccination Yes Allergies/Adverse Reactions: Allergies Allergy/AdvReac Type Severity Reaction Status Date / Time ciprofloxacin Allergy Intermediate BRONCHOSPAS Verified 06/08/17 11:59 M codeine [Codeine] AdvReac Mild ABD PAIN Verified 06/08/17 11:59 codeine phosphate AdvReac Mild ABD PAIN Verified 06/08/17 11:59 [From Codeine Phosphate Soluble] duloxetine [From Cymbalta] AdvReac Other Verified 06/08/17 11:59 mirtazapine AdvReac Other Verified 06/08/17 11:59 Home Medications: HOME MEDICATIONS ALPRAZolam [Xanax] 2 mg PO TID PRN 03/05/17 [Last Taken Unknown] Acetaminophen 650 mg PO Q6H 03/05/17 [Last Taken Unknown] Albuterol Sulfate [Ventolin HFA] 2 puff IH Q6H 03/05/17 [Last Taken Unknown] Aspirin [Aspirin EC] 81 mg PO DAILY 03/05/17 [Last Taken Unknown] Bisacodyl [Dulcolax] 5 mg PO DAILY 03/05/17 [Last Taken Unknown] Calcium Carbonate [Antacid Extra Strength] 750 mg PO BID 03/05/17 [Last Taken Unknown] Cetirizine HCl [Zyrtec] 10 mg PO DAILY 03/05/17 [Last Taken Unknown] Clotrimazole/Betamethasone Dip [Clotrimazole-Betamethasone Crm] 1 appl TP BID [Last Taken Unknown] Denosumab [Prolia] 60 mg SQ Q6M 03/05/17 [Last Taken Unknown] Folic Acid 1 mg PO DAILY 03/05/17 [Last Taken Unknown] Lamotrigine [Lamictal] 100 mg PO DAILY 03/05/17 [Last Taken Unknown] Losartan Potassium [Cozaar] 25 mg PO DAILY 03/05/17 [Last Taken Unknown] Magnesium 250 mg PO TID 03/05/17 [Last Taken Unknown] Methotrexate Sodium [Methotrexate] 3 tab PO BID 03/05/17 [Last Taken Unknown] Metoprolol Tartrate [Lopressor] 25 mg PO BID 03/05/17 [Last Taken Unknown] Multivitamin [One Daily Multivitamin] 1 each PO DAILY 03/05/17 [Last Taken Unknown] Naltrexone HCl [ReVia] 50 mg PO DAILY 03/05/17 [Last Taken Unknown] Omeprazole 20 mg PO DAILY 03/05/17 [Last Taken Unknown] Oxybutynin Chloride [Ditropan Xl] 5 mg PO HS 03/05/17 [Last Taken Unknown] QUEtiapine FUMARATE [Seroquel] 25 mg PO HS 03/05/17 [Last Taken Unknown] Simvastatin [Zocor] 40 mg PO HS 03/05/17 [Last Taken Unknown] Trolamine Salicylate [Aspercreme] 1 appl TP QID 03/05/17 [Last Taken Unknown] risperiDONE [Risperdal] 4 mg PO HS 03/05/17 [Last Taken Unknown] Polyethylene Glycol 3350 [Miralax] 17 gm PO DAILY btl 03/08/17 [Last Taken Unknown] Cholecalciferol (Vitamin D3) [Vitamin D3] 2,000 unit PO DAILY #100 capsule 04/15 [Last Taken Unknown] Cyclobenzaprine HCl [Flexeril] 10 mg PO HS PRN #.1 tablet 04/15/17 [Last Taken Unknown] Furosemide [Lasix] 20 mg PO DAILY #.1 tablet 04/15/17 [Last Taken Unknown] Levothyroxine Sodium [Levo-T] 50 mcg PO DAILY@0630 #60 tablet 04/15/17 [Last Taken Unknown] - History of Present Illness Narrative: patient comes in for persistent right knee pain more than usual to the point where the patient is unable to ambulate secondary to pain. 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 There has been no new trauma to the right knee however she has had excessive amounts of pain today to the point where she cannot ambulate. Review of Systems - Review of Systems Constitutional: Present: no symptoms reported, decreased activity level ENT: Present: no symptoms reported Respiratory: Present: no symptoms reported Cardiology: Present: no symptoms reported Gastrointestinal/Abdominal: Present: no symptoms reported Genitourinary: Present: no symptoms reported Musculoskeletal: Present: See HPI Skin: Present: no symptoms reported Neurological: Present: no symptoms reported - Patient's Past Medical History Patient History - Medical: Anxiety, Bipolar, Diabetes Type 2, Depression, GERD, Headache, Hypothyroidism, Osteoporosis, UTI'S Patient History - Cardiac/Respiratory: Hypertension, Hyperlipidemia, TIA Patient History - Cancer: No Hx of Cancer Patient History - Surgical Procedures: Back Surgery Patient History - Other: None LMP (females 10-50): Menopausal - Family History Mother Family History - Medical: Family History - Cardiac/Respiratory: CHF, Myocardial Infarction Brother Family History - Medical: - Social History Living Situations: home Abuse History: No History of abuse Psych History: Hx of Anxiety, Hx of Depression Have you smoked in the past 12 months: No Alcohol Use: none Drug Use: none - Immunizations Immunizations Up to Date: Yes Hx Pneumococcal Vaccination: Yes History of Influenza Vaccine: More Information Required to Determine Physical Exam - Physical Exam General Appearance: Present: wd/wn, alert, no apparent distress - patient has morbid obesity which may contribute to her knee pain Head Exam: Present: normal inspection Respiratory: Present: no respiratory distress, normal breath sounds, no accessory muscle use, chest nontender, lungs clear Cardiovascular/Chest: Present: regular rate, rhythm, no murmur, normal peripheral pulses Extremity Exam: Present: normal range of motion, other - patient has normal range of motion of extremities however on inspection the right knee has a small quarter sized old ecchymosis on it. Palpation does not reveal any crepitus or deformity or tenderness. I do not feel the patient's Kuhn cyst due to the obesity of the patient's right knee. She states she is unable to walk due to pain. Neurological Exam: Present: alert, oriented, normal mood/affect, no motor/ sensory deficits ED Progress - Vital Signs Patient's Vital Signs:: I have reviewed the patient's vital signs. 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
[2017-06-08 13:11] VITALS: BP 90/53
== END 2017-06-08 13:14 | disposition home or self-care (01) ==
LOC: ER 11:40
DX: M25.561 Pain in right knee (principal); Z87.440 Personal history of urinary (tract) infections

== ENCOUNTER 2017-08-12 10:13 | Emergency (ER) | payer MEDICARE, MEDICAID ==
[2017-08-12 10:55] LABS: Urine Appearance Cloudy; Urine Bacteria 3+; Urine Bilirubin Negative (NEGATIVE); Urine Blood 25 /ul (NEGATIVE); Urine Color Yellow; Urine Ketone 5 mg/dL (NEGATIVE); Urine Nitrite Positive (NEGATIVE); Urine Protein 30 mg/dL (NEGATIVE); Urine RBC 0-5 /hpf (0-5); Urine Specific Gravity 1.015 SP.GR. (1.005-1.010); Urine Urobilinogen Normal (NORMAL); Urine WBC 25-50 /hpf (0-5); Urine pH 5.5 pH (5.0-7.0)
[2017-08-12 10:58] LABS: Hematocrit 36.8 % (37.0-47.0); Hemoglobin 12.2 gm/dL (12.5-16.0); Mean Cell Volume 96.6 fl (78-100); Mean Corpuscular Hgb Conc 33.2 g/dl (32-36); Mean Platelet Volume 8.3 fl (6.0-9.5); Neutrophil # 9.2 K/mm3 (1.3-6.0); Neutrophil % 80.7 % (42-75.0); Platelet Count 292 K/mm3 (150-450); Red Blood Count 3.81 M/mm3 (4.2-5.4); Red Cell Distribution Width 13.5 % (11.5-14.0); White Blood Count 11.4 K/mm3 (4.0-10.5)
[2017-08-12] MEDS ORDERED: NORMAL SALINE 1,000 ML IV ONE (11:08)
[2017-08-12 11:09] LABS: Cocaine Ur Negative (NEGATIVE); Urine Barbiturate Negative (NEGATIVE); Urine Opiates Negative (NEGATIVE); Urine PCP Negative (NEGATIVE); Urine THC Negative (NEGATIVE)
[2017-08-12 11:10] LABS: Urine Benzodiazepines Positive (NEGATIVE)
[2017-08-12 11:22] LABS: ALT 28 U/L (19-67); AST 20 U/L (0-48); Acetaminophen * 15.5 mcg/mL (10.0-30.0); Albumin * 3.6 gm/dl (3.4-5.0); Alkaline Phosphatase * 120 U/L (50-170); Anion Gap 15.8 mmol/L (6.8-13.8); BUN/Creatinine Ratio 18.9 (9.0-21.6); Bilirubin, Total 0.3 mg/dL (0.0-1.1); Blood Urea Nitrogen 21 mg/dL (3-23); Carbon Dioxide 26.5 mmol/L (24-32.6); Chloride 103 mmol/L (97-106); Glucose * 136 mg/dL (70-110); Potassium 3.3 mmol/L (3.4-4.6); Salicylate Less than 2.8 mg/dL (2.8-20.0); Sodium 142 mmol/L (132-142); Total Protein 7.6 gm/dL (6.2-8.2); Troponin I Less than 0.017 ng/ml (0.00-0.10)
--- NOTE | 2017-08-12 12:47 | ERNOTE ---
Neuro HPI ER Record Date of Service: 08/12/17 Presenting Symptoms: confusion Time Seen by Provider: 08/12/17 10:27 Source: patient, family Exam Limitations: no limitations Immunizations: IMMUNIZATION HX Immunizations Up to Date Yes History of Influenza Vaccine Yes Hx Pneumococcal Vaccination Yes Allergies/Adverse Reactions: Allergies Allergy/AdvReac Type Severity Reaction Status Date / Time ciprofloxacin Allergy Intermediate BRONCHOSPAS Verified 08/12/17 10:25 M codeine [Codeine] AdvReac Mild ABD PAIN Verified 08/12/17 10:25 codeine phosphate AdvReac Mild ABD PAIN Verified 08/12/17 10:25 [From Codeine Phosphate Soluble] duloxetine [From Cymbalta] AdvReac Other Verified 08/12/17 10:25 mirtazapine AdvReac Other Verified 08/12/17 10:25 Home Medications: HOME MEDICATIONS ALPRAZolam [Xanax] 2 mg PO TID PRN 03/05/17 [Last Taken Unknown] Acetaminophen 650 mg PO Q6H 03/05/17 [Last Taken Unknown] Albuterol Sulfate [Ventolin HFA] 2 puff IH Q6H 03/05/17 [Last Taken Unknown] Aspirin [Aspirin EC] 81 mg PO DAILY 03/05/17 [Last Taken Unknown] Bisacodyl [Dulcolax] 5 mg PO DAILY 03/05/17 [Last Taken Unknown] Calcium Carbonate [Antacid Extra Strength] 750 mg PO BID 03/05/17 [Last Taken Unknown] Cetirizine HCl [Zyrtec] 10 mg PO DAILY 03/05/17 [Last Taken Unknown] Clotrimazole/Betamethasone Dip [Clotrimazole-Betamethasone Crm] 1 appl TP BID [Last Taken Unknown] Denosumab [Prolia] 60 mg SQ Q6M 03/05/17 [Last Taken Unknown] Folic Acid 1 mg PO DAILY 03/05/17 [Last Taken Unknown] Lamotrigine [Lamictal] 100 mg PO DAILY 03/05/17 [Last Taken Unknown] Losartan Potassium [Cozaar] 25 mg PO DAILY 03/05/17 [Last Taken Unknown] Magnesium 250 mg PO TID 03/05/17 [Last Taken Unknown] Methotrexate Sodium [Methotrexate] 3 tab PO BID 03/05/17 [Last Taken Unknown] Metoprolol Tartrate [Lopressor] 25 mg PO BID 03/05/17 [Last Taken Unknown] Multivitamin [One Daily Multivitamin] 1 each PO DAILY 03/05/17 [Last Taken Unknown] Naltrexone HCl [ReVia] 50 mg PO DAILY 03/05/17 [Last Taken Unknown] Omeprazole 20 mg PO DAILY 03/05/17 [Last Taken Unknown] Oxybutynin Chloride [Ditropan Xl] 5 mg PO HS 03/05/17 [Last Taken Unknown] QUEtiapine FUMARATE [Seroquel] 25 mg PO HS 03/05/17 [Last Taken Unknown] Simvastatin [Zocor] 40 mg PO HS 03/05/17 [Last Taken Unknown] Trolamine Salicylate [Aspercreme] 1 appl TP QID 03/05/17 [Last Taken Unknown] risperiDONE [Risperdal] 4 mg PO HS 03/05/17 [Last Taken Unknown] Polyethylene Glycol 3350 [Miralax] 17 gm PO DAILY btl 03/08/17 [Last Taken Unknown] Cholecalciferol (Vitamin D3) [Vitamin D3] 2,000 unit PO DAILY #100 capsule 04/15 [Last Taken Unknown] Cyclobenzaprine HCl [Flexeril] 10 mg PO HS PRN #.1 tablet 04/15/17 [Last Taken Unknown] Furosemide [Lasix] 20 mg PO DAILY #.1 tablet 04/15/17 [Last Taken Unknown] Levothyroxine Sodium [Levo-T] 50 mcg PO DAILY@0630 #60 tablet 04/15/17 [Last Taken Unknown] Cefuroxime Axetil [Ceftin] 250 mg PO Q12H #20 tab 08/12/17 [Last Taken Unknown] Potassium Chloride [K-Dur] 20 meq PO DAILY #5 tab 08/12/17 [Last Taken Unknown] - History of Present Illness Narrative: Patient presents with feeling confused. Her daughter relates that she has been confused for 3 days. She tells me that she also feels somewhat confused and can tell that at times she feels confused. She denies other acute symptoms with this. She denies focal N/T/W. She denies acute CP or SOB. No fever. She has back pain and right knee pain that is chronic for her but no acute pains. No falls or head injury. Nothing really makes this better or worse. She has not seen anyone for this in the last few days since onset. No flank pains. Her back pain is chronic for her. Onset: other - 3 days ago Severity: mild - Character of Deficits Associated Symptoms: Denies: fever/chills, headache, fainting, decreased responsiveness, unresponsive Prior Treament: Denies: recently seen Review of Systems - Review of Systems Constitutional: Absent: chills Respiratory: Absent: shortness of breath Cardiology: Absent: chest pain Gastrointestinal/Abdominal: Absent: abdominal pain Neurological: Present: other - no acute focal weakness - Patient's Past Medical History Patient History - Medical: Anxiety, Bipolar, Diabetes Type 2, Depression, GERD, Headache, Hypothyroidism, Osteoporosis, UTI'S Patient History - Cardiac/Respiratory: Hypertension, Hyperlipidemia, TIA Patient History - Cancer: No Hx of Cancer Patient History - Surgical Procedures: Back Surgery Patient History - Other: None LMP (females 10-50): post men - Family History Mother Family History - Medical: Family History - Cardiac/Respiratory: CHF, Myocardial Infarction Brother Family History - Medical: - Social History Living Situations: home Abuse History: No History of abuse Psych History: Hx of Anxiety, Hx of Depression Smoking Status: Never smoker Alcohol Use: none Drug Use: none - Immunizations Immunizations Up to Date: Yes Hx Pneumococcal Vaccination: Yes History of Influenza Vaccine: Yes Physical Exam - Physical Exam General Appearance: Present: alert, no apparent distress Head Exam: Present: normal inspection, no evidence of injury Eye Exam: Normal inspection: bilateral, PERRL: bilateral Ears, Nose, Throat: Present: normal ENT inspection. 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 She knows the month, president, gets the date wrong by one day but knows day of week. No findings of acute stroke' Skin Exam: Present: normal color, warm/dry ED Progress - Results and Orders Patient's Lab Results:: I have reviewed the patient's lab results. - Vital Signs Vital Signs: Vital Signs 08/12/17 08/12/17 10:21 11:55 Temperature 35.9 C L 36.8 C Pulse Rate 118 H 112 H Respiratory 16 18 Rate Blood Pressure 100/64 122/74 O2 Sat by Pulse 96 97 Oximetry - EKG EKG: NSR EKG read: Interp. by me EKG Comments: Sinus tachycardia. Non-specific ST/T wave changes, no STEMI noted. - CT/Ultrasound CT/Ultrasound Narrative: I reviewed head CT official radiology report - Progress/Reassessment Chief Complaint: Altered Mental Status Progress Note-Subjective: 08/12/17 12:44 Patient received IV fluids and IV antibiotics. I offered her admission to the hospital but she declines this and wishes to go home. As her tachycardia has resolved and there is a clear source (urine) I will not sign her out AMA. She understands risks and benefits. No findings of sepsis or toxicity. i discussed warning signs and reasons to return as well as the need for close f/ u. I stressed that if she changed her mind about observation in the hospital she could return at any time. Nursing is calling her family to come pick her up at patient's request to go home. Departure Clinical Impression: UTI (urinary tract infection) - Departure Disposition: Home self-care Condition: Stable Instructions: Urinary Tract Infection, Adult, [id number] Additional Instructions: Rest. Fluids. Antibiotics as directed. Follow-up with your doctor Monday for a re-check. Return if you change your mind about observation, develop fever, weakness or if your condition worsens or changes in any way. Referrals: Michael Small MD [Primary Care Provider] - Prescriptions: Cefuroxime Axetil [Ceftin] 250 mg PO Q12H #20 tab Potassium Chloride [K-Dur] 20 meq PO DAILY #5 tab
[2017-08-12 13:16] VITALS: BP 110/73
== END 2017-08-12 12:34 | disposition home or self-care (01) ==
LOC: ER 10:13
DX: N39.0 Urinary tract infection, site not specified (principal); E11.9 Type 2 diabetes mellitus without complications; K21.9 Gastro-esophageal reflux disease without esophagitis; E03.9 Hypothyroidism, unspecified; M81.0 Age-related osteoporosis without current pathological fracture; Z87.440 Personal history of urinary (tract) infections; I10 Essential (primary) hypertension; E78.5 Hyperlipidemia, unspecified; Z86.73 Personal history of transient ischemic attack (TIA), and cerebral infarction without residual deficits; F41.8 Other specified anxiety disorders
CPT/HCPCS: 36415; 70450; 80053; 80307; 81001; 82140; 84484; 85025; 87086; 93005; 96365; 99284; G0480; G0481

== ENCOUNTER 2017-08-16 07:57 | Inpatient (IN) | payer MEDICARE, MEDICAID ==
--- NOTE | 2017-08-16 08:15 | ERNOTE ---
Neuro HPI ER Record Date of Service: 08/16/17 Presenting Symptoms: weakness, difficulty walking, difficulty standing, falling Time Seen by Provider: 08/16/17 08:08 Source: patient, family Immunizations: IMMUNIZATION HX Immunizations Up to Date Yes History of Influenza Vaccine Yes Hx Pneumococcal Vaccination Yes Allergies/Adverse Reactions: Allergies Allergy/AdvReac Type Severity Reaction Status Date / Time ciprofloxacin Allergy Intermediate BRONCHOSPAS Verified 08/16/17 08:06 M codeine [Codeine] AdvReac Mild ABD PAIN Verified 08/16/17 08:06 codeine phosphate AdvReac Mild ABD PAIN Verified 08/16/17 08:06 [From Codeine Phosphate Soluble] duloxetine [From Cymbalta] AdvReac Other Verified 08/16/17 08:06 mirtazapine AdvReac Other Verified 08/16/17 08:06 Home Medications: HOME MEDICATIONS ALPRAZolam [Xanax] 2 mg PO TID PRN 03/05/17 [Last Taken Unknown] Acetaminophen 650 mg PO Q6H 03/05/17 [Last Taken Unknown] Albuterol Sulfate [Ventolin HFA] 2 puff IH Q6H 03/05/17 [Last Taken Unknown] Aspirin [Aspirin EC] 81 mg PO DAILY 03/05/17 [Last Taken Unknown] Bisacodyl [Dulcolax] 5 mg PO DAILY 03/05/17 [Last Taken Unknown] Calcium Carbonate [Antacid Extra Strength] 750 mg PO BID 03/05/17 [Last Taken Unknown] Clotrimazole/Betamethasone Dip [Clotrimazole-Betamethasone Crm] 1 appl TP BID [Last Taken Unknown] Denosumab [Prolia] 60 mg SQ Q6M 03/05/17 [Last Taken Unknown] Folic Acid 1 mg PO DAILY 03/05/17 [Last Taken Unknown] Lamotrigine [Lamictal] 100 mg PO DAILY 03/05/17 [Last Taken Unknown] Losartan Potassium [Cozaar] 25 mg PO DAILY 03/05/17 [Last Taken Unknown] Magnesium 250 mg PO TID 03/05/17 [Last Taken Unknown] Methotrexate Sodium [Methotrexate] 3 tab PO BID 03/05/17 [Last Taken Unknown] Metoprolol Tartrate [Lopressor] 25 mg PO BID 03/05/17 [Last Taken Unknown] Multivitamin [One Daily Multivitamin] 1 each PO DAILY 03/05/17 [Last Taken Unknown] Naltrexone HCl [ReVia] 50 mg PO DAILY 03/05/17 [Last Taken Unknown] Omeprazole 20 mg PO DAILY 03/05/17 [Last Taken Unknown] Oxybutynin Chloride [Ditropan Xl] 5 mg PO HS 03/05/17 [Last Taken Unknown] QUEtiapine FUMARATE [Seroquel] 25 mg PO HS 03/05/17 [Last Taken Unknown] Simvastatin [Zocor] 40 mg PO HS 03/05/17 [Last Taken Unknown] Trolamine Salicylate [Aspercreme] 1 appl TP QID 03/05/17 [Last Taken Unknown] risperiDONE [Risperdal] 4 mg PO HS 03/05/17 [Last Taken Unknown] Polyethylene Glycol 3350 [Miralax] 17 gm PO DAILY btl 03/08/17 [Last Taken Unknown] Cholecalciferol (Vitamin D3) [Vitamin D3] 2,000 unit PO DAILY #100 capsule 04/15 [Last Taken Unknown] Cyclobenzaprine HCl [Flexeril] 10 mg PO HS PRN #.1 tablet 04/15/17 [Last Taken Unknown] Furosemide [Lasix] 20 mg PO DAILY #.1 tablet 04/15/17 [Last Taken Unknown] - History of Present Illness Narrative: Patient is a 71-year-old female who presents to the emergency room generalized weakness. Patient was seen at the emergency room 2-3 days ago found to having a urinary tract infection. Patient was found to have indications for admission but she refused and was discharged. He is here with her daughter because after her discharge she has been lethargic, falling, stumbling into stuart, with altered mental status. Daughter was able to wake her up yesterday for breakfast but her appetite was poor. Daughter reports that all day yesterday and today she shows just lethargic Onset: other - 2-3 days Context: fall - Character of Deficits New weakness: Present: general (diffuse) Additional Deficits: Present: decrease ability to stand, decrease ability to walk, cannot walk, cannot stand Baseline Cognition: Present: alert, oriented x 4 Baseline Gait: Present: walks w/o assistance Associated Symptoms: Reports: altered mental status Prior Treament: Reports: recently seen, treated by physician, currently on antibiotics Review of Systems - Review of Systems Constitutional: Present: decreased activity level EYE: Present: see HPI ENT: Present: See HPI Respiratory: Present: See HPI Cardiology: Present: See HPI Gastrointestinal/Abdominal: Present: See HPI Skin: Present: See HPI Neurological: Present: See HPI Endocrine: Present: See HPI Hematologic/Lymphatic: Present: See HPI Psych: Present: See HPI - Patient's Past Medical History Patient History - Medical: Anxiety, Bipolar, Diabetes Type 2, Depression, GERD, Headache, Hypothyroidism, Osteoporosis, UTI'S Patient History - Cardiac/Respiratory: Hypertension, Hyperlipidemia, TIA Patient History - Cancer: No Hx of Cancer Patient History - Surgical Procedures: Back Surgery Patient History - Other: None LMP (females 10-50): post men - Family History Mother Family History - Medical: Family History - Cardiac/Respiratory: CHF, Myocardial Infarction Brother Family History - Medical: - Social History Living Situations: home Abuse History: No History of abuse Psych History: Hx of Anxiety, Hx of Depression Smoking Status: Former smoker Alcohol Use: none Drug Use: none - Immunizations Immunizations Up to Date: Yes Hx Pneumococcal Vaccination: Yes History of Influenza Vaccine: Yes Physical Exam - Physical Exam General Appearance: Present: lethargic - she is arousable to sternal rub. She is able to follow commands like raising her hands up to table wiggling her toes and protruding her tongue when asked. Head Exam: Present: normal inspection, no evidence of injury Eye Exam: Normal inspection: bilateral, PERRL: bilateral, EOMI: bilateral Ears, Nose, Throat: Present: normal ENT inspection Neck: Present: normal inspection, nontender Respiratory: Present: no respiratory distress, normal breath sounds, no accessory muscle use Cardiovascular/Chest: Present: regular rate, rhythm, no murmur, normal peripheral pulses Gastrointestinal/Abdominal: Present: normal bowel sounds, nontender, nondistended, soft, no organomegaly Neurological Exam: Present: other - she appears to have decreased responsiveness but arousable and stimulated sternally Skin Exam: Present: normal color, warm/dry Lymphatic Exam: Present: no adenopathy Sarah Coma Scale - Assess Eye Opening: To Voice Motor: Obeys Commands Verbal: Oriented - Total Coma Scale Total: 14 ED Progress - Results and Orders Patient's Lab Results:: I have reviewed the patient's lab results. - Vital Signs Patient's Vital Signs:: I have reviewed the patient's vital signs. Vital Signs: Vital Signs 08/16/17 07:59 Temperature 36.5 C Pulse Rate 101 H Respiratory 15 Rate Blood Pressure 113/77 O2 Sat by Pulse 94 Oximetry - X-Ray X-Ray #1 X-Ray: chest - chest x-ray reviewed with no acute cardiopulmonary abnormality. Interpretation: Interp. by me, Reviewed by me - Progress/Reassessment Chief Complaint: Altered Mental Status Progress:: Unchanged Progress Note-Subjective: 08/16/17 11:06 During her emergency room stay patient received normal saline bolus. She is still has decreased responsiveness. Blood work reviewed with no white count noted. A CMP was consistent with mild hypokalemia. Urinalysis was consistent with this is a favors a UTI. Patient was recently treated for urinary tract infection with Ceftin. CAT scan of the head and chest was unremarkable. To her acute altered mental status I proceeded and spoke with Mame Blackwell who will be accepting patient for observation. To be started on ampicillin 1.5 g IV 1 in the emergency room here and continued on IV fluid. Departure Clinical Impression: Altered mental status, unspecified Qualifiers: Altered mental status type: delirium Qualified Code(s): R41.0 - Disorientation , unspecified - Departure Disposition: [facility] Condition: Stable
[2017-08-16] MEDS ORDERED: NORMAL SALINE 1,000 ML IV ONE ×2 (08:50→11:19)
[2017-08-16 09:22] LABS: Hematocrit 33.8 % (37.0-47.0); Hemoglobin 11.1 gm/dL (12.5-16.0); Mean Cell Volume 98.8 fl (78-100); Mean Corpuscular Hemoglobin 32.5 pg (27-31); Mean Corpuscular Hgb Conc 32.8 g/dl (32-36); Mean Platelet Volume 8.6 fl (6.0-9.5); Neutrophil # 6.6 K/mm3 (1.3-6.0); Neutrophil % 82.2 % (42-75.0); Platelet Count 258 K/mm3 (150-450); Red Blood Count 3.42 M/mm3 (4.2-5.4); Red Cell Distribution Width 13.9 % (11.5-14.0); White Blood Count 8.1 K/mm3 (4.0-10.5)
[2017-08-16 09:38] LABS: Albumin * 3.2 gm/dl (3.4-5.0); Anion Gap 13.8 mmol/L (6.8-13.8); BUN/Creatinine Ratio 19.6 (9.0-21.6); Bilirubin, Total 0.3 mg/dL (0.0-1.1); CRP 0.8 mg/dL (0.0-0.9); Ca. Corrected For Albumin 9.5 mg/dL (8.4-10.2); Calcium * 9.2 mg/dL (7.9-10.9); Carbon Dioxide 28.5 mmol/L (24-32.6); Potassium 3.3 mmol/L (3.4-4.6); Total Protein 6.8 gm/dL (6.2-8.2)
[2017-08-16 09:42] LABS: Urine Bilirubin Negative (NEGATIVE); Urine Blood Negative /ul (NEGATIVE); Urine Ketone Negative (NEGATIVE); Urine Nitrite Negative (NEGATIVE); Urine Protein Negative (NEGATIVE); Urine Specific Gravity 1.015 SP.GR. (1.005-1.010); Urine Urobilinogen Normal (NORMAL); Urine pH 6.5 pH (5.0-7.0)
[2017-08-16 10:17] LABS: Urine Appearance Slightly Cloudy; Urine Bacteria 4+; Urine Color Yellow; Urine RBC 0-5 /hpf (0-5); Urine WBC >50 /hpf (0-5)
[2017-08-16] MEDS ORDERED: AMPICILLIN SODIUM 1,000 MG in NORMAL SALINE 100 ML IV ONE (11:11)
[2017-08-16 11:19] LABS: Troponin I Less than 0.017 ng/ml (0.00-0.10)
[2017-08-16 11:25] LABS: CK Total * 98 U/L (0-259); CKMB 1.4 ng/mL (0.0-9.0)
[2017-08-16] MEDS ORDERED: ALBUTEROL SULFATE 2.5 MG/0.5 ML VIAL.NEB IH PRN (12:16)
[2017-08-16] MEDS ORDERED: BISACODYL 5 MG TABLET.DR PO PRN (12:16)
[2017-08-16] MEDS: MAGNESIUM OXIDE 400 MG TABLET PO SCH ×2 (14:44→16:52)
[2017-08-16] MEDS: TROLAMINE SALICYLATE 90 APPL TUBE TP SCH ×5 (14:44→21:07)
[2017-08-16] MEDS ORDERED: AMPICILLIN SODIUM 1,000 MG in NORMAL SALINE 100 ML IV SCH (16:00)
[2017-08-16] MEDS: CEFTAZIDIME 1 GM in DEXTROSE 5 % IN WATER 100 ML IV SCH ×2 (16:52)
[2017-08-16] MEDS ORDERED: NYSTATIN 15 APPL BTL TP SCH (17:00)
--- NOTE | 2017-08-16 17:21 | HP ---
Chief Complaint - Chief Complaint Date of Service: 08/16/17 Time of Service: 17:11 Chief Complaint: Lethargic History of Present Illness: This patient is a 71-year-old female who presents to the emergency room with generalized weakness. She was seen at the emergency room 2-3 days ago found to having a urinary tract infection with E. coli. She was found to have indications for admission then, but she refused and was discharged. She is here today with her daughter because after her discharge she has been lethargic, falling, stumbling into stuart, with altered mental status. Her daughter was able to wake her up yesterday for breakfast, but her appetite was poor. Her daughter reports that all day yesterday and today she has been lethargic. I asked the ER doctor if she was taking any medicines which could cause this, and he said know. When I came to see her tonight, I found she takes many medicines any one of which could cause this and I have now stopped them all. - Patient's Past Medical History Patient History - Medical: Anxiety, Bipolar, Diabetes Type 2, Depression, GERD, Headache, Hypothyroidism, Osteoporosis, UTI'S Patient History - Cardiac/Respiratory: Hypertension, Hyperlipidemia, TIA Patient History - Cancer: No Hx of Cancer Patient History - Surgical Procedures: Back Surgery Patient History - Other: None LMP (females 10-50): post men - Family History Mother Family History - Medical: Family History - Cardiac/Respiratory: CHF, Myocardial Infarction Brother Family History - Medical: - Social History Living Situations: home Abuse History: No History of abuse Psych History: Hx of Anxiety, Hx of Depression Smoking Status: Former smoker Have you smoked in the past 12 months: No Do you dip or chew tobacco: No Patient requests Smoking Cessation Consult: No Initiate information on Smoking Cessation: No Alcohol Use: none Drug Use: none - Immunizations Immunizations Up to Date: Yes Hx Pneumococcal Vaccination: Yes History of Influenza Vaccine: Yes Review Of Systems (GEN) - Review of Systems Generalized/Overall Review: Present: Malaise EENTM: Present: No Symptoms Reported Respiratory: Present: No Symptoms Reported Cardiac: Present: No Symptoms Reported Abdominal: Present: No Symptoms Reported Genitourinary: Present: No Symptoms Reported Musculoskeletal: Present: No Symptoms Reported Neurological: Present: Anxiety, Depressed, Emotional Problems Skin: Present: No Symptoms Reported Endocrine: Present: No Symptoms Reported Misc: All systems neg except as marked Immunizations: IMMUNIZATION HX Immunizations Up to Date Yes History of Influenza Vaccine Yes Hx Pneumococcal Vaccination Yes Allergies/Adverse Reactions: Allergies Allergy/AdvReac Type Severity Reaction Status Date / Time ciprofloxacin Allergy Intermediate BRONCHOSPAS Verified 08/16/17 14:02 M codeine phosphate AdvReac Mild ABD PAIN Verified 08/16/17 14:02 [From Codeine Phosphate Soluble] duloxetine [From Cymbalta] AdvReac Other Verified 08/16/17 14:02 mirtazapine AdvReac Other Verified 08/16/17 14:02 Home Medications: HOME MEDICATIONS ALPRAZolam [Xanax] 2 mg PO TID PRN 03/05/17 [Last Taken Unknown] Acetaminophen 650 mg PO Q6H PRN 03/05/17 [Last Taken Unknown] Albuterol Sulfate [Ventolin HFA] 2 puff IH Q6H 03/05/17 [Last Taken Unknown] Aspirin [Aspirin EC] 81 mg PO DAILY 03/05/17 [Last Taken Unknown] Bisacodyl [Dulcolax] 5 mg PO PRN PRN 03/05/17 [Last Taken Unknown] Calcium Carbonate [Antacid Extra Strength] 750 mg PO BID 03/05/17 [Last Taken Unknown] Clotrimazole/Betamethasone Dip [Clotrimazole-Betamethasone Crm] 1 appl TP BID [Last Taken Unknown] Denosumab [Prolia] 60 mg SQ Q6M 03/05/17 [Last Taken Unknown] Folic Acid 1 mg PO DAILY 03/05/17 [Last Taken Unknown] Lamotrigine [Lamictal] 200 mg PO DAILY 03/05/17 [Last Taken Unknown] Losartan Potassium [Cozaar] 25 mg PO DAILY 03/05/17 [Last Taken Unknown] Magnesium 250 mg PO TID 03/05/17 [Last Taken Unknown] Methotrexate Sodium [Methotrexate] 3 tab PO BID 03/05/17 [Last Taken Unknown] Metoprolol Tartrate [Lopressor] 25 mg PO BID 03/05/17 [Last Taken Unknown] Multivitamin [One Daily Multivitamin] 1 each PO DAILY 03/05/17 [Last Taken Unknown] Naltrexone HCl [ReVia] 50 mg PO HS 03/05/17 [Last Taken Unknown] Omeprazole 20 mg PO DAILY 03/05/17 [Last Taken Unknown] Oxybutynin Chloride [Ditropan Xl] 5 mg PO HS 03/05/17 [Last Taken Unknown] QUEtiapine FUMARATE [Seroquel] 25 mg PO HS 03/05/17 [Last Taken Unknown] Trolamine Salicylate [Aspercreme] 1 appl TP QID 03/05/17 [Last Taken Unknown] risperiDONE [Risperdal] 4 mg PO BID 03/05/17 [Last Taken Unknown] Polyethylene Glycol 3350 [Miralax] 17 gm PO DAILY btl 03/08/17 [Last Taken Unknown] Cholecalciferol (Vitamin D3) [Vitamin D3] 2,000 unit PO DAILY #100 capsule 04/15 [Last Taken Unknown] Cyclobenzaprine HCl [Flexeril] 10 mg PO HS PRN #.1 tablet 04/15/17 [Last Taken Unknown] Furosemide [Lasix] 20 mg PO DAILY #.1 tablet 04/15/17 [Last Taken Unknown] Gabapentin 300 mg PO TID 08/16/17 [Last Taken Unknown] Levothyroxine Sodium [Synthroid] 50 mcg PO DAILY 08/16/17 [Last Taken Unknown] Lidocaine [Lidoderm 5%] 1 patch TP BID 08/16/17 [Last Taken Unknown] Simvastatin [Zocor] 40 mg PO HS 08/16/17 [Last Taken Unknown] Topiramate [Topamax] 25 mg PO BID 08/16/17 [Last Taken Unknown] Exam - Exam Vital Signs: Vital Signs - Last Taken Selected Entries 08/16/17 14:27 Temperature 36.3 C L Temperature Oral Source Pulse Rate 89 Pulse Rhythm Regular Pulse Strength Normal Respiratory 18 Rate Respiratory Normal Depth Respiratory Normal Effort Respiratory Normal Pattern Blood Pressure 110/68 Blood Pressure 82 Mean Blood Pressure Sitting Position O2 Sat by Pulse 96 Oximetry Oxygen Delivery Room Air Method Constitutional: Present: Alert, Cooperative, Well developed, Well nourished ENT Exam: Present: normal ENT inspection, hearing grossly normal Neck: Present: normal inspection Back Exam: Present: normal inspection Respiratory: Present: normal breath sounds, no respiratory distress Cardiovascular/Chest: Present: regular rate, rhythm, no murmur Abdomen: Present: Normal bowel sounds, soft, nontender, nondistended, no rebound tenderness, no hepatospenomegaly, no masses Extremity: Present: normal inspection. Absent: pedal edema Skin Exam: Present: normal color, warm/dry, no cyanosis Neurologic: Present: alert Appearance: Present: appropriate appearance, neat Eye contact: Present: cooperative, good eye contact Diagnostic Studies: Laboratory Results WBC 8.1 K/mm3 (4.0-10.5) 08/16/17 09:05 RBC 3.42 M/mm3 (4.2-5.4) L 08/16/17 09:05 Hgb 11.1 gm/dL (12.5-16.0) L 08/16/17 09:05 Hct 33.8 % (37.0-47.0) L 08/16/17 09:05 MCV 98.8 fl (78-100) 08/16/17 09:05 MCH 32.5 pg (27-31) H 08/16/17 09:05 MCHC 32.8 g/dl (32-36) 08/16/17 09:05 RDW 13.9 % (11.5-14.0) 08/16/17 09:05 Plt Count 258 K/mm3 (150-450) 08/16/17 09:05 MPV 8.6 fl (6.0-9.5) 08/16/17 09:05 Immature Gran % (Auto) 0.20 % (0.001-0.429) 08/16/17 09:05 Immature Gran # (Auto) 0.02 K/mm3 (0.000-0.0310) 08/16/17 09:05 Neutrophils % 82.2 % (42-75.0) H 08/16/17 09:05 Lymphocytes % 9.4 % (20-51) L 08/16/17 09:05 Monocytes % 6.0 % (0.0-9) 08/16/17 09:05 Eosinophils % 2.0 % (0.0-3.0) 08/16/17 09:05 Basophils % 0.2 % (0.0-1.0) 08/16/17 09:05 Nucleated RBC % 0.0 k/mm3 (0-1) 08/16/17 09:05 Neutrophils # 6.6 K/mm3 (1.3-6.0) H 08/16/17 09:05 Lymphocytes # 0.8 k/mm3 (1.5-3.5) L 08/16/17 09:05 Monocytes # 0.5 k/mm3 (0.0-1.0) 08/16/17 09:05 Eosinophils # 0.2 k/mm3 (0.0-0.7) 08/16/17 09:05 Absolute Basophils 0.0 k/mm3 (0.0-0.1) 08/16/17 09:05 pCO2 43.2 mmHg (32.0-45.0) 08/16/17 09:05 pO2 63.5 mmHg (83.0-108.0) L 08/16/17 09:05 HCO3 25.5 mmol/L (21.0-28.0) 08/16/17 09:05 Total CO2 26.8 mmol/L (19.0-24.0) H 08/16/17 09:05 Base Excess 0.4 mmol/L (-2.0-3.0) 08/16/17 09:05 ABG pH 7.39 (7.35-7.45) 08/16/17 09:05 ABG O2 Sat (Measured) 92.0 % (94.0-98.0) L 08/16/17 09:05 Sodium 144 mmol/L (132-142) H 08/16/17 09:05 Plasma Sodium 145 mmol/L (130-142) H 08/16/17 09:05 Potassium 3.3 mmol/L (3.4-4.6) L 08/16/17 09:05 Chloride 105 mmol/L (97-106) 08/16/17 09:05 Carbon Dioxide 28.5 mmol/L (24-32.6) 08/16/17 09:05 Anion Gap 13.8 mmol/L (6.8-13.8) 08/16/17 09:05 BUN 21 mg/dL (3-23) 08/16/17 09:05 Creatinine 1.07 mg/dL (0.4-1.4) 08/16/17 09:05 Est GFR (Non-Af Amer) 53 mL/min (60-130) L 08/16/17 09:05 BUN/Creatinine Ratio 19.6 (9.0-21.6) 08/16/17 09:05 Random Glucose 135 mg/dL (70-110) H 08/16/17 09:05 Calcium 9.2 mg/dL (7.9-10.9) 08/16/17 09:05 Calcium Adj for Albumin 9.5 mg/dL (8.4-10.2) 08/16/17 09:05 Total Bilirubin 0.3 mg/dL (0.0-1.1) 08/16/17 09:05 AST 21 U/L (0-48) 08/16/17 09:05 ALT 25 U/L (19-67) 08/16/17 09:05 Alkaline Phosphatase 107 U/L (50-170) 08/16/17 09:05 Creatine Kinase 98 U/L (0-259) 08/16/17 09:05 CK-MB (CK-2) 1.4 ng/mL (0.0-9.0) 08/16/17 09:05 CK-MB (CK-2) Rel Index 1.4 (0.0-3.6) 08/16/17 09:05 Troponin I Less than 0.017 ng/ml (0.00-0.10) 08/16/17 09:05 C-Reactive Prot, Quant 0.8 mg/dL (0.0-0.9) 08/16/17 09:05 B-Natriuretic Peptide 35 pg/mL (5-325) 08/16/17 09:05 Total Protein 6.8 gm/dL (6.2-8.2) 08/16/17 09:05 Albumin 3.2 gm/dl (3.4-5.0) L 08/16/17 09:05 Urine Color Yellow 08/16/17:30 Urine Appearance Slightly cloudy 08/16/17 09:30 Urine pH 6.5 pH (5.0-7.0) 08/16/17 09:30 Ur Specific [place] 1.015 SP.GR. (1.005-1.010) 08/16/17 09:30 Urine Protein Negative mg/dL (NEGATIVE) 08/16/17 09:30 Urine Glucose (UA) Negative mg/dL (NEGATIVE) 08/16/17 09:30 Urine Ketones Negative mg/dL (NEGATIVE) 08/16/17 09:30 Urine Blood Negative /ul (NEGATIVE) 08/16/17 09:30 Urine Nitrate Negative (NEGATIVE) 08/16/17 09:30 Urine Bilirubin Negative mg/dl (NEGATIVE) 08/16/17 09:30 Urine Urobilinogen Normal EU/dl (NORMAL) 08/16/17 09:30 Ur Leukocyte Esterase 100 /ul (NEGATIVE) H 08/16/17 09:30 Urine RBC 0-5 /hpf (0-5) 08/16/17 09:30 Urine WBC >50 /hpf (0-5) H 08/16/17 09:30 Ur Epithelial Cells None seen /hpf (0-5) 08/16/17 09:30 Urine Bacteria 4+ (NONE) H 08/16/17 09:30 Urine Culture Comments Culture to follow 08/16/17 09:30 Assessment/Plan - Narrative Narrative: IV antibiotics. Minimize medications. - Assessment/Plan (1) Altered mental status, unspecified Problem: Acute Qualifiers: Altered mental status type: delirium Qualified Code(s): R41.0 - Disorientation, unspecified (2) UTI (urinary tract infection) Problem: Acute
[2017-08-16] MEDS: OXYBUTYNIN CHLORIDE 5 MG TABLET PO SCH (20:58)
[2017-08-16] MEDS: METOPROLOL TARTRATE 25 MG TABLET PO SCH (20:58)
[2017-08-16] MEDS: CALCIUM CARBONATE 500 MG TAB.CHEW PO SCH (20:59)
[2017-08-16] MEDS: SIMVASTATIN 40 MG TABLET PO SCH (20:59)
[2017-08-16] MEDS: CLOTRIMAZOLE/BETAMET DIPROP 15 APPL TUBE TP SCH (20:59)
[2017-08-16] MEDS: REMOVE PATCH 1 PATCH PATCH TP SCH (21:02)
[2017-08-16] MEDS: NYSTATIN 15 APPL BTL TP SCH (21:07)
[2017-08-17] MEDS: ACETAMINOPHEN 325 MG TABLET PO PRN ×2 (03:40→20:02)
[2017-08-17] MEDS: CEFTAZIDIME 1 GM in DEXTROSE 5 % IN WATER 100 ML IV SCH ×4 (04:54→17:48)
[2017-08-17 05:43] LABS: Hematocrit 32.7 % (37.0-47.0); Hemoglobin 10.5 gm/dL (12.5-16.0); Mean Cell Volume 98.8 fl (78-100); Mean Corpuscular Hemoglobin 31.7 pg (27-31); Mean Corpuscular Hgb Conc 32.1 g/dl (32-36); Mean Platelet Volume 8.4 fl (6.0-9.5); Neutrophil # 7.4 K/mm3 (1.3-6.0); Platelet Count 240 K/mm3 (150-450); Red Blood Count 3.31 M/mm3 (4.2-5.4); Red Cell Distribution Width 13.6 % (11.5-14.0); White Blood Count 9.1 K/mm3 (4.0-10.5)
[2017-08-17 05:49] LABS: Albumin * 2.8 gm/dl (3.4-5.0); Anion Gap 10.3 mmol/L (6.8-13.8); BUN/Creatinine Ratio 15.5 (9.0-21.6); Bilirubin, Total 0.3 mg/dL (0.0-1.1); Ca. Corrected For Albumin 10.1 mg/dL (8.4-10.2); Calcium * 9.5 mg/dL (7.9-10.9); Carbon Dioxide 27.3 mmol/L (24-32.6); Potassium 3.6 mmol/L (3.4-4.6); Total Protein 6.3 gm/dL (6.2-8.2)
[2017-08-17] MEDS: PANTOPRAZOLE SODIUM 20 MG TABLET.DR PO SCH (06:36)
[2017-08-17] MEDS: LEVOTHYROXINE SODIUM 50 MCG TABLET PO SCH (06:36)
--- NOTE | 2017-08-17 06:42 | PN ---
Subjective - Date and Time Seen Date: 08/17/17 Time: 06:30 Subjective Narrative: patient seen today AOX3 no acute distress, pt stated she had frequency to void over night and now feels much better. pt stated she came to the hospital yesterday because she was running into things and was confused. She said she is aware of whats going on today and anticipating going home. Plan of care discussed with pt she verbalized understanding and agrees. Objective - Review of Systems Generalized/Overall Review: Reports: No Symptoms Reported EENTM: Reports: No Symptoms Reported Respiratory: Reports: No Symptoms Reported Cardiac: Reports: No Symptoms Reported Abdominal: Reports: No Symptoms Reported Genitourinary Symptoms: Reports: Frequency, Incontinent Musculoskeletal Complaints: Reports: No Symptoms Reported Neurological: Reports: No Symptoms Reported Skin: Reports: No Symptoms Reported - Vitals Vitals: Last Vital Signs Temp 36.8 C 08/17/17 06:22 Pulse 74 08/17/17 06:22 Resp 20 08/17/17 06:22 BP 114/70 08/17/17 06:22 Pulse Ox 96 08/17/17 06:22 - Abnormal Lab Findings Abnormal Lab Findings: Abnormal Lab Results 08/17/17 08/17/17 Range/Units 05:25 05:25 RBC 3.31 L (4.2-5.4) M/mm3 Hgb 10.5 L (12.5-16.0) gm/dL Hct 32.7 L (37.0-47.0) % MCH 31.7 H (27-31) pg Neutrophils % 81.0 H (42-75.0) % Lymphocytes % 11.9 L (20-51) % Neutrophils # 7.4 H (1.3-6.0) K/mm3 Lymphocytes # 1.1 L (1.5-3.5) k/mm3 Est GFR (Non-Af Amer) 56 L (60-130) mL/min Random Glucose 133 H (70-110) mg/dL Albumin 2.8 L (3.4-5.0) gm/dl - Exam Constitutional: Present: Alert, Oriented x3, Cooperative, Well developed, No distress ENT Exam: Present: hearing grossly normal Neck: Present: full range of motion Breasts: Present: Exam deferred Respiratory: Present: chest non-tender, lungs clear, normal breath sounds, no respiratory distress Cardiovascular/Chest: Present: normal peripheral pulses, regular rate, rhythm, no chest tenderness, no edema Abdomen: Present: Normal bowel sounds, soft, nontender, nondistended /Rectal: Present: Exam deferred Extremity: Present: normal range of motion, normal inspection, no pedal edema, no calf tenderness Skin Exam: Present: normal color, warm/dry Neurologic: Present: oriented x 3 Appearance: Present: appropriate appearance Eye contact: Present: cooperative, good eye contact Thoughts: Present: normal thought pattern Assessment/Plan Plan Narrative: UTI pt was adm due to altered mental status Seen on Urinalysis Continue with antibiotic Altered mental status- possible due to home medications- resolved UTI on urinalysis Meds stopped Today pt was seen AOX3 no reports overnight Chronic conditions- stable Hypertension COPD GERD Diabetes Code status: Full GI ppx: protonix VTE ppx: Ambulate and SCD Time 15 minutes and case discussed with DR John - Problems/Diagnosis (1) Altered mental status Problem: Resolved Qualifiers: Altered mental status type: unspecified Qualified Code(s): R41.82 - Altered mental status, unspecified (2) UTI (urinary tract infection) Problem: Acute (3) Anemia Problem: Chronic Qualifiers: Anemia type: unspecified type Qualified Code(s): D64.9 - Anemia, unspecified (4) Diabetes Problem: Chronic Qualifiers: Diabetes mellitus type: type 2 Diabetes mellitus complication status: with unspecified complications Diabetes mellitus intermediate insulin use: unspecified terminal operator insulin use status Qualified Code(s): E11.8 - Type 2 diabetes mellitus with unspecified complications (5) Altered mental status, unspecified Problem: Resolved Qualifiers: Altered mental status type: unspecified Qualified Code(s): R41.82 - Altered mental status, unspecified (6) COPD (chronic obstructive pulmonary disease) Problem: Chronic Qualifiers: COPD type: chronic bronchitis Chronic bronchitis type: simple Qualified Code(s): J41.0 - Simple chronic bronchitis
[2017-08-17] MEDS: TROLAMINE SALICYLATE 90 APPL TUBE TP SCH ×4 (08:36→20:08)
[2017-08-17] MEDS: ASPIRIN 81 MG TABLET.DR PO SCH (08:37)
[2017-08-17] MEDS: FUROSEMIDE 20 MG TABLET PO SCH (08:37)
[2017-08-17] MEDS: OXYBUTYNIN CHLORIDE 5 MG TABLET PO SCH ×2 (08:37→20:06)
[2017-08-17] MEDS: MULTIVITAMINS 1 CAP CAPSULE PO SCH (08:38)
[2017-08-17] MEDS: FOLIC ACID 1 MG TABLET PO SCH (08:38)
[2017-08-17] MEDS: LOSARTAN POTASSIUM 50 MG TABLET PO SCH (08:38)
[2017-08-17] MEDS: CALCIUM CARBONATE 500 MG TAB.CHEW PO SCH ×3 (08:39→20:10)
[2017-08-17] MEDS: METOPROLOL TARTRATE 25 MG TABLET PO SCH ×2 (08:39→20:06)
[2017-08-17] MEDS: MAGNESIUM OXIDE 400 MG TABLET PO SCH ×3 (08:39→18:29)
[2017-08-17] MEDS: NYSTATIN 15 APPL BTL TP SCH ×2 (08:40→20:08)
[2017-08-17] MEDS: CLOTRIMAZOLE/BETAMET DIPROP 15 APPL TUBE TP SCH ×2 (08:41→20:08)
[2017-08-17] MEDS: POLYETHYLENE GLYCOL 3350 119 GM BTL PO SCH (08:42)
[2017-08-17] MEDS: LIDOCAINE 1 PATCH ADH..PATCH TP SCH (08:43)
[2017-08-17] MEDS: NALTREXONE HCL 50 MG TABLET PO SCH (08:47)
[2017-08-17] MEDS: CHOLECALCIFEROL 1,000 UNIT CAPSULE PO SCH (08:52)
--- NOTE | 2017-08-17 12:09 | PN ---
Subjective - Date and Time Seen Date: 08/17/17 Time: 12:03 Subjective Narrative: Confuse. Awake. No pain. Objective - Review of Systems Generalized/Overall Review: Reports: Malaise EENTM: Reports: No Symptoms Reported Respiratory: Reports: No Symptoms Reported Cardiac: Reports: No Symptoms Reported Abdominal: Reports: No Symptoms Reported Genitourinary Symptoms: Reports: No Symptoms Reported Musculoskeletal Complaints: Reports: No Symptoms Reported Neurological: Reports: No Symptoms Reported Skin: Reports: No Symptoms Reported Endocrine: Reports: No Symptoms Reported Misc: All systems neg except as marked - Vitals Vitals: Last Vital Signs Selected Entries 08/17/17 10:24 Temperature 36.4 C L Temperature Temporal Artery Source Scan Pulse Rate 70 Respiratory 20 Rate Blood Pressure 101/69 Blood Pressure Supine Position O2 Sat by Pulse 97 Oximetry Oxygen Delivery Room Air Method - Abnormal Lab Findings Abnormal Lab Findings: Abnormal Lab Results 08/17/17 08/17/17 Range/Units 05:25 05:25 RBC 3.31 L (4.2-5.4) M/mm3 Hgb 10.5 L (12.5-16.0) gm/dL Hct 32.7 L (37.0-47.0) % MCH 31.7 H (27-31) pg Neutrophils % 81.0 H (42-75.0) % Lymphocytes % 11.9 L (20-51) % Neutrophils # 7.4 H (1.3-6.0) K/mm3 Lymphocytes # 1.1 L (1.5-3.5) k/mm3 Est GFR (Non-Af Amer) 56 L (60-130) mL/min Random Glucose 133 H (70-110) mg/dL Albumin 2.8 L (3.4-5.0) gm/dl - Exam Constitutional: Present: Alert, Cooperative, Well developed, Well nourished, No distress ENT Exam: Present: normal ENT inspection, hearing grossly normal Neck: Present: normal inspection Respiratory: Present: normal breath sounds, no respiratory distress Cardiovascular/Chest: Present: regular rate, rhythm, no murmur Abdomen: Present: Normal bowel sounds, soft, nontender, nondistended, no rebound tenderness, no hepatospenomegaly, no masses Extremity: Present: normal inspection, no pedal edema Skin Exam: Present: normal color, warm/dry, no cyanosis Neurologic: Present: alert Appearance: Present: appropriate appearance, neat Eye contact: Present: cooperative, good eye contact, normal speech Assessment/Plan Plan Narrative: IV antibiotics. If confusion persists may be jail candidate. Follow labs. Admit acute. - Problems/Diagnosis (1) Altered mental status, unspecified Problem: Acute Qualifiers: Altered mental status type: delirium Qualified Code(s): R41.0 - Disorientation, unspecified (2) UTI (urinary tract infection) Problem: Acute
[2017-08-17] MEDS: ENOXAPARIN SODIUM 40 MG/0.4 ML SYRG SC SCH (13:06)
[2017-08-17] MEDS: REMOVE PATCH 1 PATCH PATCH TP SCH (20:07)
[2017-08-17] MEDS: SIMVASTATIN 40 MG TABLET PO SCH (20:10)
[2017-08-18] MEDS: CEFTAZIDIME 1 GM in DEXTROSE 5 % IN WATER 100 ML IV SCH ×2 (05:09)
[2017-08-18 06:40] LABS: Hematocrit 31.7 % (37.0-47.0); Hemoglobin 10.3 gm/dL (12.5-16.0); Mean Cell Volume 98.4 fl (78-100); Mean Corpuscular Hgb Conc 32.5 g/dl (32-36); Mean Platelet Volume 8.8 fl (6.0-9.5); Platelet Count 251 K/mm3 (150-450); Red Blood Count 3.22 M/mm3 (4.2-5.4); Red Cell Distribution Width 13.6 % (11.5-14.0); White Blood Count 5.2 K/mm3 (4.0-10.5)
[2017-08-18 06:50] LABS: Total Cells Counted 100
[2017-08-18] MEDS: PANTOPRAZOLE SODIUM 20 MG TABLET.DR PO SCH (06:58)
[2017-08-18] MEDS: LEVOTHYROXINE SODIUM 50 MCG TABLET PO SCH (06:58)
[2017-08-18 07:03] LABS: Anion Gap 10.6 mmol/L (6.8-13.8); BUN/Creatinine Ratio 18.7 (9.0-21.6); Calcium * 9.6 mg/dL (7.9-10.9); Carbon Dioxide 27.4 mmol/L (24-32.6); T4 Free * 0.95 ng/dL (0.76-1.46); TSH * 3.9 uIU/mL (0.358-3.74)
[2017-08-18 07:08] LABS: Atypical (Reactive) Lymph 1 % (0-2); Eosinophil 3 % (0-3); Lymphocyte 25 % (20-51); Neutrophil 71 % (42-75); Neutrophil # 3.7 K/mm3 (1.3-6.0)
[2017-08-18 07:10] LABS: Platelet Estimate Normal (NORMAL); RBC Morphology Normal (NORMAL)
--- NOTE | 2017-08-18 08:08 | PN ---
Subjective - Date and Time Seen Date: 08/18/17 Time: 08:00 Subjective Narrative: Knows time of day and place. Otherwise no prorblems. Objective - Review of Systems Generalized/Overall Review: Reports: Malaise EENTM: Reports: No Symptoms Reported Respiratory: Reports: No Symptoms Reported Cardiac: Reports: No Symptoms Reported Abdominal: Reports: No Symptoms Reported Genitourinary Symptoms: Reports: No Symptoms Reported Musculoskeletal Complaints: Reports: No Symptoms Reported Neurological: Reports: No Symptoms Reported Skin: Reports: No Symptoms Reported Endocrine: Reports: No Symptoms Reported Misc: All systems neg except as marked - Vitals Vitals: Last Vital Signs Selected Entries 08/18/17 06:28 Temperature 36.6 C Temperature Temporal Artery Source Scan Pulse Rate 89 Respiratory 20 Rate Blood Pressure 134/83 Blood Pressure Sitting Position O2 Sat by Pulse 95 Oximetry Oxygen Delivery Room Air Method - Abnormal Lab Findings Abnormal Lab Findings: Abnormal Lab Results 08/18/17 08/18/17 Range/Units 06:00 06:00 RBC 3.22 L (4.2-5.4) M/mm3 Hgb 10.3 L (12.5-16.0) gm/dL Hct 31.7 L (37.0-47.0) % MCH 32.0 H (27-31) pg Lymphocytes # (Manual) 1.3 L (1.5-3.5) k/mm3 Chloride 107 H (97-106) mmol/L Est GFR (Non-Af Amer) 53 L (60-130) mL/min Random Glucose 149 H (70-110) mg/dL TSH 3.900 H (0.358-3.74) uIU/mL - Exam Constitutional: Present: Alert, Other - milf confusion ENT Exam: Present: normal ENT inspection, hearing grossly normal Neck: Present: non-tender, full range of motion, supple, normal inspection Respiratory: Present: normal breath sounds, no respiratory distress Cardiovascular/Chest: Present: regular rate, rhythm, no murmur Abdomen: Present: Normal bowel sounds, soft, nontender, nondistended, no rebound tenderness, no hepatospenomegaly, no masses Extremity: Present: normal inspection, no pedal edema Skin Exam: Present: normal color, warm/dry, no cyanosis Neurologic: Present: alert, other - orientented x2 Eye contact: Present: cooperative, good eye contact, normal speech Assessment/Plan Plan Narrative: IV antibiotiotics. monitor. - Problems/Diagnosis (1) Altered mental status, unspecified Problem: Acute Qualifiers: Altered mental status type: delirium Qualified Code(s): R41.0 - Disorientation, unspecified (2) UTI (urinary tract infection) Problem: Acute
[2017-08-18] MEDS: NALTREXONE HCL 50 MG TABLET PO SCH (08:30)
[2017-08-18] MEDS: METOPROLOL TARTRATE 25 MG TABLET PO SCH (08:30)
[2017-08-18] MEDS: CLOTRIMAZOLE/BETAMET DIPROP 15 APPL TUBE TP SCH (08:30)
[2017-08-18] MEDS: CALCIUM CARBONATE 500 MG TAB.CHEW PO SCH (08:30)
[2017-08-18] MEDS: POLYETHYLENE GLYCOL 3350 119 GM BTL PO SCH (08:31)
[2017-08-18] MEDS: ASPIRIN 81 MG TABLET.DR PO SCH (08:31)
[2017-08-18] MEDS: FUROSEMIDE 20 MG TABLET PO SCH (08:31)
[2017-08-18] MEDS: CHOLECALCIFEROL 1,000 UNIT CAPSULE PO SCH (08:31)
[2017-08-18] MEDS: MAGNESIUM OXIDE 400 MG TABLET PO SCH ×2 (08:31→12:17)
[2017-08-18] MEDS: MULTIVITAMINS 1 CAP CAPSULE PO SCH (08:32)
[2017-08-18] MEDS: OXYBUTYNIN CHLORIDE 5 MG TABLET PO SCH (08:32)
[2017-08-18] MEDS: NYSTATIN 15 APPL BTL TP SCH (08:32)
[2017-08-18] MEDS: FOLIC ACID 1 MG TABLET PO SCH (08:32)
[2017-08-18] MEDS: TROLAMINE SALICYLATE 90 APPL TUBE TP SCH ×2 (08:33→12:16)
[2017-08-18] MEDS: LOSARTAN POTASSIUM 50 MG TABLET PO SCH (08:33)
[2017-08-18] MEDS: LIDOCAINE 1 PATCH ADH..PATCH TP SCH (08:33)
[2017-08-18 10:09] VITALS: BP 114/68
[2017-08-18] MEDS: ENOXAPARIN SODIUM 40 MG/0.4 ML SYRG SC SCH (12:16)
--- NOTE | 2017-08-18 13:40 | DS ---
(1) Altered mental status, unspecified Problem: Acute Qualifiers: Altered mental status type: delirium Qualified Code(s): R41.0 - Disorientation, unspecified (2) UTI (urinary tract infection) Problem: Acute Description of Stay: Janelle is a 71 yo female that was admitted with altered mental status with delirium. It was suspected that she had a UTI and was started on antibiotics. Several cognitive affecting medications were held as well. Over a couple days cognition improved and she returned to her baseline. She had no concerns and felt well. Urine cultures ultimately had no growth. Unclear if the improvement occurred due to antibiotics or holding psychotropic medications. Due to the unknown will complete antibiotic course and adjust medications to limit cognitively impairing medications. Procedures Performed: none Discharge Disposition: Home self care Disposition: [facility] Home Health Condition: Stable Discharge Activity: Activity as tolerated Discharge Diet: General/regular food Referrals: Jerome Mensah DO [Staff Physician] - Problem Oriented Discharge Instructions to Patient/Family: Urinary Tract Infection, Adult, [id number] Additional Patient Instructions (free text): Please fax discharge instructions and medications to pt's home health on Monday (Case Management to find out home health agency on Monday.) Staff will call with follow up appointment date and time. Prescriptions (Any new or edited meds): Lamotrigine [Lamictal] 200 mg PO DAILY #60 tablet Sulfamethoxazole/Trimethoprim [Bactrim Ds] 1 tab PO BID #20 tab Complete Home Medications List: Complete Home Medication List: ALPRAZolam [Xanax] 2 mg PO TID PRN 03/05/17 Acetaminophen 650 mg PO Q6H PRN 03/05/17 Albuterol Sulfate [Ventolin HFA] 2 puff IH Q6H 03/05/17 Aspirin [Aspirin EC] 81 mg PO DAILY 03/05/17 Bisacodyl [Dulcolax] 5 mg PO PRN PRN 03/05/17 Calcium Carbonate [Antacid Extra Strength] 750 mg PO BID 03/05/17 Clotrimazole/Betamethasone Dip [Clotrimazole-Betamethasone Crm] 1 appl TP BID Denosumab [Prolia] 60 mg SQ Q6M 03/05/17 Folic Acid 1 mg PO DAILY 03/05/17 Losartan Potassium [Cozaar] 25 mg PO DAILY 03/05/17 Magnesium 250 mg PO TID 03/05/17 Methotrexate Sodium [Methotrexate] 3 tab PO BID 03/05/17 Metoprolol Tartrate [Lopressor] 25 mg PO BID 03/05/17 Multivitamin [One Daily Multivitamin] 1 each PO DAILY 03/05/17 Naltrexone HCl [ReVia] 50 mg PO HS 03/05/17 Omeprazole 20 mg PO DAILY 03/05/17 Oxybutynin Chloride [Ditropan Xl] 5 mg PO HS 03/05/17 Trolamine Salicylate [Aspercreme] 1 appl TP QID 03/05/17 Polyethylene Glycol 3350 [Miralax] 17 gm PO DAILY btl 03/08/17 Cholecalciferol (Vitamin D3) [Vitamin D3] 2,000 unit PO DAILY #100 capsule 04/15 Furosemide [Lasix] 20 mg PO DAILY #.1 tablet 04/15/17 Levothyroxine Sodium [Synthroid] 50 mcg PO DAILY 08/16/17 Simvastatin [Zocor] 40 mg PO HS 08/16/17 Lamotrigine [Lamictal] 200 mg PO DAILY #60 tablet 08/18/17 Sulfamethoxazole/Trimethoprim [Bactrim Ds] 1 tab PO BID #20 tab 08/18/17
[2017-08-19] MEDS ORDERED: DENOSUMAB 60 MG SQ SCH (06:00)
[2017-08-22] MEDS ORDERED: METHOTREXATE SODIUM 2.5 MG TABLET PO SCH (09:00)
== END 2017-08-18 14:40 | disposition home health service (06) | DRG 690 ==
LOC: ER 07:57 → MS 11:06 → OBSVTOIN 08-17 11:56
PROVIDERS: ADMIT Allergy & Immunology; ATTEND Allergy & Immunology
PROC: 4A033R1 Measurement of Arterial Saturation, Peripheral, Percutaneous Approach (ICD-10-PCS; principal; 2017-08-16)
DX: N39.0 Urinary tract infection, site not specified (principal); B96.20 Unspecified Escherichia coli [E. coli] as the cause of diseases classified elsewhere; R41.0 Disorientation, unspecified; E03.9 Hypothyroidism, unspecified; E11.9 Type 2 diabetes mellitus without complications; I10 Essential (primary) hypertension; E78.5 Hyperlipidemia, unspecified; F41.9 Anxiety disorder, unspecified; F31.9 Bipolar disorder, unspecified; Z79.82 Long term (current) use of aspirin
CPT/HCPCS: 36415; 36600; 70450; 71010; 80048; 80053; 81001; 82550; 82553; 82803; 83880; 84439; 84443; 84484; 85007; 85025; 86140; 87040; 87086; 93005; 96365; 97161; 97165; 97530; 99285; G0378; G8978; G8979; G8980